=== PATIENT | female | born 1960 | race Caucasian/White ===

== ENCOUNTER 2020-11-05 09:41 | Outpatient (REF) | payer MEDICAID, SELFPAY | END 2020-11-05 09:42 | disposition home or self-care (01) | LOC: HO.LAB 09:41 | PROVIDERS: PCP Student in an Organized Health Care Education/Training Program; Visit Provider Internal Medicine | DX: Z20.828 Contact with and (suspected) exposure to other viral communicable diseases (principal) | CPT/HCPCS: C9803; U0003 ==

== ENCOUNTER → 2021-06-01 13:35 | Outpatient (BNVA) | payer MEDICAID, SELFPAY | PROVIDERS: PCP Student in an Organized Health Care Education/Training Program; Visit Provider Physician Assistant ==

== ENCOUNTER 2021-10-24 16:28 | Outpatient (REF) | payer MEDICAID, SELFPAY ==
--- NOTE | ~2021-10-24 | US_ITS ---
EXAMINATION: US VENOUS ULTRASOUND WITH DOPPLER LOWER EXTREMITY, LEFT CLINICAL INFORMATION: Left leg pain. COMPARISON: None TECHNIQUE: Ultrasound of the deep veins is performed from the hip to the calf with compression sonography and color and pulse Doppler assessment. Spectral analysis with color-flow imaging is performed. FINDINGS: There is normal venous compression and respiratory variation and augmented flow. The visualized common femoral vein, superficial femoral vein, profunda femoral vein, popliteal vein, and the trifurcation region shows no evidence of deep venous thrombosis. There is no significant popliteal fossa cyst. If the patient's symptoms persist, followup ultrasound in 5 days 7 days might be of value to exclude proximal propagation from a non-visualized calf vein. US/US venous duplex LE LT IMPRESSION: No DVT demonstrated in the left lower extremity.
--- NOTE | ~2021-10-24 | XR_ITS ---
EXAMINATION: XR KNEE, LEFT CLINICAL INFORMATION: Pain COMPARISON: None TECHNIQUE: Four views of the left knee. FINDINGS: Bones and soft tissues are normal. No fracture or joint effusion. Alignment is anatomic. Joint spaces are well maintained. No abnormal soft tissue calcification. XR/XR knee LT 4V IMPRESSION: No significant osseous changes to explain patient's pain symptoms No fracture. Joint spaces are preserved. Articular surfaces are smooth.
[2021-10-24 16:52] LABS: MANUAL DIFF FLAG NO
[2021-10-24 17:05] LABS: Basophils Absolute Auto 0.1 X10*3/uL (0.0-0.2); Basophils Percent Auto 0.6 % (0-2); Eosinophils Absolute Auto 0.2 X10*3/uL (0.0-0.4); Eosinophils Percent Auto 1.4 % (0-4); Hematocrit 37.1 % (37.0-47.0); Hemoglobin 12.5 g/dl (12.0-16.0); Imm Gran Abs Auto 0.05 X10*3/uL (0.00-0.03); Imm Gran Pct Auto 0.4 % (0.0-0.4); Lymphocytes Percent Auto 32.7 % (20-40); Mean Corpuscular HGB Conc 33.7 g/dl (31.0-35.0); Mean Corpuscular Hemoglobin 29.8 pg (27.0-33.0); Mean Corpuscular Volume 88.3 fL (80.0-98.0); Mean Platelet Volume 10.6 fL (9.4-12.3); Monocytes Absolute Auto 0.7 X10*3/uL (0.1-1.2); Monocytes Percent Auto 5.8 % (2-11); Neutrophils Absolute Auto 7.2 x10*3/uL (2.0-8.3); Neutrophils Percent Auto 59.1 % (45-73); Platelet Count 376 X10*3/uL (160-400); Red Cell Distribution Width 13.4 % (11.0-16.0); White Blood Count 12.2 X10*3/uL (4.8-10.8)
[2021-10-24 17:24] LABS: Anion Gap 15 (12-20); Blood Urea Nitrogen 14 mg/dL (9-16); Calcium 9.8 mg/dL (8.4-10.2); Carbon Dioxide 26 mmol/L (22-29); Chloride 104 mmol/L (96-108); Estimated Glomerular Filt Rate > 60; Glucose Random 133 mg/dL (60-115); Potassium 4.4 mmol/L (3.3-5.1); Sodium 141 mmol/L (135-145); Uric Acid 4.5 mg/dL (2.4-5.7)
[2021-10-24 18:39] LABS: Erythrocyte Sedimentation Rate 14 MM/HR (0-20)
== END 2021-10-24 16:29 | disposition home or self-care (01) ==
LOC: HO.US 16:28
PROVIDERS: Absent Provider Student in an Organized Health Care Education/Training Program; PCP Student in an Organized Health Care Education/Training Program; Visit Provider Internal Medicine
DX: M79.662 Pain in left lower leg (principal); M25.562 Pain in left knee
CPT/HCPCS: 36415; 73564; 80048; 84550; 85025; 85652; 86140; 93971

== ENCOUNTER 2021-11-14 08:23 | Outpatient (REF) | payer MEDICAID, SELFPAY ==
--- NOTE | ~2021-11-14 | MM_ITS ---
EXAMINATION: MM SCREENING DIGITAL BREAST TOMOSYNTHESIS, BILATERAL CLINICAL INFORMATION: Screening. Asymptomatic. The lifetime risk of breast cancer based on the Tyrer-Cuzick Model is 2%. COMPARISON: Mammography: 08/23/2020, 04/30/2019, 03/31/2018 TECHNIQUE: Digital breast tomosynthesis is performed in both the craniocaudal and mediolateral oblique views along with computer-aided detection (CAD). Synthesized 2D images are generated from the tomosynthesis. FINDINGS: There are scattered areas of fibroglandular density (ACR BI-RADS breast composition Category b). There are no significant masses, abnormal calcifications, or other abnormalities. Parenchymal pattern is similar to prior exams. No developing density. The skin contours are smooth. No significant changes. MM/MM tomosynthesis screening BI IMPRESSION: No mammographic evidence of malignancy. ASSESSMENT: BI-RADS 1: Negative RECOMMENDATION: Routine annual mammography screening. This patient's information was entered into a reminder system with a target due date for their next mammogram.
== END 2021-11-14 08:24 | disposition home or self-care (01) ==
LOC: HO.MAMMO 08:23
PROVIDERS: Visit Provider Student in an Organized Health Care Education/Training Program
DX: Z12.31 Encounter for screening mammogram for malignant neoplasm of breast (principal)
CPT/HCPCS: 77063; 77067

== ENCOUNTER → 2022-04-02 12:00 | Outpatient (BNVA) | payer MEDICAID, SELFPAY | PROVIDERS: PCP Student in an Organized Health Care Education/Training Program; Visit Provider Physician Assistant | DX: R19.4 Change in bowel habit (principal); Z53.20 Procedure and treatment not carried out because of patient's decision for unspecified reasons | CPT/HCPCS: 99212 ==

== ENCOUNTER 2022-05-30 09:23 | Outpatient (REF) | payer MEDICAID, SELFPAY ==
[2022-05-30 09:49] LABS: MANUAL DIFF FLAG NO
[2022-05-30 10:31] LABS: Basophils Absolute Auto 0.1 X10*3/uL (0.0-0.2); Basophils Percent Auto 0.9 % (0-2); Eosinophils Absolute Auto 0.2 X10*3/uL (0.0-0.4); Eosinophils Percent Auto 2.6 % (0-4); Hematocrit 35.3 % (37.0-47.0); Imm Gran Abs Auto 0.02 X10*3/uL (0.00-0.03); Imm Gran Pct Auto 0.2 % (0.0-0.4); Lymphocytes Absolute Auto 3.7 X10*3/uL (1.2-4.9); Lymphocytes Percent Auto 42.1 % (20-40); Mean Corpuscular Hemoglobin 29.4 pg (27.0-33.0); Mean Corpuscular Volume 86.5 fL (80.0-98.0); Mean Platelet Volume 10.7 fL (9.4-12.3); Monocytes Absolute Auto 0.5 X10*3/uL (0.1-1.2); Monocytes Percent Auto 6.1 % (2-11); Neutrophils Absolute Auto 4.2 x10*3/uL (2.0-8.3); Neutrophils Percent Auto 48.1 % (45-73); Platelet Count 338 X10*3/uL (160-400); Red Blood Count 4.08 X10*6/uL (4.20-5.50); Red Cell Distribution Width 13.8 % (11.0-16.0); White Blood Count 8.8 X10*3/uL (4.8-10.8)
[2022-05-30 11:00] LABS: Alanine Aminotransferase 20 U/L (0-31); Albumin Level 4.1 g/dL (3.5-5.0); Alkaline Phosphatase 102 U/L (39-117); Anion Gap 14 (12-20); Aspartate Amino Transferase 21 U/L (5-31); Bilirubin Total 0.2 mg/dL (0.0-1.0); Blood Urea Nitrogen 19 mg/dL (9-16); Calcium 9.3 mg/dL (8.4-10.2); Carbon Dioxide 27 mmol/L (22-29); Chloride 102 mmol/L (96-108); Estimated Glomerular Filt Rate > 60; Glucose Random 91 mg/dL (60-115); Potassium 5.2 mmol/L (3.3-5.1); Sodium 138 mmol/L (135-145); Total Protein 6.8 g/dL (6.5-8.0)
[2022-05-30 11:12] LABS: Erythrocyte Sedimentation Rate 11 MM/HR (0-20)
== END 2022-05-30 09:24 | disposition home or self-care (01) ==
LOC: HO.LAB 09:23
PROVIDERS: PCP Student in an Organized Health Care Education/Training Program; Visit Provider Physician Assistant
DX: R19.4 Change in bowel habit (principal); K52.9 Noninfective gastroenteritis and colitis, unspecified
CPT/HCPCS: 36415; 80053; 84443; 85025; 85652; 86140

== ENCOUNTER 2022-10-26 09:21 | Emergency (ER) | payer MEDICAID, SELFPAY ==
[2022-10-26 09:30] VITALS: BP 195/96; PULSE 98; RESP 18; TEMP 35.4; O2SAT 96; BMI 25.0
--- NOTE | 2022-10-26 09:36 | ED.GENADULT ---
HPI - General Adult General Chief complaint: Nausea/Vomiting/Diarrhea Stated complaint: flu like symptoms Time Seen by Provider: 10/26/22 09:36 Source: patient Mode of arrival: ambulatory Limitations: no limitations History of Present Illness HPI narrative: Pt is a 62 yo assigned female at w/ a PMHx significant for colitis, hypertension, and hypothyroidism presents w/ a 4 day hx of nausea, vomiting, and diarrhea. She reports that the vomiting stopped after the second day of symptoms but endorses continued diarrhea that is watery in consistency. She denies noting any blood or bile in her vomit and denies blood or mucous in her stool. She reports that she has not been able to eat anything since the start of symptoms but states she has been able to drink fluids. She denies cough, SOB, chest pain, or swelling in the lower extremities. She reports that she was in contact w/ someone who had similar symptoms on Saturday. Onset (ago): day(s) (4) Location: abdomen Radiation: non-radiation Severity: mild Severity scale (1-10): 2 Quality: dull Pain Consistency: constant Relieving factors: none Exacerbating factors: none Associated symptoms: nausea/vomiting Treatments prior to arrival: other (Tylenol) Related Data Home Medications Medication Instructions Recorded Confirmed calcium carbonate 500 mg-vitamin 1 tab PO BID 10/19/20 04/02/22 D3 3.125 mcg (125 unit) tablet conjugated estrogens 0.625 mg 0.625 mg PO DAILY 10/19/20 04/02/22 tablet (Premarin) cyclobenzaprine 10 mg tablet 10 mg PO TID 10/19/20 04/02/22 etodolac 400 mg tablet (Lodine) 400 mg PO BID 10/19/20 04/02/22 ibuprofen 800 mg tablet 800 mg PO BID 10/19/20 04/02/22 levothyroxine 50 mcg tablet 50 mcg PO DAILY 10/19/20 04/02/22 lisinopril 10 mg tablet 10 mg PO DAILY 10/19/20 04/02/22 loratadine 10 mg tablet 10 mg PO DAILY 10/19/20 04/02/22 multivitamin 1 tab PO DAILY 10/19/20 04/02/22 omega-3 fatty acids 1,000 mg 1,000 mg PO BID 10/19/20 04/02/22 capsule omeprazole 20 mg capsule,delayed 20 mg PO BID 10/19/20 04/02/22 release pregabalin 150 mg capsule (Lyrica) 150 mg PO TID 10/19/20 04/02/22 red yeast rice 600 mg tablet 600 mg PO DAILY 10/19/20 04/02/22 tolterodine 4 mg capsule,extended 4 mg PO QPM 10/19/20 04/02/22 release 24 hr (Detrol LA) meloxicam 7.5 mg tablet 7.5 mg PO DAILY 06/06/22 Previous Rx's Medication Instructions Recorded dicyclomine 10 mg capsule 20 mg PO TID #180 caps 02/28/22 dicyclomine 10 mg capsule 10 mg PO TID #90 caps 09/28/22 Allergies Allergy/AdvReac Type Severity Reaction Status Date / Time codeine [CODEINE] Allergy Intermediate VOMITTING Verified 07/11/22 09:57 milnacipran [From Savella] Allergy Intermediate Gastrointestinal Verified 07/11/22 09:57 Upset Review of Systems Constitutional: Constitutional: Denies chills, Denies difficulty sleeping, Denies fever(s), Denies headache(s), Denies lethargy and Denies night sweats Eyes: Eyes: Reports no additional eye complaints, Denies blurry vision, Denies change in vision, Denies diplopia, Denies eye discharge and Denies eye pain ENT: Denies headache(s) Cardiovascular: Cardiovascular: Reports no additional cardiovascular complaints, Denies chest pain, Reports lightheadedness, Denies Loss of Consciousness and Denies dyspnea Respiratory: Respiratory: Reports no additional respiratory complaints and Denies dyspnea Gastrointestinal: Gastrointestinal: Reports no additional gastrointestinal complaints, Reports abdominal pain, Denies melena, Denies hematochezia, Denies change in bowel habits, Reports change in stool character, Reports diarrhea, Reports nausea and Reports vomiting Genitourinary: Genitourinary: Denies hematuria, Denies dysuria, Denies urinary incontinence and Denies urinary urgency Musculoskeletal: Musculoskeletal: Reports no additional musculoskeletal complaints Neurologic: Denies headache(s) Psychiatric: Psychiatric: Reports no additional psychiatric complaints Endocrine: Endocrine: Reports no additional endocrine complaints Hematologic/Lymphatic: Hematologic/Lymphatic: Reports no additional hematologic/lymphatic complaints Allergic/Immunologic: Allergic/Immunologic: Reports no additional allergic/immunologic complaints PMFSH Past Medical History Attestation statement: The following information was validated with the patient. Source: old records reviewed Medical History Bowel habit changes Fibromyalgia GERD (gastroesophageal reflux disease) HTN (hypertension) Irritable bowel syndrome Joint pain Stress incontinence Thyroid disease Surgical History H/O colonoscopy History of bladder surgery History of esophagogastroduodenoscopy (EGD) Hx of hysterectomy Hx of ovarian cystectomy Hx of repair of left rotator cuff Hx of tubal ligation Social History Social History Household Members Other:: lives with BF Alcohol intake: never Patient Tobacco Use Status: Never used Tobacco Smoked in Last 30 Days: No Use of substances other than those prescribed or required for medical reasons: Yes Substance Use Type: Marijuana Advance Directives: No Current occupational status: employed Current occupation: [employer] Physical Exam ED Vital Signs: Vital Signs - 24 hr 10/26/22 09:30 10/26/22 09:50 Temperature 95.8 F L 97.9 F Pulse Rate 98 Respiratory Rate 18 Blood Pressure 195/96 H Pulse Oximetry 96 Oxygen Delivery Method Room Air BMI result Body Mass Index 25.0 Const General: cooperative, diaphoretic and tired appearing Nutritional Appearance: well nourished Orientation/consciousness: patient oriented x3 Limitations: no limitations HENMT Head: Yes normal to inspection Ears: hearing grossly normal bilaterally Mouth: Normal oral and palatal mucosa present and moist mucous membranes Neck Neck: Yes normal visual inspection and Yes no JVD Lymphatic: no lymphadenopathy noted Chest Chest palpation & inspection: normal inspection of the chest Resp Effort & Inspection: normal respiratory effort, able to speak in complete sentences, no audible wheezes, no cough and no respiratory distress Auscultation: clear to auscultation bilaterally Cardio Jugular venous distension: no JVD Rate: regular rate Rhythm: regular rhythm Heart sounds: S1 normal heart sound present and S2 normal heart sound present Peripheral pulses: Peripheral pulses 2+ throughout GI Inspection: Yes normal to inspection Palpation (GI): Soft to palpation, not firm, nontender, no guarding, not rigid, No hepatosplenomegaly present and No Rebound tenderness present Auscultation: normal bowel sounds Rectal Exam - Female: deferred Skin General skin exam: no rashes or lesions noted Neuro General: patient oriented x3 Medications Administered Discontinued Medications Generic Name Dose Route Start Last Admin Trade Name Guy PRN Reason Stop Dose Admin Acetaminophen 650 mg 10/26/22 11:20 10/26/22 11:25 Acetaminophen 325 Mg Tablet PO 10/26/22 11:21 650 mg ONCE ONE Administration Potassium Chloride 20 meq 10/26/22 10:40 10/26/22 11:13 Potassium Chloride Packet 20 Meq Packet PO 10/26/22 10:41 20 meq ONCE ONE Administration Medical Decision Making MDM Narrative Medical decision making narrative: Patient is a 62 year old assigned female at with a history of colitis, hypertension, and hypothyroidism presenting to the emergency department today with nausea, vomiting, and diarrhea. Patient's physical exam was unremarkable. Patient's blood work was unremarkable. Patient's EKG was unremarkable. I explained my physical exam findings as well as all test results to the patient. I answered all questions asked by the patient. I stressed the importance of the patient taking her medication as prescribed. I stressed the importance of the patient following up with her primary care provider. I stressed the importance of the patient returning to the emergency department immediately if her symptoms were to worsen or if she were to develop any dizziness, shortness of breath, difficulty breathing, chest pain, blurry vision, loss of vision, nausea, vomiting, abdominal pain, fever, chills, back pain, or any other complaints. Patient verbalized agreement and understanding with this treatment plan and discharge. Medical Records Medical records reviewed: Yes I reviewed the patient's medical records. Lab Data Lab results reviewed: Yes I reviewed the patient's lab results. Result diagrams: 10/26/22 10:06 10/26/22 10:06 Labs: Lab Results 10/26/22 10/26/22 10/26/22 Range/Units 09:35 09:35 10:06 WBC 8.9 (4.8-10.8) X10*3/uL RBC 4.77 (4.20-5.50) X10*6/uL Hgb 13.8 (12.0-16.0) g/dl Hct 40.4 (37.0-47.0) % MCV 84.7 (80.0-98.0) fL MCH 28.9 (27.0-33.0) pg MCHC 34.2 (31.0-35.0) g/dl RDW 13.7 (11.0-16.0) % Plt Count 302 (160-400) X10*3/uL MPV 9.6 (9.4-12.3) fL Immature Gran % (Auto) 0.3 (0.0-0.4) % Neut % (Auto) 65.0 (45-73) % Lymph % (Auto) 25.8 (20-40) % [place] % (Auto) 8.1 (2-11) % Eos % (Auto) 0.2 (0-4) % Baso % (Auto) 0.6 (0-2) % Lymph # (Auto) 2.3 (1.2-4.9) X10*3/uL [place] # (Auto) 0.7 (0.1-1.2) X10*3/uL Eos # (Auto) 0.0 (0.0-0.4) X10*3/uL Baso # (Auto) 0.1 (0.0-0.2) X10*3/uL Abs Immat Gran (auto) 0.03 (0.00-0.03) X10*3/uL Absolute Neuts (auto) 5.8 (2.0-8.3) x10*3/uL Absolute Nucleated RBC 0.000 (0.0-0.012) X10*3/uL Nucleated RBC % (auto) 0.0 (0.0-0.2) /100WBC Sodium (135-145) mmol/L Potassium (3.3-5.1) mmol/L Chloride (96-108) mmol/L Carbon Dioxide (22-29) mmol/L Anion Gap (12-20) BUN (9-16) mg/dL Creatinine (0.5-1.4) mg/dL Estim Creat Clear Calc Estimated GFR Random Glucose (60-115) mg/dL Calcium (8.4-10.2) mg/dL Magnesium (1.6-2.6) mg/dL Total Bilirubin (0.0-1.0) mg/dL AST (5-31) U/L ALT (0-31) U/L Alkaline Phosphatase (39-117) U/L Troponin I High Sens (<3.5-17.0) ng/L Total Protein (6.5-8.0) g/dL Albumin (3.5-5.0) g/dL COVID-19 (RADHIKA) Negative (Negative) COVID-19 Clin Com See Note Influenza Type A (SARAH) Negative (Negative) Influenza Type B (SARAH) Negative (Negative) Influenza A & B Note See Note 10/26/22 10/26/22 10/26/22 Range/Units 10:06 10:06 12:08 WBC (4.8-10.8) X10*3/uL RBC (4.20-5.50) X10*6/uL Hgb (12.0-16.0) g/dl Hct (37.0-47.0) % MCV (80.0-98.0) fL MCH (27.0-33.0) pg MCHC (31.0-35.0) g/dl RDW (11.0-16.0) % Plt Count (160-400) X10*3/uL MPV (9.4-12.3) fL Immature Gran % (Auto) (0.0-0.4) % Neut % (Auto) (45-73) % Lymph % (Auto) (20-40) % [place] % (Auto) (2-11) % Eos % (Auto) (0-4) % Baso % (Auto) (0-2) % Lymph # (Auto) (1.2-4.9) X10*3/uL [place] # (Auto) (0.1-1.2) X10*3/uL Eos # (Auto) (0.0-0.4) X10*3/uL Baso # (Auto) (0.0-0.2) X10*3/uL Abs Immat Gran (auto) (0.00-0.03) X10*3/uL Absolute Neuts (auto) (2.0-8.3) x10*3/uL Absolute Nucleated RBC (0.0-0.012) X10*3/uL Nucleated RBC % (auto) (0.0-0.2) /100WBC Sodium 138 (135-145) mmol/L Potassium 3.2 L D (3.3-5.1) mmol/L Chloride 98 (96-108) mmol/L Carbon Dioxide 24 (22-29) mmol/L Anion Gap 19 (12-20) BUN 9 D (9-16) mg/dL Creatinine 0.66 (0.5-1.4) mg/dL Estim Creat Clear Calc 75.6 Estimated GFR > 60 Random Glucose 124 H (60-115) mg/dL Calcium 9.4 (8.4-10.2) mg/dL Magnesium 1.9 (1.6-2.6) mg/dL Total Bilirubin 0.4 (0.0-1.0) mg/dL AST 31 D (5-31) U/L ALT 27 (0-31) U/L Alkaline Phosphatase 135 H D (39-117) U/L Troponin I High Sens 32.4 H 35.3 H (<3.5-17.0) ng/L Total Protein 7.5 (6.5-8.0) g/dL Albumin 4.4 (3.5-5.0) g/dL COVID-19 (RADHIKA) (Negative) COVID-19 Clin Com Influenza Type A (SARAH) (Negative) Influenza Type B (SARAH) (Negative) Influenza A & B Note ECG Data Attestation: I personally reviewed and interpreted this ECG as follows: Prior ECG tracings: available for review Interpretation: Vent. Rate: 068 BPM ? ? Atrial Rate: 068 BPM P-R Int: 130 ms? QRS Dur: 092 ms QT Int: 388 ms ? ? ? P-R-T Axes: 068 -42 090 degrees QTc Int: 412 ms ? Normal sinus rhythm with sinus arrhythmia Left anterior fascicular block Intra-ventricular conduction delay Left ventricular hypertrophy with repolarization abnormality ( R in aVL , Mohinder product , Romhilt-Krishna ) Abnormal ECG When compared with ECG of 15-SEP-2019 15:43, No significant change was found ? Electronically Signed By:FADY BROOKS MD Dictated By: Karan Brooks MD Signed By: Electronically signed by Kaarn Brooks MD 10/26/22 2285 Discharge Plan Discharge Clinical Impression: Enteritis Patient Disposition: Home, Self-Care Instructions: Enteritis (ED) Additional Instructions: Follow up with your primary care provider. Return to the emergency department immediately if your symptoms worsen or if you develop any dizziness, shortness of breath, difficulty breathing, chest pain, blurry vision, loss of vision, nausea, vomiting, abdominal pain, fever, chills, back pain, or any other complaints. Prescriptions: No Action multivitamin Tablet 1 tab PO DAILY cyclobenzaprine 10 mg Tablet 10 mg PO TID omega-3 fatty acids 1,000 mg Capsule 1,000 mg PO BID ibuprofen 800 mg Tablet 800 mg PO BID tolterodine [Detrol LA] 4 mg Capsule,Extended Release 24hr 4 mg PO QPM levothyroxine 50 mcg Tablet 50 mcg PO DAILY lisinopril 10 mg Tablet 10 mg PO DAILY Premarin 0.625 mg Tablet 0.625 mg PO DAILY omeprazole 20 mg Capsule,Delayed Release(Dr/Ec) 20 mg PO BID etodolac [Lodine] 400 mg Tablet 400 mg PO BID loratadine 10 mg Tablet 10 mg PO DAILY pregabalin [Lyrica] 150 mg Capsule 150 mg PO TID calcium carbonate-vitamin D3 [Calcium 500 + D (D3)] 500 mg(1,250mg) -125 unit Tablet 1 tab PO BID red yeast rice 600 mg Tablet 600 mg PO DAILY dicyclomine 10 mg capsule 20 mg PO TID Qty: 180 1RF dicyclomine 10 mg capsule 10 mg PO TID Qty: 90 0RF meloxicam 7.5 mg tablet 7.5 mg PO DAILY Referrals: Perlita Dill MD [Primary Care Provider] - Stand Alone Forms: Work/School Release Interventions: ED Discharge Assessment Last Done: 10/26/22 13:03 Discharge Date/Time: 10/26/22 13:03 Print Language: Kazakh
--- NOTE | 2022-10-26 09:49 | ECG_ITS ---
Test Reason : Abd pain Blood Pressure : / mmHG Vent. Rate : 068 BPM Atrial Rate : 068 BPM P-R Int : 130 ms QRS Dur : 092 ms QT Int : 388 ms P-R-T Axes : 068 -42 090 degrees QTc Int : 412 ms Normal sinus rhythm with sinus arrhythmia Left anterior fascicular block Intra-ventricular conduction delay Left ventricular hypertrophy with repolarization abnormality ( R in aVL , Mohinder product , Romhilt-Krishna ) Abnormal ECG When compared with ECG of 15-SEP-2019 15:43, No significant change was found Referred By: Crystal Hudson Electronically Signed By:FADY BROOKS MD
[2022-10-26 09:50] VITALS: TEMP 36.6
[2022-10-26 09:58] LABS: COVID-19 Test Negative (Negative); IDNOW Serial# 16C4AD1C
[2022-10-26 09:59] LABS: IDNOW Serial# BCCEAD1C; Influenza A Negative (Negative); Influenza B2 Negative (Negative)
[2022-10-26 10:12] LABS: MANUAL DIFF FLAG NO
[2022-10-26 10:13] LABS: Basophils Absolute Auto 0.1 X10*3/uL (0.0-0.2); Basophils Percent Auto 0.6 % (0-2); Eosinophils Percent Auto 0.2 % (0-4); Hematocrit 40.4 % (37.0-47.0); Hemoglobin 13.8 g/dl (12.0-16.0); Imm Gran Abs Auto 0.03 X10*3/uL (0.00-0.03); Imm Gran Pct Auto 0.3 % (0.0-0.4); Lymphocytes Absolute Auto 2.3 X10*3/uL (1.2-4.9); Lymphocytes Percent Auto 25.8 % (20-40); Mean Corpuscular HGB Conc 34.2 g/dl (31.0-35.0); Mean Corpuscular Hemoglobin 28.9 pg (27.0-33.0); Mean Corpuscular Volume 84.7 fL (80.0-98.0); Mean Platelet Volume 9.6 fL (9.4-12.3); Monocytes Absolute Auto 0.7 X10*3/uL (0.1-1.2); Monocytes Percent Auto 8.1 % (2-11); Neutrophils Absolute Auto 5.8 x10*3/uL (2.0-8.3); Platelet Count 302 X10*3/uL (160-400); Red Blood Count 4.77 X10*6/uL (4.20-5.50); Red Cell Distribution Width 13.7 % (11.0-16.0); White Blood Count 8.9 X10*3/uL (4.8-10.8)
[2022-10-26 10:38] LABS: Alanine Aminotransferase 27 U/L (0-31); Albumin Level 4.4 g/dL (3.5-5.0); Alkaline Phosphatase 135 U/L (39-117); Anion Gap 19 (12-20); Aspartate Amino Transferase 31 U/L (5-31); Bilirubin Total 0.4 mg/dL (0.0-1.0); Blood Urea Nitrogen 9 mg/dL (9-16); Calcium 9.4 mg/dL (8.4-10.2); Carbon Dioxide 24 mmol/L (22-29); Chloride 98 mmol/L (96-108); Creatinine Clr Calc Pharmacy 75.6; Estimated Glomerular Filt Rate > 60; Glucose Random 124 mg/dL (60-115); Magnesium 1.9 mg/dL (1.6-2.6); Potassium 3.2 mmol/L (3.3-5.1); Sodium 138 mmol/L (135-145); Total Protein 7.5 g/dL (6.5-8.0)
[2022-10-26 10:41] LABS: Troponin-I High Sensitivity 32.4 ng/L (<3.5-17.0)
--- NOTE | 2022-10-26 10:56 | PC.NURSE ---
Provider instructed she does not want an IV line
[2022-10-26] MEDS: Potassium Chloride Packet 20 MEQ PACKET PO (11:13)
[2022-10-26] MEDS: Acetaminophen 325 MG TABLET 650 MG PO (11:25)
[2022-10-26 12:32] LABS: Troponin-I High Sensitivity 35.3 ng/L (<3.5-17.0)
== END 2022-10-26 13:03 | disposition home or self-care (01) ==
PROVIDERS: Physician Assistant Medical; Emergency Provider Emergency Medicine Emergency Medical Services; PCP Student in an Organized Health Care Education/Training Program
DX: K52.9 Noninfective gastroenteritis and colitis, unspecified (principal); Z20.822 Contact with and (suspected) exposure to COVID-19; I10 Essential (primary) hypertension; F12.90 Cannabis use, unspecified, uncomplicated; Z79.899 Other long term (current) drug therapy
CPT/HCPCS: 36415; 80053; 83735; 84484; 85025; 87502; 87635; 93005; 99283; 99284

== ENCOUNTER 2022-10-28 10:21 | Emergency (ER) | payer MEDICAID, SELFPAY ==
[2022-10-28 11:06] VITALS: BP 175/91; PULSE 86; RESP 17; TEMP 35.2; O2SAT 98; BMI 25.2
--- NOTE | 2022-10-28 11:08 | ED_ITS ---
HPI - General Adult General Chief complaint: Nausea/Vomiting/Diarrhea Stated complaint: virus in stomach Time Seen by Provider: 10/28/22 11:08 Source: patient and family (mother) Mode of arrival: ambulatory Limitations: no limitations History of Present Illness HPI narrative: Patient is a 62 year old assigned female at with a history of colitis presenting to the emergency department today with continued diarrhea and nausea. Patient states that she was evaluated here 2 days ago and diagnosed with a viral illness however, she is still having diarrhea and some intermittent nausea. Patient states that she has not taken any anti-diarrheal. Patient denies any dizziness, lightheadedness, abdominal pain, vomiting, fever, chills, blurry vision, double vision, loss of vision, chest pain, difficulty breathing, shortness of breath, back pain, night sweats, pain with urination, increased urinary frequency, increased urinary urgency, blood in her urine or stool, syncope or a near syncopal episode, recent trauma or falls, bowel incontinence, bladder incontinence, bowel retention, bladder retention, or any other complaints at this time. Onset (ago): day(s) Severity: mild Severity scale (1-10): 2 Relieving factors: none Exacerbating factors: none Associated symptoms: nausea/vomiting Treatments prior to arrival: none Related Data Home Medications Medication Instructions Recorded Confirmed calcium carbonate 500 mg-vitamin 1 tab PO BID 10/19/20 04/02/22 D3 3.125 mcg (125 unit) tablet conjugated estrogens 0.625 mg 0.625 mg PO DAILY 10/19/20 04/02/22 tablet (Premarin) cyclobenzaprine 10 mg tablet 10 mg PO TID 10/19/20 04/02/22 etodolac 400 mg tablet (Lodine) 400 mg PO BID 10/19/20 04/02/22 ibuprofen 800 mg tablet 800 mg PO BID 10/19/20 04/02/22 levothyroxine 50 mcg tablet 50 mcg PO DAILY 10/19/20 04/02/22 lisinopril 10 mg tablet 10 mg PO DAILY 10/19/20 04/02/22 loratadine 10 mg tablet 10 mg PO DAILY 10/19/20 04/02/22 multivitamin 1 tab PO DAILY 10/19/20 04/02/22 omega-3 fatty acids 1,000 mg 1,000 mg PO BID 10/19/20 04/02/22 capsule omeprazole 20 mg capsule,delayed 20 mg PO BID 10/19/20 04/02/22 release pregabalin 150 mg capsule (Lyrica) 150 mg PO TID 10/19/20 04/02/22 red yeast rice 600 mg tablet 600 mg PO DAILY 10/19/20 04/02/22 tolterodine 4 mg capsule,extended 4 mg PO QPM 10/19/20 04/02/22 release 24 hr (Detrol LA) meloxicam 7.5 mg tablet 7.5 mg PO DAILY 06/06/22 Previous Rx's Medication Instructions Recorded dicyclomine 10 mg capsule 20 mg PO TID #180 caps 02/28/22 dicyclomine 10 mg capsule 10 mg PO TID #90 caps 09/28/22 ondansetron 4 mg disintegrating 4 mg PO Q8H 3 days #9 tabs 10/28/22 tablet Allergies Allergy/AdvReac Type Severity Reaction Status Date / Time codeine [CODEINE] Allergy Intermediate VOMITTING Verified 07/11/22 09:57 milnacipran [From Savella] Allergy Intermediate Gastrointestinal Verified 07/11/22 09:57 Upset Review of Systems Constitutional: Constitutional: Reports no additional constitutional complaints, Denies chills, Denies fever(s) and Denies night sweats Eyes: Eyes: Reports no additional eye complaints, Denies blurry vision, Denies change in vision, Denies diplopia, Denies eye discharge, Denies loss of vision and Denies eye pain ENT: Denies dizziness Cardiovascular: Cardiovascular: Reports no additional cardiovascular complaints, Denies chest pain, Denies lightheadedness, Denies Loss of Consciousness and Denies dyspnea Respiratory: Respiratory: Reports no additional respiratory complaints and Denies dyspnea Gastrointestinal: Gastrointestinal: Reports no additional gastrointestinal complaints, Denies abdominal pain, Denies melena, Denies hematochezia, Denies change in bowel habits, Denies change in stool character, Reports diarrhea and Reports nausea Genitourinary: Genitourinary: Denies hematuria, Denies urinary frequency, Denies dysuria, Denies urinary incontinence, Denies urinary hesitancy and Denies urinary urgency Musculoskeletal: Musculoskeletal: Reports no additional musculoskeletal complaints, Denies numbness and Denies tingling Neurologic: Denies dizziness, Denies loss of vision, Denies numbness and Denies tingling Psychiatric: Psychiatric: Reports no additional psychiatric complaints Endocrine: Endocrine: Reports no additional endocrine complaints Hematologic/Lymphatic: Hematologic/Lymphatic: Reports no additional hematologic/lymphatic complaints Allergic/Immunologic: Allergic/Immunologic: Reports no additional allergic/immunologic complaints PMFSH Past Medical History Attestation statement: The following information was validated with the patient. Source: old records reviewed Medical History Bowel habit changes Fibromyalgia GERD (gastroesophageal reflux disease) HTN (hypertension) Irritable bowel syndrome Joint pain Stress incontinence Thyroid disease Surgical History H/O colonoscopy History of bladder surgery History of esophagogastroduodenoscopy (EGD) Hx of hysterectomy Hx of ovarian cystectomy Hx of repair of left rotator cuff Hx of tubal ligation Social History Social History Household Members Other:: lives with BF Alcohol intake: never Patient Tobacco Use Status: Never used Tobacco Substance Use Type: Marijuana Advance Directives: No Advance Directives Information Provided: No Current occupational status: employed Current occupation: [employer] Physical Exam ED Vital Signs: Vital Signs - 24 hr 10/28/22 11:06 Temperature 95.4 F L Pulse Rate 86 Respiratory Rate 17 Blood Pressure 175/91 H Pulse Oximetry 98 Oxygen Delivery Method Room Air BMI result Body Mass Index 25.2 Const General: cooperative, no acute distress, alert and awake Nutritional Appearance: well nourished Orientation/consciousness: patient oriented x3 Limitations: no limitations [facility] Head: Yes normal to inspection and Yes atraumatic Ears: hearing grossly normal bilaterally and external ears normal General nose exam: Normal external nose present, no nasal discharge noted and no epistaxis Face and sinus: Yes normal facial exam, No abrasion and No laceration Mouth: Normal oral and palatal mucosa present, no drooling and no muffled voice Eyes General: appearance normal, both eyes and all related structures Periorbital: periorbital findings normal Eyelids: Yes eyelids normal Conjunctivae: conjunctivae normal Pupils: Equal, round and reactive pupils present EOM: EOMs intact bilaterally Neck Neck: Yes normal visual inspection, Yes full ROM and Yes no lymphadenopathy Chest Chest palpation & inspection: normal inspection of the chest Resp Effort & Inspection: normal respiratory effort and able to speak in complete sentences Auscultation: clear to auscultation bilaterally Cardio Rate: regular rate Rhythm: regular rhythm GI Inspection: Yes normal to inspection Palpation (GI): Soft to palpation, not firm, nontender, no guarding and not rigid Neuro General: patient oriented x3 and moves all extremities Cranial nerves: Yes Equal, round and reactive pupils present Cognition (Neuro): normal cognition Motor exam (neuro): 5/5 motor strength present throughout Sensory Exam: Normal double simultaneous stimulation for sensation Coordination: [id number] test normal Extrem General: Yes normal to inspection, Yes full ROM and Yes capillary refill normal Psych Appearance: grossly normal Mental Status: mental status grossly normal Affect: normal affect Attitude: cooperative Thought process: Normal thought process present Thought content: Normal thought content present Insight: Good insight present (Psych) Medical Decision Making MDM Narrative Medical decision making narrative: Patient is a 62 year old assigned female at with a history of colitis presenting to the emergency department today with continued diarrhea and nausea. Patient's physical exam was unremarkable. Patient stated that she would prefer to have something for the nausea and take an anti-diarrheal at home rather than have more testing done today since nothing has changed since she was seen the other day. I explained my physical exam findings to the patient and the patient's mother. I answered all questions asked by the patient and the patient's mother. I stressed the importance of the patient taking her medication as prescribed. I stressed the importance of the patient following up with her primary care provider and her GI specialist. I stressed the importance of the patient returning to the emergency department immediately if her symptoms were to worsen or if she were to develop any dizziness, shortness of breath, difficulty breathing, chest pain, blurry vision, loss of vision, nausea, vomiting, abdominal pain, fever, chills, back pain, or any other complaints. Patient and the patient's mother verbalized agreement and understanding with this treatment plan and discharge. Medical Records Medical records reviewed: Yes I reviewed the patient's medical records. Discharge Plan Discharge Clinical Impression: Enteritis Patient Disposition: Home, Self-Care Instructions: Enteritis (ED) Additional Instructions: Follow up with your primary care provider and a GI specialist. Return to the emergency department immediately if your symptoms worsen or if you develop any dizziness, shortness of breath, difficulty breathing, chest pain, blurry vision, loss of vision, nausea, vomiting, abdominal pain, fever, chills, back pain, or any other complaints. Prescriptions: New ondansetron 4 mg tablet,disintegrating 4 mg PO Q8H 3 Days Qty: 9 0RF No Action multivitamin Tablet 1 tab PO DAILY cyclobenzaprine 10 mg Tablet 10 mg PO TID omega-3 fatty acids 1,000 mg Capsule 1,000 mg PO BID ibuprofen 800 mg Tablet 800 mg PO BID tolterodine [Detrol LA] 4 mg Capsule,Extended Release 24hr 4 mg PO QPM levothyroxine 50 mcg Tablet 50 mcg PO DAILY lisinopril 10 mg Tablet 10 mg PO DAILY Premarin 0.625 mg Tablet 0.625 mg PO DAILY omeprazole 20 mg Capsule,Delayed Release(Dr/Ec) 20 mg PO BID etodolac [Lodine] 400 mg Tablet 400 mg PO BID loratadine 10 mg Tablet 10 mg PO DAILY pregabalin [Lyrica] 150 mg Capsule 150 mg PO TID calcium carbonate-vitamin D3 [Calcium 500 + D (D3)] 500 mg(1,250mg) -125 unit Tablet 1 tab PO BID red yeast rice 600 mg Tablet 600 mg PO DAILY dicyclomine 10 mg capsule 20 mg PO TID Qty: 180 1RF dicyclomine 10 mg capsule 10 mg PO TID Qty: 90 0RF meloxicam 7.5 mg tablet 7.5 mg PO DAILY Referrals: [facility] [place] [facility] [Provider Group] Perlita Dill MD [Primary Care Provider] - Interventions: ED Discharge Assessment Last Done: 10/28/22 11:19 Discharge Date/Time: 10/28/22 11:19 Print Language: Pashto
== END 2022-10-28 11:19 | disposition home or self-care (01) ==
LOC: HO.ED 11:22
PROVIDERS: Emergency Provider Emergency Medicine; PCP Student in an Organized Health Care Education/Training Program
DX: K52.9 Noninfective gastroenteritis and colitis, unspecified (principal); Z79.899 Other long term (current) drug therapy
CPT/HCPCS: 99282

== ENCOUNTER 2022-11-30 12:06 | Outpatient (REF) | payer MEDICAID, SELFPAY ==
--- NOTE | ~2022-11-30 | MM_ITS ---
EXAMINATION: MM SCREENING DIGITAL BREAST TOMOSYNTHESIS, BILATERAL CLINICAL INFORMATION: Screening. Asymptomatic. The lifetime risk of breast cancer based on the Tyrer-Cuzick Model is 3%. COMPARISON: Mammography: 11/14/2021, 08/23/2020, 04/30/2019 TECHNIQUE: Digital breast tomosynthesis is performed in both the craniocaudal and mediolateral oblique views along with computer-aided detection (CAD). Synthesized 2D images are generated from the tomosynthesis. FINDINGS: There are scattered areas of fibroglandular density (ACR BI-RADS breast composition Category b). There are no significant masses, abnormal calcifications, or other abnormalities. Parenchymal pattern is similar to prior studies. There is no developing density or architectural abnormality. The axilla and skin contours are unremarkable. No significant changes. MM/MM tomosynthesis screening BI IMPRESSION: No mammographic evidence of malignancy. ASSESSMENT: BI-RADS 1: Negative RECOMMENDATION: Routine annual mammography screening. This patient's information was entered into a reminder system with a target due date for their next mammogram.
== END 2022-11-30 12:07 | disposition home or self-care (01) ==
LOC: HO.MAMMO 12:06
PROVIDERS: PCP Student in an Organized Health Care Education/Training Program; Visit Provider Student in an Organized Health Care Education/Training Program
DX: Z12.31 Encounter for screening mammogram for malignant neoplasm of breast (principal)
CPT/HCPCS: 77063; 77067

== ENCOUNTER 2023-07-12 10:43 | Outpatient (REF) | payer MEDICAID, SELFPAY ==
[2023-07-12 15:21] LABS: Cholesterol 147 mg/dL; HDL Cholesterol 44 mg/dL; LDL Cholesterol Calculated 36 mg/dl; Triglycerides 336 mg/dL
== END 2023-07-12 10:44 | disposition home or self-care (01) ==
LOC: HO.CHCLDS 10:43
PROVIDERS: Visit Provider Family Medicine
DX: E78.5 Hyperlipidemia, unspecified (principal)
CPT/HCPCS: 36415; 80061

== ENCOUNTER 2023-08-12 14:10 | Outpatient (AMB) | payer MEDICAID, SELFPAY ==
--- NOTE | 2023-08-12 14:16 | A.OFFVIS_ITS ---
Intake Vital Signs 08/12/23 14:41 Height 5 ft 2 in BP 133/70 Blood Pressure Location Lt brachial Pulse 70 Intake Visit Reasons: refill request appointment Allergies codeine [CODEINE] Allergy (Intermediate, Verified 07/11/22 09:57) VOMITTING milnacipran [From Savella] Allergy (Intermediate, Verified 07/11/22 09:57) Gastrointestinal Upset Medication List - Last Reconciled 08/12/23 by Dona Leo PA-C calcium carbonate-vitamin D3 500 mg-3.125 mcg (125 unit) 1 tab PO BID conjugated estrogens (Premarin) 0.625 mg PO DAILY cyclobenzaprine 10 mg PO TID dicyclomine 10 mg PO TID 30 days etodolac (Lodine) 400 mg PO BID ibuprofen 800 mg PO BID levothyroxine 50 mcg PO DAILY lisinopril 10 mg PO DAILY loratadine 10 mg PO DAILY meloxicam 7.5 mg PO DAILY multivitamin 1 tab PO DAILY omega-3 fatty acids 1,000 mg PO BID omeprazole 20 mg PO BID ondansetron 4 mg PO Q8H 3 days pregabalin (Lyrica) 150 mg PO TID red yeast rice 600 mg PO DAILY tolterodine ER (Detrol LA) 4 mg PO QPM HPI HPI Comments History of Present Illness Details A 63 y/o female seen about 1 year ago- she had declined colonoscopy- she had agreed to cologuard-negative She is taking dicyclomine 10 mg- t.i.d., with good response for IBS - she is not having a colonoscopy- She again is telling me she was dx with colitis in 2005-she has abdominal pain-diarrhea- flare ups, she says she distinctly recalls the diagnoses, however she did not follow with doctors region for colonoscopy She has a normal bowel pattern however then says she cannot go without taking dicyclomine or she has diarrhea lasting an entire day or more-a significant cramping Appetite is good-no acid reflux No respiratory or cardiac issues No nausea, vomiting, hematemesis, hematochezia fever chills [facility] Medical History (Updated 08/13/23 @ 08:54 by Dona Leo PA-C) History of colitis Bowel habit changes GERD (gastroesophageal reflux disease) Thyroid disease Fibromyalgia Joint pain Irritable bowel syndrome Stress incontinence HTN (hypertension) Surgical History Hx of ovarian cystectomy Hx of repair of left rotator cuff Hx of tubal ligation Hx of hysterectomy History of bladder surgery History of esophagogastroduodenoscopy (EGD) H/O colonoscopy Social History Household Members Other:: lives with BF Alcohol intake: never Patient Tobacco Use Status: Never used Tobacco Substance Use Type: Marijuana Current occupational status: employed Current occupation: [employer] Review of Systems Const All systems reviewed & are unremarkable except as noted in HPI and below Card Denies chest pain and Denies dyspnea Resp Denies dyspnea GI Denies hematochezia, Reports GI cramping, Reports diarrhea, Reports loose stools, Denies nausea and Denies vomiting Psych Reports anxiety Physical Exam Vital Signs: Last Vital Signs Pulse 70 08/12/23 14:41 BP 133/70 08/12/23 14:41 Const General: cooperative, healthy appearing, comfortable and no acute distress Orientation/consciousness: patient oriented x3 Limitations: no limitations Eyes Conjunctivae: conjunctivae normal Sclerae: sclerae normal Resp Effort & Inspection: normal respiratory effort and able to speak in complete sentences Auscultation: clear to auscultation bilaterally, no rales, no rhonchi and no wheezes Cardio Rate: regular rate Rhythm: regular rhythm Heart sounds: S1 normal heart sound present and S2 normal heart sound present GI Palpation (GI): Soft to palpation and nontender Auscultation: normal bowel sounds Skin General skin exam: no rashes or lesions noted Neuro General: patient oriented x3 Extrem General: Yes full ROM Psych Appearance: grossly normal and well kempt Speech and movement: Clear speech present Affect: Animated affect present and Anxious affect present Attitude: cooperative Thought process: Flight of ideas present Thought content: Normal thought content present Insight: Good insight present (Psych) Judgement: Good judgement present (Psych) Assessment & Plan Assessment & Plan (1) Bowel habit changes: Comment: ? DX colits-recommend colonoscopy for further eval had declined initially however discuss benefit risk ratio she has now agreed-GI history is unclear R/O IBD-other endoscopic causes to account for her symptoms she may cont-dicyclomine 10 mg-she has good response Code(s): R19.4 - Change in bowel habit (2) History of colitis: Code(s): Z87.19 - Personal history of other diseases of the digestive system Plan dx Colonoscopy, MiraLax Gatorade split prep She will do labs and stool calprotectin Orders: Orders Colonoscopy - GI Use Only 08/12/23 Z12.11 - Encounter for screening for malignant neoplasm of colon Calprotectin, Fecal Today R19.7 - Diarrhea, unspecified Complete Blood Count Auto Diff Today K52.9 - Noninfective gastroenteritis and colitis, unspecified Comprehensive Met. Panel Today K58.9 - Irritable bowel syndrome without diarrhea Thyroid Stimulating Hormone Today R19.8 - Other specified symptoms and signs involving the digestive system and abdomen C Reactive Protein Today R19.4 - Change in bowel habit, Z87.19 - Personal history of other diseases of the digestive system Erythrocyte Sedimentation Rate Today R19.7 - Diarrhea, unspecified Endomysial IgA rflx Titer Today Z87.19 - Personal history of other diseases of the digestive system Transglutaminase IgA Today R19.7 - Diarrhea, unspecified Medications: New polyethylene glycol 3350 (Miralax) Take as directed by mouth the day before your procedure. 238 grams PO ONCE PRN 238 grams 0RF laxative effect 1 day bisacodyl (Dulcolax (bisacodyl)) Take 4 tablets by mouth at 12:00pm the day before your procedure. 20 mg (4 x 5 mg) PO ONCE 4 tabs 0RF colonoscopy prep 1 day Z12.11 - Encounter for screening for malignant neoplasm of colon Changed From dicyclomine 10 mg PO TID 90 caps 3RF To dicyclomine 10 mg PO TID 30 days 90 caps 1RF Refilled dicyclomine 10 mg PO TID 90 caps 2RF 30 days Patient Instructions: 63-year-old female intermittent diarrhea abdominal cramping GI history is unclear had recommend colonoscopy previously which she had declined Detailed discussion today benefit versus risk ratio discussed procedure, indication, need for escorted due to anesthesia as well as MiraLax Gatorade split prep. She has now agreed to proceed. Colonoscopy- Encouraged to call questions or concerns. We appreciate the opportunity assist in the care the patient Coding Level of Care Code Est Pt Level 3 (01788) Diagnoses Bowel habit changes R19.4 History of colitis Z87.19 Time Spent (min) 35
[2023-08-12 14:41] VITALS: BP 133/70; PULSE 70
== END 2023-08-12 16:15 | disposition home or self-care (01) ==
PROVIDERS: PCP Student in an Organized Health Care Education/Training Program; Visit Provider Physician Assistant
DX: R19.4 Change in bowel habit (principal); Z87.19 Personal history of other diseases of the digestive system
CPT/HCPCS: 99213

== ENCOUNTER → 2023-08-12 14:10 | Outpatient (BNVA) | payer MEDICAID, SELFPAY | PROVIDERS: PCP Student in an Organized Health Care Education/Training Program; Visit Provider Physician Assistant | DX: R19.4 Change in bowel habit (principal); Z87.19 Personal history of other diseases of the digestive system | CPT/HCPCS: 99212 ==

== ENCOUNTER 2023-09-23 08:36 | Outpatient (REF) | payer MEDICAID, SELFPAY ==
[2023-09-23 14:52] LABS: MANUAL DIFF FLAG NO
[2023-09-23 15:00] LABS: Basophils Absolute Auto 0.1 X10*3/uL (0.0-0.2); Basophils Percent Auto 1.1 % (0-2); Eosinophils Absolute Auto 0.2 X10*3/uL (0.0-0.4); Eosinophils Percent Auto 2.9 % (0-4); Hematocrit 31.4 % (37.0-47.0); Hemoglobin 10.6 g/dl (12.0-16.0); Imm Gran Abs Auto 0.02 X10*3/uL (0.00-0.03); Imm Gran Pct Auto 0.3 % (0.0-0.4); Lymphocytes Absolute Auto 3.4 X10*3/uL (1.2-4.9); Lymphocytes Percent Auto 42.2 % (20-40); Mean Corpuscular HGB Conc 33.8 g/dl (31.0-35.0); Mean Platelet Volume 11.7 fL (9.4-12.3); Monocytes Absolute Auto 0.6 X10*3/uL (0.1-1.2); Neutrophils Absolute Auto 3.7 x10*3/uL (2.0-8.3); Neutrophils Percent Auto 46.5 % (45-73); Platelet Count 356 X10*3/uL (160-400); Red Blood Count 3.53 X10*6/uL (4.20-5.50); Red Cell Distribution Width 13.4 % (11.0-16.0)
[2023-09-23 15:20] LABS: Cholesterol 185 mg/dL (<200); HDL Cholesterol 49 mg/dL (>40); Iron 76 mcg/dL (30-160); LDL Cholesterol Calculated 78 mg/dL (<100); Percent Iron Saturation 16 % (15-50); Total Iron Binding Capacity 476 mcg/dL (228-428); Triglycerides 290 mg/dL (<150); Unsaturated Iron Binding 400 ug/dL
[2023-09-23 15:30] LABS: Ferritin 45 ng/mL (10-250)
[2023-09-25 23:32] LABS: Apolipoprotein B 106 mg/dL (<90)
== END 2023-09-23 08:37 | disposition home or self-care (01) ==
LOC: HO.CHCLDS 08:36
PROVIDERS: Visit Provider Family Medicine
DX: D64.9 Anemia, unspecified (principal); E78.5 Hyperlipidemia, unspecified
CPT/HCPCS: 36415; 80061; 82172; 82728; 83540; 85025

== ENCOUNTER 2023-12-06 11:46 | Outpatient (REF) | payer MEDICAID, SELFPAY ==
--- NOTE | ~2023-12-06 | MM_ITS ---
EXAMINATION: MM SCREENING DIGITAL BREAST TOMOSYNTHESIS, BILATERAL CLINICAL INFORMATION: Screening. Asymptomatic. COMPARISON: Mammography: 11/30/2022, 11/14/2021, 08/23/2020, 04/30/2019, and dating back to 2011. TECHNIQUE: Digital breast tomosynthesis is performed in both the craniocaudal and mediolateral oblique views along with computer-aided detection (CAD). Synthesized 2D images are generated from the tomosynthesis. FINDINGS: There are scattered areas of fibroglandular density (ACR BI-RADS breast composition Category b). There are no suspicious masses, suspicious grouped calcifications, or areas of architectural distortion in either breast. The parenchymal pattern is stable from prior exams. No skin or axillary changes. MM/MM tomosynthesis screening BI IMPRESSION: No mammographic evidence of malignancy. ASSESSMENT: BI-RADS BI-RADS 1 - Negative RECOMMENDATION: Routine annual mammography screening. 1 year F/U This examination should not preclude the clinical evaluation of a suspicious palpable abnormality. This patient's information was entered into a reminder system with a target due date for their next mammogram.
== END 2023-12-06 11:47 | disposition home or self-care (01) ==
LOC: HO.MAMMO 11:46
PROVIDERS: PCP Family Medicine; Visit Provider Family Medicine
DX: Z12.31 Encounter for screening mammogram for malignant neoplasm of breast (principal)
CPT/HCPCS: 77063; 77067

== ENCOUNTER → 2023-12-06 12:15 | Outpatient (BNV) | payer MEDICAID, SELFPAY | PROVIDERS: PCP Family Medicine; Visit Provider Radiology Diagnostic Radiology | DX: Z12.31 Encounter for screening mammogram for malignant neoplasm of breast (principal) | CPT/HCPCS: 77063; 77067 ==

== ENCOUNTER 2024-01-06 09:03 | Outpatient (REF) | payer MEDICAID, SELFPAY ==
--- NOTE | ~2024-01-06 | XR_ITS ---
EXAMINATION: XR CERVICAL SPINE CLINICAL INFORMATION: Neck pain, crepitus COMPARISON: Cervical spine x-ray on 11/19/2016 TECHNIQUE: 5 views of the cervical spine were obtained. FINDINGS: The visualized cervical vertebrae are intact with mild C4-C5 kyphosis. There is grade 1 C5-C6 retrolisthesis. There is severe loss of C5-C6 and C6-C7 intervertebral disc height. Anterior sharp C5-C7 syndesmophytes are present. Odontoid process is intact with normal C1/C2 lateral masses alignment. Pre-dental interval is normal. Pre vertebral soft tissue is normal in thickness. Bilateral oblique x-rays of cervical spine show patent cervical neural foramina. XR/XR cervical spine 4V IMPRESSION: 1. Interval progression of Cervical spondylosis C5-C7. 2. Unchanged Grade 1 retrolisthesis C5-C6. 3. No acute fracture or dislocation. No neural foraminal narrowing. 4. Interval development of Mild C4-C5 kyphosis.
== END 2024-01-06 09:04 | disposition home or self-care (01) ==
LOC: HO.XRAY 09:03
PROVIDERS: PCP Family Medicine; Visit Provider Family Medicine
DX: M54.2 Cervicalgia (principal); G89.29 Other chronic pain
CPT/HCPCS: 72050

== ENCOUNTER 2024-01-15 14:29 | Outpatient (AMB) | payer MEDICAID, SELFPAY ==
--- NOTE | 2024-01-15 14:35 | A.OFFVIS_ITS ---
Intake Vital Signs 01/15/24 14:35 Height 5 ft 2 in Handedness Ambidextrous Intake Visit Reasons: differential specialist- Trigger middle finger of left hand/ Confirmed Intake Note: Nicol is a 63 year old right hand dominant female who presents today as a new patient for a evaluation for her left middle trigger finger. Patient reports her finger keeps locking every day. She states it is worse in the morning/night. Patient reports that she can't make a full fist due to her middle finger locking. Allergies codeine [CODEINE] Allergy (Intermediate, Verified 01/15/24 14:38) VOMITTING milnacipran [From Savella] Allergy (Intermediate, Verified 01/15/24 14:38) Gastrointestinal Upset HPI differential specialist- Trigger middle finger of left hand/ Confirmed HPI Details 63-year-old right hand dominant female jo ann cazares presents in the office to day, as a new patient, for an evaluation of possible left middle finger trigger finger. The patient reports her finger locks daily. She states this is worse in the morning and at night. She claims she is unable to make a closed fist due to her middle digit locking. Patient has an allergy history, as follows: -Codeine; vomiting -Milnacipran; GI upset Patient is currently taking, as follows: -Bisacodyl 20 mg PO once -Calcium cabonate-vitamin D3 500 mg -3.1 25 mcg I tab PO BID -Conjugated estrogens 0.625 mg PO daily -Cyclobenzaprine 10 mg PO TID -Dicyclomine 10 mg PO TID -Etodolac 400 mg PO BID -Ibuprofen 800 mg PO BID -Levothyroxine 50 mcg PO daily -Lisinopril 10 mg PO daily -Loratadine 10 mg PO daily -Meloxicam 7.5 mg PO daily -Multivitamin 1 tab PO Daily -Cordova-3 fatty acid 1,000 mg PO BID -Omeprazole 20 mg PO BID -Ondansetron 4 mg PO Q8H -Polyethylene glycol 3350 238 grams PO o nce PRN -Pregabalin 150 mg PO daily -Red yeast rice 600 mg PO daily -Tolterodine ER 4 mg PO QPM Patient has a medical history, as follows: -History of colitis -Bowel habit changes -GERD (gastroesophageal reflux disease) -Hypothyroidism -Fibromyalgia [facility] Medical History (Updated 01/15/24 @ 15:26 by Bonita Sultana) History of colitis Bowel habit changes GERD (gastroesophageal reflux disease) Thyroid disease Fibromyalgia Joint pain Irritable bowel syndrome Stress incontinence HTN (hypertension) Surgical History Hx of ovarian cystectomy Hx of repair of left rotator cuff Hx of tubal ligation Hx of hysterectomy History of bladder surgery History of esophagogastroduodenoscopy (EGD) H/O colonoscopy Social History Household Members Other:: lives with BF Alcohol intake: never Patient Tobacco Use Status: Never used Tobacco Substance Use Type: Marijuana Current occupational status: employed Current occupation: [employer] Review of Systems Const All systems reviewed & are unremarkable except as noted in HPI and below Physical Exam Const General: cooperative and no acute distress Orientation/consciousness: patient oriented x3 Resp Effort & Inspection: normal respiratory effort and able to speak in complete sentences Cardio Peripheral pulses: Peripheral pulses 2+ throughout Skin General skin exam: no rashes or lesions noted Neuro General: patient oriented x3 Extrem Other: Left hand middle finger: Tenderness to palpation over A1c jatinder with active locking and catching. Sensation intact. Capillary refill is brisk. Remainder of hand exam was within normal limits. Assessment & Plan Assessment & Plan (1) Trigger finger, left middle finger: Code(s): M65.332 - Trigger finger, left middle finger Plan Ms. Ha is a 63-year-old right hand dominant female who presents in the office today, as a new patient, for an evaluation of possible left middle finger trigger finger. The patient reports her finger locks daily. She states this is worse in the morning and at night. She claims she is unable to make a closed fist due to her middle digit locking. Patient has an allergy history, as follows: -Codeine; vomiting -Milnacipran; GI upset Patient is currently taking, as follows: -Bisacodyl 20 mg PO once -Calcium cabonate-vitamin D3 500 mg -3.125 mcg I tab PO BID -Conjugated estrogens 0.625 mg PO daily -Cyclobenzaprine 10 mg PO TID -Dicyclomine 10 mg PO TID -Etodolac 400 mg PO BID -Ibuprofen 800 mg PO BID -Levothyroxine 50 mcg PO daily -Lisinopril 10 mg PO daily -Loratadine 10 mg PO daily -Meloxicam 7.5 mg PO daily -Multivitamin 1 tab PO Daily -Cordova-3 fatty acid 1,000 mg PO BID -Omeprazole 20 mg PO BID -Ondansetron 4 mg PO Q8H -Polyethylene glycol 3350 238 grams PO once PRN -Pregabalin 150 mg PO daily -Red yeast rice 600 mg PO daily -Tolterodine ER 4 mg PO QPM Patient has a medical history, as follows: -History of colitis -Bowel habit changes -GERD (gastroesophageal reflux disease) -Hypothyroidism -Fibromyalgia The patient would like to move forward with the left middle finger, trigger finger release. A booking sheet has been given to the surgical product sales consultant. They will reach out to the patient with available days and times. I discussed in detail the procedure and what to expect pre and post operatively. We discussed the risks, benefits and alternatives to the surgery as well as the rehabilitation course. The risks; which include, but are not limited to infection, bleeding, nerve injury, ongoing pain, swelling, and stiffness, perioperative risk of injury to bones and soft tissues, and blood clots. I have answered all questions and with their understanding they have consented to move forward with a left middle finger trigger finger release to be performed by Dr. Renetta Cage. Follow up will be at the post operative appointment, or sooner if needed. Patient Instructions: Scribed by Bonita Sultana biomedical specialist, for Jackelyn Dobbins PA-C on 01/15/2024 at 2:30 pm, EST. Coding Level of Care Code New Pt Level 4 (52562) Diagnoses Trigger finger, left middle finger M65.332
== END 2024-01-15 14:57 | disposition home or self-care (01) ==
PROVIDERS: PCP Student in an Organized Health Care Education/Training Program; Visit Provider Physician Assistant
DX: M65.332 Trigger finger, left middle finger (principal)
CPT/HCPCS: 99204

== ENCOUNTER → 2024-01-15 14:29 | Outpatient (BNVA) | payer MEDICAID, SELFPAY | PROVIDERS: PCP Student in an Organized Health Care Education/Training Program; Visit Provider Physician Assistant | DX: M65.332 Trigger finger, left middle finger (principal) | CPT/HCPCS: 99212 ==

== ENCOUNTER 2024-03-09 09:38 | Outpatient (REF) | payer MEDICAID, SELFPAY ==
[2024-03-09 14:43] LABS: MANUAL DIFF FLAG NO
[2024-03-09 14:56] LABS: Basophils Absolute Auto 0.1 X10*3/uL (0.0-0.2); Basophils Percent Auto 1.4 % (0-2); Eosinophils Absolute Auto 0.2 X10*3/uL (0.0-0.4); Eosinophils Percent Auto 2.8 % (0-4); Hematocrit 32.2 % (37.0-47.0); Hemoglobin 10.8 g/dl (12.0-16.0); Imm Gran Abs Auto 0.03 X10*3/uL (0.00-0.03); Imm Gran Pct Auto 0.4 % (0.0-0.4); Lymphocytes Absolute Auto 3.4 X10*3/uL (1.2-4.9); Lymphocytes Percent Auto 43.1 % (20-40); Mean Corpuscular HGB Conc 33.5 g/dl (31.0-35.0); Mean Corpuscular Hemoglobin 29.9 pg (27.0-33.0); Mean Corpuscular Volume 89.2 fL (80.0-98.0); Mean Platelet Volume 11.4 fL (9.4-12.3); Monocytes Absolute Auto 0.5 X10*3/uL (0.1-1.2); Monocytes Percent Auto 5.9 % (2-11); Neutrophils Absolute Auto 3.7 x10*3/uL (2.0-8.3); Neutrophils Percent Auto 46.4 % (45-73); Platelet Count 363 X10*3/uL (160-400); Red Blood Count 3.61 X10*6/uL (4.20-5.50); Red Cell Distribution Width 14.5 % (11.0-16.0); White Blood Count 7.9 X10*3/uL (4.8-10.8)
[2024-03-09 15:35] LABS: Alanine Aminotransferase 17 U/L (0-31); Albumin Level 3.9 g/dL (3.5-5.0); Alkaline Phosphatase 45 U/L (39-117); Anion Gap 12 (12-20); Aspartate Amino Transferase 22 U/L (5-31); Bilirubin Total 0.2 mg/dL (0.0-1.0); Blood Urea Nitrogen 34 mg/dL (9-16); Calcium 9.3 mg/dL (8.4-10.2); Carbon Dioxide 27 mmol/L (22-29); Chloride 104 mmol/L (96-108); Cholesterol 200 mg/dL (<200); Estimated Glomerular Filt Rate 44; Glucose Random 77 mg/dL (60-115); HDL Cholesterol 55 mg/dL (>40); Iron 98 mcg/dL (30-160); LDL Cholesterol Calculated 97 mg/dL (<100); Percent Iron Saturation 20 % (15-50); Potassium 4.6 mmol/L (3.3-5.1); Sodium 138 mmol/L (135-145); Total Iron Binding Capacity 486 mcg/dL (228-428); Total Protein 6.9 g/dL (6.5-8.0); Triglycerides 241 mg/dL (<150); Unsaturated Iron Binding 388 ug/dL
[2024-03-09 15:50] LABS: Ferritin 84 ng/mL (10-250); TSH reflex Free T4 4.47 uIU/mL (0.32-4.0)
[2024-03-09 16:35] LABS: Free T4 (Free Thyroxine) 0.97 ng/dL (0.71-1.85)
== END 2024-03-09 09:39 | disposition home or self-care (01) ==
LOC: HO.CHCLDS 09:38
PROVIDERS: Visit Provider Family Medicine
DX: I10 Essential (primary) hypertension (principal); E78.5 Hyperlipidemia, unspecified; D64.9 Anemia, unspecified; Z13.29 Encounter for screening for other suspected endocrine disorder
CPT/HCPCS: 36415; 80053; 80061; 82728; 83540; 84439; 84443; 85025

== ENCOUNTER 2024-04-07 13:33 | Outpatient (REF) | payer MEDICARE, MEDICAID, SELFPAY ==
[2024-04-07 14:14] LABS: MANUAL DIFF FLAG NO
[2024-04-07 14:24] LABS: Basophils Absolute Auto 0.1 X10*3/uL (0.0-0.2); Basophils Percent Auto 0.9 % (0-2); Eosinophils Absolute Auto 0.2 X10*3/uL (0.0-0.4); Eosinophils Percent Auto 2.1 % (0-4); Hematocrit 28.5 % (37.0-47.0); Hemoglobin 9.7 g/dl (12.0-16.0); Imm Gran Abs Auto 0.02 X10*3/uL (0.00-0.03); Imm Gran Pct Auto 0.3 % (0.0-0.4); Lymphocytes Absolute Auto 3.5 X10*3/uL (1.2-4.9); Lymphocytes Percent Auto 44.5 % (20-40); Mean Corpuscular Hemoglobin 30.2 pg (27.0-33.0); Mean Corpuscular Volume 88.8 fL (80.0-98.0); Mean Platelet Volume 11.4 fL (9.4-12.3); Monocytes Absolute Auto 0.6 X10*3/uL (0.1-1.2); Monocytes Percent Auto 7.3 % (2-11); Neutrophils Absolute Auto 3.5 x10*3/uL (2.0-8.3); Neutrophils Percent Auto 44.9 % (45-73); Platelet Count 363 X10*3/uL (160-400); Red Blood Count 3.21 X10*6/uL (4.20-5.50); Red Cell Distribution Width 14.6 % (11.0-16.0); White Blood Count 7.8 X10*3/uL (4.8-10.8)
[2024-04-07 15:07] LABS: Alanine Aminotransferase 19 U/L (0-31); Albumin Level 4.1 g/dL (3.5-5.0); Alkaline Phosphatase 60 U/L (39-117); Anion Gap 15 (12-20); Aspartate Amino Transferase 23 U/L (5-31); Bilirubin Total 0.2 mg/dL (0.0-1.0); Blood Urea Nitrogen 45 mg/dL (9-16); Calcium 9.5 mg/dL (8.4-10.2); Carbon Dioxide 23 mmol/L (22-29); Chloride 105 mmol/L (96-108); Estimated Glomerular Filt Rate 36; Glucose Random 87 mg/dL (60-115); Iron 69 mcg/dL (30-160); Magnesium 1.7 mg/dL (1.6-2.6); Percent Iron Saturation 15 % (15-50); Potassium 4.1 mmol/L (3.3-5.1); Sodium 139 mmol/L (135-145); Total Iron Binding Capacity 463 mcg/dL (228-428); Unsaturated Iron Binding 394 ug/dL
[2024-04-07 15:26] LABS: Ferritin 87 ng/mL (10-250); TSH reflex Free T4 1.51 uIU/mL (0.32-4.0)
[2024-04-07 15:34] LABS: Vitamin B12 1184 pg/mL (200-900)
== END 2024-04-07 13:34 | disposition home or self-care (01) ==
LOC: HO.CHCLDS 13:33
PROVIDERS: Visit Provider Family Medicine
DX: R25.2 Cramp and spasm (principal); R79.9 Abnormal finding of blood chemistry, unspecified
CPT/HCPCS: 36415; 80053; 82550; 82607; 82728; 82746; 83540; 83735; 84443; 85025

== ENCOUNTER 2024-04-24 09:20 | Outpatient (REF) | payer MEDICARE, MEDICAID, SELFPAY ==
[2024-04-24 14:46] LABS: Anion Gap 14 (12-20); Blood Urea Nitrogen 39 mg/dL (9-16); Calcium 9.3 mg/dL (8.4-10.2); Carbon Dioxide 25 mmol/L (22-29); Chloride 104 mmol/L (96-108); Estimated Glomerular Filt Rate 40; Glucose Random 87 mg/dL (60-115); Potassium 4.2 mmol/L (3.3-5.1); Sodium 139 mmol/L (135-145)
== END 2024-04-24 09:21 | disposition home or self-care (01) ==
LOC: HO.CHCLDS 09:20
PROVIDERS: Visit Provider Family Medicine
DX: R89.9 Unspecified abnormal finding in specimens from other organs, systems and tissues (principal)
CPT/HCPCS: 36415; 80048; 82550

== ENCOUNTER 2024-05-05 15:06 | Outpatient (REF) | payer MEDICARE, MEDICAID, SELFPAY ==
[2024-05-06 03:22] LABS: Syphilis Screen Nonreactive (Nonreactive)
[2024-05-06 03:37] LABS: HIV AB/AG Nonreactive (Nonreactive); HIV Num 1 0.05 S/CO (0.00-0.99)
[2024-05-06 21:22] LABS: Lyme Abs Screen <0.90 index
== END 2024-05-05 15:07 | disposition home or self-care (01) ==
LOC: HO.CHCLDS 15:06
PROVIDERS: Visit Provider Family Medicine
DX: Z11.4 Encounter for screening for human immunodeficiency virus [HIV] (principal); R41.3 Other amnesia; F03.90 Unspecified dementia, unspecified severity, without behavioral disturbance, psychotic disturbance, mood disturbance, and anxiety; N17.9 Acute kidney failure, unspecified
CPT/HCPCS: 36415; 86617; 86618; 86780; 87389

== ENCOUNTER 2024-05-14 08:13 | Outpatient (REF) | payer MEDICAID, SELFPAY | END 2024-05-14 08:14 | disposition home or self-care (01) | LOC: HO.CHCLNP 08:13 | PROVIDERS: Visit Provider Family Medicine | DX: K21.9 Gastro-esophageal reflux disease without esophagitis (principal) | CPT/HCPCS: 87338 ==

== ENCOUNTER 2024-07-15 18:08 | Outpatient (REF) | payer MEDICARE, SELFPAY ==
--- NOTE | ~2024-07-15 | MR_ITS ---
EXAMINATION: MR BRAIN WITHOUT CONTRAST CLINICAL INFORMATION: Mild cognitive disease. COMPARISON: No relevant prior imaging. TECHNIQUE: MRI of the brain was obtained using routine sequences without contrast. FINDINGS: There is no intracranial mass effect or midline shift. No abnormal extra-axial collection. Lateral and third ventricles are normal. No hydrocephalus. Midline structures including the cervicomedullary junction are normal. No acute bone marrow signal changes. There is no acute territorial infarct. No pathological magnetic susceptibility artifact. Intracranial vascular flow voids are maintained. There is no mastoid middle ear effusion. No acute paranasal sinus disease. Globes and orbits are symmetric. MR/MR head/brain wo con IMPRESSION: Normal brain MRI. Electronically signed by: Gaudencio Rodriguez MD 07/28/2024 12:38 PM EDT
== END 2024-07-15 18:09 | disposition home or self-care (01) ==
LOC: HO.MRI 18:08
PROVIDERS: PCP Family Medicine; Visit Provider Family Medicine
DX: R41.3 Other amnesia (principal)
CPT/HCPCS: 70551

== ENCOUNTER 2024-11-07 14:03 | Outpatient (REF) | payer MEDICARE, SELFPAY | END 2024-11-07 14:04 | disposition home or self-care (01) | LOC: HO.HHCLNP 14:03 | PROVIDERS: Visit Provider Internal Medicine Geriatric Medicine | DX: J02.9 Acute pharyngitis, unspecified (principal) | CPT/HCPCS: 87070 ==

== ENCOUNTER 2024-11-08 02:34 | Emergency (ER) | payer OTHER, SELFPAY ==
[2024-11-08 02:45] VITALS: BP 123/39; PULSE 65; RESP 18; TEMP 35.9; O2SAT 97; BMI 27.4
[2024-11-08] MEDS: diphenhydrAMINE HCL 50 MG/ML VIAL IVPUSH (03:02)
[2024-11-08] MEDS: Famotidine/PF 20 MG/2 ML VIAL IVPUSH (03:02)
[2024-11-08] MEDS: dexAMETHasone sod phosphate 10 MG/ML VIAL IVPUSH (03:02)
--- NOTE | 2024-11-08 04:27 | ED.ALLEREA ---
HPI - Allergic Reaction General Chief complaint: Allergic Reaction Stated complaint: allergic reaction Time Seen by Provider: 11/08/24 02:54 Source: patient Mode of arrival: ambulatory Limitations: no limitations History of Present Illness ED Provider: HPI narrative: Patient with no history of allergic reactions in the past he is on lisinopril for blood pressure control started on amoxicillin which he has taken before for sore throat noticed swelling of the tongue without any rash or itching no lip swelling no difficulty in breathing Related Data Home Medications ?Medication ?Instructions ?Recorded ?Confirmed calcium 500 mg (as 1 tab PO BID 10/19/20 04/02/22 carbonate)-vitamin D3 3.125 mcg (125 unit) tablet conjugated estrogens 0.625 mg 0.625 mg PO DAILY 10/19/20 04/02/22 tablet (Premarin) cyclobenzaprine 10 mg tablet 10 mg PO TID 10/19/20 04/02/22 etodolac 400 mg tablet (Lodine) 400 mg PO BID 10/19/20 04/02/22 ibuprofen 800 mg tablet 800 mg PO BID 10/19/20 04/02/22 levothyroxine 50 mcg tablet 50 mcg PO DAILY 10/19/20 04/02/22 lisinopril 10 mg tablet 10 mg PO DAILY 10/19/20 04/02/22 loratadine 10 mg tablet 10 mg PO DAILY 10/19/20 04/02/22 multivitamin 1 tab PO DAILY 10/19/20 04/02/22 omega-3 fatty acids 1,000 mg 1,000 mg PO BID 10/19/20 04/02/22 capsule omeprazole 20 mg capsule,delayed 20 mg PO BID 10/19/20 04/02/22 release pregabalin 150 mg capsule (Lyrica) 150 mg PO TID 10/19/20 04/02/22 red yeast rice 600 mg tablet 600 mg PO DAILY 10/19/20 04/02/22 tolterodine 4 mg capsule,extended 4 mg PO QPM 10/19/20 04/02/22 release 24 hr (Detrol LA) meloxicam 7.5 mg tablet 7.5 mg PO DAILY 06/06/22 Previous Rx's ?Medication ?Instructions ?Recorded ondansetron 4 mg disintegrating 4 mg PO Q8H 3 days #9 tabs 10/28/22 tablet bisacodyl 5 mg tablet,delayed 20 mg (4 x 5 mg) PO ONCE 08/12/23 release (Dulcolax (bisacodyl)) colonoscopy prep 1 day #4 tabs dicyclomine 10 mg capsule 10 mg PO TID 30 days #90 caps 08/12/23 polyethylene glycol 3350 17 238 g PO ONCE PRN laxative effect 08/12/23 gram/dose oral powder (Miralax) 1 day #238 grams amlodipine 2.5 mg tablet 2.5 mg PO DAILY #30 tabs 11/08/24 Allergies Allergy/AdvReac Type Severity Reaction Status Date / Time codeine [CODEINE] Allergy Intermediate VOMITTING Verified 11/08/24 02:48 milnacipran [From Savella] Allergy Intermediate Gastrointestinal Verified 11/08/24 02:48 Upset Review of Systems Review of Systems: Yes all other systems are reviewed and are negative [facility] Past Medical History Medical History History of colitis Bowel habit changes GERD (gastroesophageal reflux disease) Thyroid disease Fibromyalgia Joint pain Irritable bowel syndrome Stress incontinence HTN (hypertension) Surgical History Hx of ovarian cystectomy Hx of repair of left rotator cuff Hx of tubal ligation Hx of hysterectomy History of bladder surgery History of esophagogastroduodenoscopy (EGD) H/O colonoscopy Social History Social History Household Members Other:: lives with Alcohol intake: never Patient Tobacco Use Status: Never used Tobacco Smoked in Last 30 Days: No Use of substances other than those prescribed or required for medical reasons: No Substance Use Type: Marijuana Advance Directives: No Do you have a plan to hurt others: No Plan Current occupational status: employed Current occupation: [employer] Physical Exam ED Vital Signs: Vital Signs - 24 hr 11/08/24 07:11 Temperature 97.8 F Pulse Rate 68 Respiratory Rate 18 Blood Pressure 127/77 Pulse Oximetry 98 Oxygen Delivery Method Room Air BMI result Body Mass Index 27.4 Appearance: Alert. Oriented X3. No acute distress. Eyes: No pallor or icterus ENT: Large tongue no stridor uvula normal lungs clear Neck: Normal inspection. Neck supple. CVS: Normal heart rate and rhythm. Pulses normal. Respiratory: No respiratory distress. Equal air entry bilateral, no wheezing/rales/rhonchi Abdomen: Soft and nontender. Skin: Skin warm and dry. Normal skin color. Normal skin turgor. Extremities: No lower extremity edema. No calf tenderness Neuro: Oriented X 3. No motor deficit. Medications Administered Discontinued Medications Generic Name Dose Route Start Last Admin Trade Name Guy PRN Reason Stop Dose Admin Dexamethasone Sodium Phosphate 10 mg 11/08/24 02:54 11/08/24 03:02 Dexamethasone Sod Phosphate 10 Mg/Ml Vial IVPUSH 11/08/24 02:55 10 mg ONCE ONE Administration Diphenhydramine HCl 50 mg 11/08/24 02:54 11/08/24 03:02 Diphenhydramine Hcl 50 Mg/Ml Vial IVPUSH 11/08/24 02:55 50 mg ONCE ONE Administration Famotidine 20 mg 11/08/24 02:55 11/08/24 03:02 Famotidine/Pf 20 Mg/2 Ml Vial IVPUSH 11/08/24 02:56 20 mg ONCE ONE Administration Medical Decision Making Medical Decision Making [facility] Narrative: Patient with localized angioedema of the tongue likely from base unable to lisinopril which she been taking patient was given prophylactic Benadryl on steroids felt better swelling has decreased not progress to lips or uvula breathing normally patient advised to stop lisinopril Stephen ganesh for blood pressure control Differential Diagnosis Differential Diagnoses: The differential diagnosis associated with the presentation includes Discharge Plan Discharge Clinical Impression: Angioedema Patient Disposition: Home, Self-Care Instructions: Angioedema (ED) Additional Instructions: Stop taking lisinopril you have allergic reaction to lisinopril Continue other medications Start taking amlodipine 2.5 mg daily for blood pressure control Follow up with your PCP Report to the ER if worsening of the swelling of the tongue or shortness a breath Prescriptions: New amlodipine 2.5 mg tablet 2.5 mg PO DAILY Qty: 30 0RF No Action multivitamin Tablet 1 tab PO DAILY cyclobenzaprine 10 mg Tablet 10 mg PO TID omega-3 fatty acids 1,000 mg Capsule 1,000 mg PO BID ibuprofen 800 mg Tablet 800 mg PO BID tolterodine [Detrol LA] 4 mg Capsule,Extended Release 24hr 4 mg PO QPM levothyroxine 50 mcg Tablet 50 mcg PO DAILY lisinopril 10 mg Tablet 10 mg PO DAILY Premarin 0.625 mg Tablet 0.625 mg PO DAILY omeprazole 20 mg Capsule,Delayed Release(Dr/Ec) 20 mg PO BID etodolac [Lodine] 400 mg Tablet 400 mg PO BID loratadine 10 mg Tablet 10 mg PO DAILY pregabalin [Lyrica] 150 mg Capsule 150 mg PO TID calcium carbonate-vitamin D3 [Calcium 500 + D (D3)] 500 mg(1,250mg) -125 unit Tablet 1 tab PO BID red yeast rice 600 mg Tablet 600 mg PO DAILY ondansetron 4 mg tablet,disintegrating 4 mg PO Q8H 3 Days Qty: 9 0RF meloxicam 7.5 mg tablet 7.5 mg PO DAILY dicyclomine 10 mg capsule 10 mg PO TID 30 Days Qty: 90 2RF bisacodyl [Dulcolax (bisacodyl)] 5 mg tablet,delayed release (DR/EC) 20 mg PO ONCE 1 Days Qty: 4 0RF Rx Instructions: Take 4 tablets by mouth at 12:00pm the day before your procedure. polyethylene glycol 3350 [Miralax] 17 gram/dose powder 238 g PO ONCE PRN (Reason: laxative effect) 1 Days Qty: 238 0RF Rx Instructions: Take as directed by mouth the day before your procedure. Interventions: ED Discharge Assessment Last Done: 11/08/24 07:11 Discharge Date/Time: 11/08/24 07:12 Print Language: Northern Irish
[2024-11-08 07:11] VITALS: BP 127/77; PULSE 68; RESP 18; TEMP 36.6; O2SAT 98
== END 2024-11-08 07:12 | disposition home or self-care (01) ==
PROVIDERS: Emergency Provider Internal Medicine; PCP Family Medicine
DX: J02.9 Acute pharyngitis, unspecified (principal); T36.0X5A Adverse effect of penicillins, initial encounter; Y92.9 Unspecified place or not applicable; Z79.899 Other long term (current) drug therapy
CPT/HCPCS: 96374; 96375; 99284; J1100; J1200

== ENCOUNTER 2024-12-07 08:33 | Outpatient (REF) | payer OTHER, SELFPAY ==
--- NOTE | ~2024-12-07 | MM_ITS ---
EXAMINATION: MM SCREENING DIGITAL BREAST TOMOSYNTHESIS, BILATERAL CLINICAL INFORMATION: Screening. Asymptomatic. COMPARISON: Mammography: Comparison is made with available priors TECHNIQUE: Digital breast mammography with tomosynthesis is performed in both the craniocaudal and mediolateral oblique views along with computer-aided detection (CAD). FINDINGS: There are scattered areas of fibroglandular density (ACR BI-RADS breast composition Category b). There are no significant masses, abnormal calcifications, or other abnormalities. MM/MM tomosynthesis screening BI IMPRESSION: No mammographic evidence of malignancy. ASSESSMENT: BI-RADS BI-RADS 1 - Negative RECOMMENDATION: Routine annual mammography screening. 1 year F/U This examination should not preclude the clinical evaluation of a suspicious palpable abnormality. This patient's information was entered into a reminder system with a target due date for their next mammogram. Electronically signed by: Elenita Fortune DO 12/13/2024 05:51 PM JULIOCESAR
== END 2024-12-07 08:34 | disposition home or self-care (01) ==
LOC: HO.MAMMO 08:33
PROVIDERS: PCP Family Medicine; Visit Provider Family Medicine
DX: Z12.31 Encounter for screening mammogram for malignant neoplasm of breast (principal)
CPT/HCPCS: 77063; 77067

== ENCOUNTER → 2024-12-07 08:45 | Outpatient (BNV) | payer OTHER, SELFPAY | PROVIDERS: PCP Family Medicine; Visit Provider Internal Medicine | DX: Z12.31 Encounter for screening mammogram for malignant neoplasm of breast (principal) | CPT/HCPCS: 77063; 77067 ==

== ENCOUNTER 2025-04-30 09:33 | Outpatient (REF) | payer OTHER, SELFPAY ==
--- OUTSIDE RECORDS SUMMARY | 2025-04-30 09:53 | XMS_ITS | Encounter Summary ---
Author Organization [employer] Address [address] [place] [address] Care Team Providers Care Yard Motor Operator Name Role Phone Perlita Dill MD Primary Care Provider [phone] Katelyn Porter MD Primary Care Provider [phone] Encounter Details Date Type Department Care Team (Latest Contact Info) Description 10/03/2022 Abstract [facility] CONVERSIONS Dental, Provider, DDS Social History Tobacco Use Types Packs/Day Years Used Date Smoking Tobacco: Never Assessed Comments Unknown Sex and Gender Information Value Date Recorded Sex Assigned at Female 10/01/2022 10:21 AM EDT Legal Sex Female 10:21 AM EDT Gender Identity Female 10/01/2022 10:21 AM EDT Sexual Orientation Straight 10/01/2022 10 :21 AM EDT documented as of this encounter Plan of Treatment Upcoming Encounters Date Type Department Care Team (Late st Contact Info) Description 05/17/2025 9:30 AM EDT Clinical Support [facility] [address] [place] [address] documented as of this encounter Visit Diagnoses Not on filedocumented in this encounter Care Teams Yard Motor Operator Relationship Specialty Start Date End Date Perlita Dill MD [address], [place] [id number] PCP - General Family Medicine 04/01/13 02/07/23 Katelyn Porter MD [address], [place] [phone] PCP - General Family Medicine 02/08/23 [facility] Surgeon Orthopaedic Surgery 01/15/24 documented as of this encounter
[2025-04-30 14:57] LABS: MANUAL DIFF FLAG NO
[2025-04-30 15:03] LABS: Basophils Absolute Auto 0.1 X10*3/uL (0.0-0.2); Basophils Percent Auto 1.2 % (0-2); Eosinophils Absolute Auto 0.2 X10*3/uL (0.0-0.4); Eosinophils Percent Auto 2.8 % (0-4); Hematocrit 34.1 % (37.0-47.0); Hemoglobin 11.3 g/dl (12.0-16.0); Imm Gran Abs Auto 0.02 X10*3/uL (0.00-0.03); Imm Gran Pct Auto 0.2 % (0.0-0.4); Lymphocytes Absolute Auto 3.1 X10*3/uL (1.2-4.9); Lymphocytes Percent Auto 37.5 % (20-40); Mean Corpuscular HGB Conc 33.1 g/dl (31.0-35.0); Mean Corpuscular Hemoglobin 28.6 pg (27.0-33.0); Mean Corpuscular Volume 86.3 fL (80.0-98.0); Mean Platelet Volume 11.3 fL (9.4-12.3); Monocytes Absolute Auto 0.7 X10*3/uL (0.1-1.2); Neutrophils Absolute Auto 4.1 x10*3/uL (2.0-8.3); Neutrophils Percent Auto 50.3 % (45-73); Platelet Count 344 X10*3/uL (160-400); Red Blood Count 3.95 X10*6/uL (4.20-5.50); Red Cell Distribution Width 15.2 % (11.0-16.0); White Blood Count 8.2 X10*3/uL (4.8-10.8)
[2025-04-30 16:11] LABS: Alanine Aminotransferase 19 U/L (0-31); Albumin Level 4.1 g/dL (3.5-5.0); Anion Gap 11 (12-20); Aspartate Amino Transferase 29 U/L (5-31); Bilirubin Total 0.3 mg/dL (0.0-1.0); Blood Urea Nitrogen 28 mg/dL (9-16); Calcium 9.6 mg/dL (8.4-10.2); Carbon Dioxide 26 mmol/L (22-29); Chloride 103 mmol/L (96-108); Cholesterol 160 mg/dL (<200); Estimated Glomerular Filt Rate 53; Ferritin 41 ng/mL (10-250); Glucose Random 78 mg/dL (60-115); HDL Cholesterol 49 mg/dL (>40); Iron 99 mcg/dL (30-160); LDL Cholesterol Calculated 53 mg/dL (<100); Percent Iron Saturation 22 % (15-50); Potassium 4.1 mmol/L (3.3-5.1); Sodium 136 mmol/L (135-145); TSH reflex Free T4 1.95 uIU/mL (0.32-4.0); Total Iron Binding Capacity 450 mcg/dL (228-428); Total Protein 6.8 g/dL (6.5-8.0); Triglycerides 291 mg/dL (<150); Unsaturated Iron Binding 351 ug/dL
[2025-04-30 17:08] LABS: Alkaline Phosphatase 58 U/L (39-117)
== END 2025-04-30 09:34 | disposition home or self-care (01) ==
LOC: HO.CHCLDS 09:33
PROVIDERS: Visit Provider Family Medicine
DX: D64.9 Anemia, unspecified (principal); E03.9 Hypothyroidism, unspecified
CPT/HCPCS: 36415; 80053; 80061; 82728; 83540; 84443; 85025

== ENCOUNTER 2025-09-06 11:53 | Outpatient (AMB) | payer OTHER, SELFPAY ==
--- NOTE | 2025-09-06 11:58 | A.OFFVIS_ITS ---
Intake Visit Reasons: Memory, Fm, RLS Allergies codeine (CODEINE) Allergy (Intermediate, Verified 09/06/25 12:04) VOMITTING milnacipran (From Savella) Allergy (Intermediate, Verified 09/06/25 12:04) Gastrointestinal Upset Medication List - Last Reconciled 09/06/25 by Itzel Bhandari CNP albuterol sulfate 90 mcg/actuation (Ventolin HFA) 2 puffs inhalation Q4H PRN amlodipine 5 mg PO DAILY bisacodyl (Dulcolax (bisacodyl)) 20 mg (4 x 5 mg) PO ONCE 1 day calcium carbonate-vitamin D3 500 mg-3.125 mcg (125 unit) 1 tab PO BID conjugated estrogens (Premarin) 0.625 mg PO DAILY diclofenac potassium 50 mg PO TID dicyclomine 10 mg PO TID 30 days famotidine 40 mg PO BEDTIME hydrochlorothiazide 25 mg PO QAM levothyroxine 88 mcg PO QAM omega-3 fatty acids 1,000 mg PO BID ondansetron 4 mg PO Q8H 3 days pantoprazole 40 mg PO BID polyethylene glycol 3350 (Miralax) 238 grams PO ONCE PRN 1 day pramipexole 0.5 mg PO QPM 90 days pregabalin (Lyrica) 150 mg PO TID red yeast rice 600 mg PO DAILY rosuvastatin 40 mg PO QAM tolterodine ER (Detrol LA) 4 mg PO QPM vitamin E (dl, acetate) 180 mg PO DAILY zolpidem 10 mg PO BEDTIME 30 days HPI Comments Details: 65-year-old woman with short term memory loss beginning around spring 2023, insomnia for over 40+ years, fibromyalgia, and RLS. She was still having RLS symptoms, mainly occurring between 5-9pm, leading to discomfort when trying to rest at night. She had urge to move legs and felt better if she got up and walked around. Initially, pramipexole seemed to help but not so much anymore. She was taking medication around 7-7:30pm. Sleep was a little better with zolpidem, but she still had trouble sleeping through the night. She apparently had sleep study, but results were not available at this time. Memory was about the same. She also reported having some menopausal symptoms, notably more hot flashes, since attempting to reduce dose of hormone therapy. She retired from [employer] running [employer]. Hx of ibromualgia and low back pain with whole lower back and left hip pain, hurts everywhere. Wakes with hip pains and sore feet with pins and needles in the feet. All joints hurt, muscle sore with trigger points. Negative workup. Side effects with most drugs. Long history of chronic pain involving her back, neck, shoulders as well as pain in the hands, forearms, hips, knees, ankles, with generalized pain not relieved by multiple drugs in the past including gabapentin and amitriptyline. Lyrica 150 mg tid worked but it is not covered by insurance coverage . She has not tried Cymbalta in the past. She has seen multiple rheumatologists and was diagnosed with fibromyalgia most recently. Prednisone produced 50% relief but intolerable side effects. Stopped after 11 days. Pain is back to baseline pain. Will not take it again. Gets 2 hrs of sleep at night. [facility] Medical History (Updated 09/06/25 @ 12:03 by Itzel Bhandari CNP) History of colitis Bowel habit changes GERD (gastroesophageal reflux disease) Thyroid disease Fibromyalgia Joint pain Irritable bowel syndrome Stress incontinence HTN (hypertension) Surgical History Hx of ovarian cystectomy Hx of repair of left rotator cuff Hx of tubal ligation Hx of hysterectomy History of bladder surgery History of esophagogastroduodenoscopy (EGD) H/O colonoscopy Social History Household Members Other:: lives with BF Alcohol intake: never Patient Tobacco Use Status: Never used Tobacco Substance Use Type: Marijuana Current occupational status: employed Current occupation: [employer] Review of Systems Const Denies chills, Denies daytime sleepiness, Reports difficulty sleeping, Denies fatigue, Denies fever(s), Denies frequent falls, Denies headache(s), Denies increased appetite, Denies poor appetite, Denies snoring, Denies weakness, Denies weight gain and Denies weight loss Eyes Denies loss of vision ENT Denies vertigo, Denies dizziness, Denies headache(s) and Reports neck pain Card Denies chest pain at rest, Denies chest pain with activity, Denies syncope, Denies leg edema, Denies palpitations, Denies dyspnea and Denies dyspnea on exertion Resp Denies cough, Denies dyspnea, Denies dyspnea on exertion and Denies snoring GI Denies abdominal pain, Denies constipation, Denies heartburn, Denies diarrhea and Denies nausea Denies urinary frequency, Denies urinary incontinence and Denies urinary urgency Musc Denies abnormal gait, Reports back pain, Reports myalgias, Reports arthralgias, Reports neck pain, Reports numbness and Reports tingling Neuro Denies abnormal gait, Denies vertigo, Denies dizziness, Denies syncope, Denies frequent falls, Denies headache(s), Denies lack of coordination, Denies loss of vision, Denies memory loss, Reports numbness, Denies Other visual disturbances, Denies restless legs, Denies seizure-like activity, Reports tingling, Denies paresthesias, Denies tremor(s) and Denies weakness Psych Reports anxiety, Reports depression, Denies auditory hallucinations, Denies memory loss and Denies visual hallucinations Endo Denies fatigue and Denies palpitations Physical Exam Const Other: General Appearance:? normal, in no acute distress. Heart:? S1, S2 normal, no murmurs. Lungs:? clear anteriorly and posteriorly. Musculoskeletal:? normal. Extremities:? no edema. Psych:? alert, oriented, cognitive function intact, cooperative with exam. Neuro Other: Abnormal Neurological Findings:?none.? Mental Status: alert and oriented X 3. Normal attention, orientation, memory, and affect. Cranial Nerves: Pupils are equal, round, and reactive to light. External ocular muscles are intact. Visual frias are full, no ptosis. Face is symmetrical, no facial weakness or droop. Facial sensations are normal. Tongue protrudes in midline. Palate elevates symmetrically. Shoulder shrugging is normal Motor Examination: Normal muscle tone, bulk and strength. No atrophy or fasciculations. No drift of the extended upper extremities. DTR 2+. Plantars are flexor. Sensory Exam: Normal light touch, temperature, pinprick, vibration, and joint- position sensations. Rhomberg sign is absent. Coordination: No ataxia. No titubation. Gait Exam: Within normal limits. Cerebellar Signs: [id number] is okay. Extrapyramidal System: No tremor, rigidity with normal facial expressions. No bradykinesia. No bradyphrenia. Normal arm swing and posture. No propulsion or retropulsion. Speech: Normal. Results Reviewed Results Reviewed: EEG 05/2025: sleep and awake normal. Labs normal. Brain MRI 07/2024: Normal brain MRI. Assessment & Plan Assessment & Plan (1) Restless leg syndrome: Code(s): G25.81 - Restless legs syndrome Category: Medical Plan: Increase pramipexole 0.5mg 1 tablet in the evening. (2) Insomnia: Code(s): G47.00 - Insomnia, unspecified Category: Medical Qualifiers: Insomnia type: unspecified Qualified Code(s): G47.00 - Insomnia, unspecified Plan: Continue zolpidem 10mg 1 tablet at bedtime as needed for sleep. Will request sleep study results. (3) Memory change: Code(s): R41.3 - Other amnesia Category: Medical (4) Fibromyalgia: Code(s): M79.7 - Fibromyalgia Category: Medical Plan . Medications: New pramipexole 0.75 mg PO QPM 90 tabs 0RF 90 days Discontinued pramipexole Discontinued Reason: Doctor's Order 0.5 mg PO QPM 90 days 90 tabs 1RF Coding Level of Care Code Est Pt Level 4 (27770) Diagnoses Restless leg syndrome G25.81 Insomnia, unspecified type G47.00 Insomnia type: unspecified Memory change R41.3 Fibromyalgia M79.7
--- OUTSIDE RECORDS SUMMARY | 2025-09-06 14:25 | XMS_ITS | Encounter Summary ---
Author Organization [employer] Address [address] [facility] [address] [facility] [address] 7[address] [place] [address] Care Team Providers Care Rotary Drill Operator Helper Name Role Phone Katelyn Porter MD Primary Care Provider [phone] Reason for Visit * Reason Comments Med Refill Encounter Details Date Type Department Care Team ([facility] Contact Info) Description 05/07/2025 Refill [facility] CHC MED & PEDS [address] [place], [place] [id number] Katelyn Porter MD 505 [place] [address] Arthritis Social History Tobacco Use Types Packs/Day Years Used Date Smoking Tobacco: Former Cigarettes Passive Smoke Exposure: Never Smokeless Tobacco: Never Alcohol Use Standard Drinks/Week Comments Never 0 (1 standard drink = 0.6 oz pur e alcohol) Alcohol Answer Date Recorded Frequency of Alcohol Consumption Not on file 10/12/2024 Average Number of Drinks Not on file 024 Frequency of Binge Drinking Not on file 10/02 Score 0 10/12/2024 Depression Answer Date Recorded Patient Health Questionnaire-9 Score 7 10/12/2024 Patient Health Questionnaire-9 Score 7 10/12/2024 Last PHQ-9: Questionnaire Data Not on file 1 12/12/2023 Housing Stability Answer Date Recorded What is your housing situation today? I have amauri hutchinson 04/30/[address] you li ve. Do you have problems with any of the following? None of the above 04/30/2025 Food Insecurity Answer Date Recorded Within the past 12 months, y ou worried that your food would run out before you got money to buy more: Never True 04/30/2025 Within the past 12 months,th e food you bought just didn't last and you didn't have enough money to get more: Never True Transportation Answer Date Recorded In the past 12 months, has l ack of transportation kept you from medical appts, meetings, work or from getting things needed for daily living? No 04/30/2025 Utilities Answer Date Recorded In the past 12 months, has t he electric, gas, oil or water company threatened to shut off services in your home? No 04/30/2025 Depression Answer Date Recorded Patient Health Questionnaire-2 Score 0 10/12/2024 Internet Access Answer Date Recorded Internet Access Q1 Yes 04/30/2025 Internet Access Q2 Not on file 04/30/2025 Comments No Sex and Gender Information Value Date Recorded Sex Assigned at Female 10/01/2022 10:21 AM EDT Legal Sex Female 10:21 AM EDT Gender Identity Female 10/01/2022 10:21 AM EDT Sexual Orientation Straight 10/01/2022 10 :21 AM EDT documented as of this encounter Plan of Treatment Upcoming Encounters Date Type Department Care Team (Late st Contact Info) Description 09/27/2025 9:30 AM EDT Office Visit [facility] ADULT D[facility]AL [address] [place] [address] Cyrus Doty documented as of this encounter Visit Diagnoses Diagnosis Arthritis Unspecified arthropathy, site unspecified documented in this encounter Additional Health Concerns Assessment Noted Time PHQ-9 Depression Total Score: 7 10/12/20 24 3:30 PM EST documented as of this encounter Care Teams Rotary Drill Operator Helper Relationship Specialty Start Date End Date Katelyn Porter MD [address] [place] [id number] PCP - General Family Medicine 02/08/23 [facility] Surgeon Orthopaedic Surgery 01/15/24 documented as of this encounter
--- OUTSIDE RECORDS SUMMARY | 2025-09-06 14:25 | XMS_ITS | Encounter Summary ---
Author Organization [employer] Address [address] [facility] 7t [place] [address] Care Team Providers Care Lead Oracle Developer Name Role Phone Perlita Dill MD Primary Care Provider [phone] Katelyn Porter MD Primary Care Provider [phone] Encounter Details Date Type Department Care Team (Latest Contact Info) Description 08/14/2021 Abstract [facility] CONVERSIONS Dental, Provider, DDS Social History [...] Description 09/27/2025 9:30 AM EDT Office Visit [facility] CHC ADULT DENTAL [address] [place] [address] Cyrus Doty documented as of this encounter Visit Diagnoses Not on filedocumented in this encounter Care Teams Lead Oracle Developer Relationship Specialty Start Date End Date Perlita Dill MD [address] [place] [address] PCP - General Family Medicine 04/01/13 02/07/23 Katelyn Porter MD [address] [place] [address] [id number] PCP - General Family Medicine 02/08/23 [facility] Surgeon Orthopaedic Surgery 01/15/24 documented as of this encounter
--- OUTSIDE RECORDS SUMMARY | 2025-09-06 14:25 | XMS_ITS | Clinical Summary ---
Author Organization [facility] [address] [facility] Address [address] [place] [address] Phone Care Team Providers Care Gathering Machine Setter Name Role Phone Katelyn Porter MD Primary Care Provider [phone] Surgical History Surgery Date Site/Laterality Comments COLONOSCOPY 08/07 PROCEDURE: VA COLONOSCOPY STOMA DX INCLUDING COLLJ SPEC SPX; COMMENT: [employer] OVARIAN CYST REMOVAL PROCEDURE: VA OVARIAN CYSTECTOMY UNI/BI TUBAL LIGATION PROCEDURE: HISTORICAL TUBAL LIGATION TONSILLECTOMY PROCEDURE: HISTORICAL TONSILLECTOMY HYSTERECTOMY PROCEDURE: HISTORICAL HYSTERECTOMY; COMMENT: TAHBSO OTHER SURGICAL HISTORY 12/08 PROCEDURE: MAMMOGRAM Medical History Medical History Date Comments Irritable bowel syndrome 09/10/2006 DX:Irri table bowel syndrome Unspecified urinary incontinence 09/10/2006 DX:Unspecified urinary incontinence Lumbago 09/10/2006 DX:Lumbago Cervicalgia 09/10/2006 DX:Cervicalgia Family History Medical History Relation Name Comments Other: alive and well Father Other: alive and well Mother Other: cerebral palsy Son 1 severe mental retardation, feeding tube Relation Name Status Comments Father Mother Son 1 Son 2 Social History Tobacco Use Types Packs/Day Years Used Date Smoking Tobacco: Former Cigarettes Q uit: 03/02/1992 Alcohol Use Standard Drinks/Week Comments No 0 (1 standard drink = 0.6 oz pur e alcohol) Comments Unknown Sex and Gender Information Value Date Recorded Sex Assigned at Female 06/08/2025 12:56 PM EDT Legal Sex Female 7:53 AM EST Gender Identity Female 06/08/2025 12:56 PM EDT Sexual Orientation Not on file Obstetrics History Plan of Treatment Health Maintenance Due Date Last Done Comments Breast Cancer Screening 1959 Colorectal Cancer Screening: Colonoscopy 1959 DTaP,Tdap,and Td Vaccines (1 - Tdap) 1978 Pneumococcal Vaccine: 50+ Ye ars (1 of 1 - PCV) 2009 Zoster Vaccines (1 of 2) 2009 Depression Screening 12/02/2024 Falls Risk Assessment 12/22/2024 Hepatitis C Screening 12/22/2024 Osteoporosis Screening (Bone Density Screening) 12/22/2024 Social Influencers of Health Screening 12/22/2024 COVID-19 Vaccine (1 - 2023-2 5 season) 2025 Influenza Vaccine (#1) 2025 RSV Immunization Adult Patie nts (1 - 1-dose 75+ series) 2034 HIB Vaccines Aged Out No longer eligi ble based on patient's age to complete this topic HPV Vaccines Aged Out No longer eligi ble based on patient's age to complete this topic Hepatitis A Vaccines Aged Out No long er eligible based on patient's age to complete this topic Hepatitis B Vaccines Aged Out No long er eligible based on patient's age to complete this topic IPV Vaccines Aged Out No longer eligi ble based on patient's age to complete this topic MMR Vaccines Aged Out No longer eligi ble based on patient's age to complete this topic Meningococcal ACWY Vaccine Aged Out N o longer eligible based on patient's age to complete this topic Meningococcal B Vaccine Aged Out No l onger eligible based on patient's age to complete this topic RSV Immunization Patients Un sully 20 months Aged Out No longer eligible b ased on patient's age to complete this topic Varicella Vaccines Aged Out No longer eligible based on patient's age to complete this topic Insurance MEDICAID - [place] [facility] Member Subscriber Plan / Payer (Ef fective 2024-Present) Name:NICOL HA Relation to Subscriber:Self Name:Nicol Ha Payer ID:[id number] Group ID:[id number] Type:Not on file Address: [address] [place] [id number] Care Teams Gathering Machine Setter Relationship Specialty Start Date End Date Katelyn Porter MD [address] [place] [address] PCP - General Family Medicine 06/08/25
--- OUTSIDE RECORDS SUMMARY | 2025-09-06 14:25 | XMS_ITS | Encounter Summary ---
Author Organization [employer] Address [address] [facility] [address] [place] [address] Care Team Providers Care Tank Cooper Name Role Phone Katelyn Porter MD Primary Care Provider [phone] Reason for Visit * Reason Onset Date Comments Nurse Triage 11/09/2024 Encounter Details Date Type Department Care Team ([facility] st Contact Info) Description 11/09/2024 Telephone [facility] MEDICINE [address] [place] [address] Katelyn Porter MD [address] [place] [address] Nurse Triage Social History Tobacco Use Types Packs/Day Years [...] housing situation today? I have amauri hutchinson 02/07/[address] you li ve. Do you have problems with any of the following? None of the above 02/07/2024 Food Insecurity Answer Date Recorded Within the past 12 months, y ou worried that your food would run out before you got money to buy more: Never True 02/07/2024 Within the past 12 months,th e food you bought just didn't last and you didn't have enough money to get more: Never True 07/2024 Transportation Answer Date Recorded In the past 12 months, has l ack of transportation kept you from medical appts, meetings, work or from getting things needed for daily living? No 02/07/2024 Utilities Answer Date Recorded In the past 12 months, has t he electric, gas, oil or water company threatened to shut off services in your home? No 02/07/2024 Depression Answer Date Recorded Patient Health Questionnaire-2 Score 0 10/12/2024 Comments No Sex and Gender Information Value Date Recorded Sex Assigned at Female 10/01/2022 10:21 AM EDT Legal Sex Female 10:21 AM EDT Gender Identity Female 10/01/2022 10:21 AM EDT Sexual Orientation Straight 10/01/2022 10 :21 AM EDT documented as of this encounter Miscellaneous Notes * Telephone Encounter - Lorenzo Thomas - 11/09/2024 3:32 PM EST Tc from pt requesting a callback as she missed the call [phone] * Telephone Encounter - Lorenzo Thomas - 11/09/2024 9:59 AM EST Symptom: Colds Outcome: Schedule an appointment to be seen within 24 hours Reason: Caller denied all higher acuity questions The caller accepted this outcome. documented in this encounter Plan of Treatment Upcoming Encounters Date Type Department Care Team (Late st Contact Info) Description 09/27/2025 9:30 AM EDT Office Visit [facility] ADULT DENTAL [address] [facility] [place] [address] Cyrus Doty documented as of this encounter Visit Diagnoses Not on filedocumented in this encounter Additional Health Concerns Assessment Noted Time PHQ-9 Depression Total Score: 7 10/12/20 24 3:30 PM EST documented as of this encounter Care Teams Tank Cooper Relationship Specialty Start Date End Date Katelyn Porter MD [address] [place] [address] PCP - General Family Medicine 02/08/23 [facility] Surgeon Orthopaedic Surgery 01/15/24 documented as of this encounter
--- OUTSIDE RECORDS SUMMARY | 2025-09-06 14:25 | XMS_ITS | Encounter Summary ---
Author Organization [employer] Address [address] [place] [address] Care Team Providers Care Furnace Door Tender Name Role Phone Katelyn Porter MD Primary Care Provider [phone] Reason for Visit * Reason Comments Med Refill Encounter Details Date Type Department Care Team ([facility] Contact Info) Description 06/14/2025 Refill [facility] CHC MED & PEDS [address] [place], [place] [phone] Katelyn Porter MD [address] [place] [address] Arthritis Social History Tobacco Use Types Packs/Day [...] Description 09/27/2025 9:30 AM EDT Office Visit [facility] ADULT DENTAL [address] [place] [address] Cyrus Doty documented as of this encounter Visit Diagnoses Diagnosis Arthritis Unspecified arthropathy, site unspecified documented in this encounter Additional Health Concerns Assessment Noted Time PHQ-9 Depression Total Score: 7 10/12/20 24 3:30 PM EST documented as of this encounter Care Teams Furnace Door Tender Relationship Specialty Start Date End Date Katelyn Porter MD [address] [place] [id number] PCP - General Family Medicine 02/08/23 [facility] Surgeon Orthopaedic Surgery 01/15/24 documented as of this encounter
--- OUTSIDE RECORDS SUMMARY | 2025-09-06 14:25 | XMS_ITS | Encounter Summary ---
Author Organization [employer] Address [address] [facility] [address] [facility] [facility] [address] [place] [address] Care Team Providers Care Customer Care Professional Name Role Phone Katelyn Porter MD Primary Care Provider [phone] Reason for Visit * Reason Onset Date Comments Nurse Triage 10/15/2024 Encounter Details Date Type Department Care Team ([facility] st Contact Info) Description 10/15/2024 Telephone [facility] MEDICINE [address] [place] [address] Katelyn Porter MD [address] [place] [address] Nurse Triage Social History Tobacco Use Types [...] encounter Miscellaneous Notes * Telephone Encounter - Katie Roberts RN - 10/15/2024 11:35 AM EST Called pt. Back. No answer. Left message on pt. Voice mail to please call back [facility] nurses at [phone] and also let her know that I left a text message on her phone that she can buy regular Mucinex OTC and can use Dayquill or Nyquill as they are safe for HTN. * Telephone Encounter - Eriberto Carbone - 10/15/2024 11:34 AM EST Pt returning call * Telephone Encounter - Katie Roberts RN - 10/15/2024 10:08 AM EST Called pt. Back. No answer. Texted pt. Through [employer] and notified her that she can safely take Plain Mucinex OTC and to call us back if she has any further questions or concerns. Message went through as DELIVERED. * Telephone Encounter - Perlita Dill MD - 10/15/2024 10:01 AM EST Pt was seen by for the same .Please advise to come back to be seen at [facility] or can take OTC mucinex * Telephone Encounter - Katie Roberts RN - 10/15/2024 8:36 AM EST Called pt. She states that she has had laryngitis x 10 days ago and now pt. Has a cough and blood in her right ear. When pt. Talks she gets pain in her right ear and ear feels congested. Pt. Is on anantibiotic but is requesting something for her cough. Cough keeping her up at night. Pt. Looking for a RX for a cough medicine that will not affect her BP. Pt. States that she took Dayquill last yearbut unsure if that controls a cough. Schedule full today and pt. States that she just saw Dr. Fuentes simmons days ago. Cough is keeping pt. Up at night also so she is looking for a safe daytime cough medicine and a cough suppressant for nighttime to allow her to sleep. Please advise. Protocol Used: Cough (Adult) Protocol-Based Disposition: See in Office or Video Visit Today Video visit not offered Positive Triage Questions: * Severe coughing spells (e.g., whooping sound after coughing, vomiting after coughing) * Continuous (nonstop) coughing interferes with work or school and no improvement using cough treatment per Care Advice * All higher-acuity triage questions were negative Care Advice Discussed: * Coughing Spells * Prevent Dehydration * Avoid Tobacco Smoke * Humidifier * Telephone Encounter - Elvin Jacinto - 10/15/2024 8:28 AM EST Symptom: Cough Outcome: Talk to a nurse or provider within 15 minutes Reason: Any trouble breathing through the mouth The caller accepted this outcome. Contact pt at [phone] documented in this encounter Plan of Treatment Upcoming Encounters Date Type Department Care Team (Late st Contact Info) Description 09/27/2025 9:30 AM EDT Office Visit [facility] ADULT DENTAL [address] [place] [address] Cyrus Doty documented as of this encounter Visit Diagnoses Not on filedocumented in this encounter Additional Health Concerns Assessment Noted Time PHQ-9 Depression Total Score: 7 10/12/20 3:30 PM EST documented as of this encounter Care Teams Customer Care Professional Relationship Specialty Start Date End Date Katelyn Porter MD [address] [place] [id number] PCP - General Family Medicine 02/08/23 [facility] Surgeon Orthopaedic Surgery 01/15/24 documented as of this encounter
--- OUTSIDE RECORDS SUMMARY | 2025-09-06 14:25 | XMS_ITS | Encounter Summary ---
Author Organization [employer] Address [address] [facility] 7t [place] [address] Care Team Providers Care Radio Division Captain Name Role Phone Perlita Dill MD Primary Care Provider [phone] Katelyn Porter MD Primary Care Provider [phone] Encounter Details Date Type Department Care Team (Latest Contact Info) Description 10/03/2022 Abstract [facility] CONVERSIONS Dental, Provider, DDS Social [...] Description 09/27/2025 9:30 AM EDT Office Visit [facility] CHC ADULT DENTAL [address] [place] [address] Cyrus Doty documented as of this encounter Visit Diagnoses Not on filedocumented in this encounter Care Teams Radio Division Captain Relationship Specialty Start Date End Date Perlita Dill MD [address] [place] [id number] PCP - General Family Medicine 04/01/13 02/07/23 Katelyn Porter MD [address] [place] [address] PCP - General Family Medicine 02/08/23 [facility] Surgeon Orthopaedic Surgery 01/15/24 documented as of this encounter
--- OUTSIDE RECORDS SUMMARY | 2025-09-06 14:25 | XMS_ITS | Encounter Summary ---
Author Organization [employer] Address [address] [facility] 7t [place] [address] Care Team Providers Care Net Application Support Specialist Name Role Phone Perlita Dill MD Primary Care Provider [phone] Katelyn Porter MD Primary Care Provider [phone] Reason for Visit * Reason Onset Date Comments returning call 12/05/2022 Encounter Details Date Type Department Care Team ([facility] st Contact Info) Description 12/05/2022 Telephone [facility] CHC MED & PEDS [address] [place] [address] Perlita Dill MD [address] [place] [address] returning call Social History Tobacco Use Types Packs/Day Years [...] Orientation Straight 10/01/2022 10 :21 AM EDT COVID-19 Exposure Response Date Recorded In the last 10 days, have yo u been in contact with someone who was confirmed or suspected to have Coronavirus/COVID-19? No / Unsure 11/23/2022 3:08 PM EST documented as of this encounter Miscellaneous Notes * Telephone Encounter - Mamie Renee - 12/05/2022 12:11 PM EST Tc from pt returning call . documented in this encounter Plan of Treatment Upcoming Encounters Date Type Department Care Team (Late st Contact Info) Description 09/27/2025 9:30 AM EDT Office Visit [facility] ADULT DENTAL [address] [place] [address] Cyrus Doty documented as of this encounter Visit Diagnoses Not on filedocumented in this encounter Care Teams Net Application Support Specialist Relationship Specialty Start Date End Date Perlita Dill MD [address] [place] [address] PCP - General Family Medicine 04/01/13 02/07/23 Katelyn Porter MD [address] [place] [address] PCP - General Family Medicine 02/08/23 [facility] Surgeon Orthopaedic Surgery 01/15/24 documented as of this encounter
--- OUTSIDE RECORDS SUMMARY | 2025-09-06 14:25 | XMS_ITS | Encounter Summary ---
Author Organization [employer] Address [address] [facility] [address] [place] [address] Care Team Providers Care Cigarette Tester Name Role Phone Katelyn Porter MD Primary Care Provider [phone] Encounter Details Date Type Department Care Team ([facility] st Contact Info) Description 11/09/2024 Telephone [facility] MEDICINE [address] [place] [address] Katelyn Porter MD [address] [place] [address] Social History Tobacco Use Types Packs/Day Years [...] Description 09/27/2025 9:30 AM EDT Office Visit [facility] ADULT DENTAL [address] [place] [address] Cyrus Doty documented as of this encounter Visit Diagnoses Not on filedocumented in this encounter Additional Health Concerns Assessment Noted Time PHQ-9 Depression Total Score: 7 10/12/20 24 3:30 PM EST documented as of this encounter Care Teams Cigarette Tester Relationship Specialty Start Date End Date Katelyn Porter MD [address] [place] [address] PCP - General Family Medicine 02/08/23 [facility] Surgeon Orthopaedic Surgery 01/15/24 documented as of this encounter
--- OUTSIDE RECORDS SUMMARY | 2025-09-06 14:25 | XMS_ITS | Encounter Summary ---
Author Organization [employer] Address [address] [place] [address] Care Team Providers Care Regulatory Affairs Assistant Name Role Phone Katelyn Porter MD Primary Care Provider [phone] Reason for Visit * Reason Onset Date Comments rs/double ins CCA and [facility] 06/25/2024 Encounter Details Date Type Department Care Team (Late st Contact Info) Description 06/25/2024 Telephone [facility] ADULT DENTAL [address] [place] [address] Rica Hernandez BDS rs/double ins [facility] and [facility] Social History Tobacco Use Types Packs/Day Years Used Date Smoking Tobacco: Former Cigarettes Passive Smoke Exposure: Never Smokeless Tobacco: Never Alcohol Use Standard Drinks/Week Comments Never 0 (1 standard drink = 0.6 oz pur e alcohol) Depression Answer Date Recorded Patient Health Questionnaire-9 Score 3 05/16/2023 Housing Stability Answer Date Recorded What is your housing situation today? I have amaurijuan carlos hutchinson 02/07/[address] you [...] Answer Date Recorded Patient Health Questionnaire-2 Score 2 05/16/2023 Comments No Sex and Gender Information Value Date Recorded Sex Assigned at Female 10/01/2022 10:21 AM EDT Legal Sex Female 10:21 AM EDT Gender Identity Female 10/01/2022 10:21 AM EDT Sexual Orientation Straight 10/01/2022 10 :21 AM EDT documented as of this encounter Miscellaneous Notes * Telephone Encounter - Tatum Gil - 06/25/2024 8:58 AM EDT patient is coming up as having active [employer] and [employer]. When appt rescheduled only [employer] waslisted. They informed me they also had [employer]. Upon having run both insurances in the portal, both arecoming up as active and this is why both have been posted on chart as of today. Also when rescheduling appts, the option to document arrival time does not come up, unless I am missing something, so on this particular appt arrival time was not documented. Email also sent to [employer] concerning appt DR documented in this encounter Plan of Treatment Upcoming Encounters Date Type Department Care Team (Late st Contact Info) Description 09/27/2025 9:30 AM EDT Office Visit [facility] ADULT DENTAL [address] [place] [address] Cyrus Doty documented as of this encounter Visit Diagnoses Not on filedocumented in this encounter Additional Health Concerns Assessment Noted Time PHQ-9 Depression Total Score: 3 05/16/20 23 11:16 AM EDT documented as of this encounter Care Teams Regulatory Affairs Assistant Relationship Specialty Start Date End Date Katelyn Porter MD [address] [place] [address] PCP - General Family Medicine 02/08/23 [facility] Surgeon Orthopaedic Surgery 01/15/24 documented as of this encounter
--- OUTSIDE RECORDS SUMMARY | 2025-09-06 14:25 | XMS_ITS | Encounter Summary ---
Author Organization [employer] Address [address] [facility] 7t [place] [address] Care Team Providers Care Warehouse Receiving Clerk Name Role Phone Perilta Dill MD Primary Care Provider [phone] Katelyn Porter MD Primary Care Provider [phone] Reason for Visit * Reason Onset Date Comments returning call 12/05/2022 Encounter Details Date Type Department Care Team ([facility] st Contact Info) Description 12/05/2022 Telephone [facility] CHC MED & PEDS [address] [place] [address] Perlita Dill MD [address] [place] [address] returning call Social History Tobacco Use Types [...] Telephone Encounter - Mamie Renee - 12/05/2022 2:09 PM EST Tc from pt returning call . documented in this encounter Plan of Treatment Upcoming Encounters Date Type Department Care Team (Late st Contact Info) Description 09/27/2025 9:30 AM EDT Office Visit [facility] ADULT DENTAL [address] [place] [address] Cyrus Doty documented as of this encounter Visit Diagnoses Not on filedocumented in this encounter Care Teams Warehouse Receiving Clerk Relationship Specialty Start Date End Date Perlita Dill MD [address] [place] [address] PCP - General Family Medicine 04/01/13 02/07/23 Katelyn Porter MD [address] [place] [address] PCP - General Family Medicine 02/08/23 [facility] Surgeon Orthopaedic Surgery 01/15/24 documented as of this encounter
--- OUTSIDE RECORDS SUMMARY | 2025-09-06 14:25 | XMS_ITS | Encounter Summary ---
Author Organization [employer] Address [address] [facility] [address] [facility] [address] 7[address] [place] [address] Care Team Providers Care Mash Tub Cooker Name Role Phone Perlita Dill MD Primary Care Provider [phone] Katelyn Porter MD Primary Care Provider [phone] Encounter Details Date Type Department Care Team ([facility] Contact Info) Description 12/05/2022 Orders Only [facility] CHC MED & PEDS [address] [place], [place] [phone] Katelyn Porter MD [address] [place], [place] [phone] Hyperlipidemia, unspecified hyperlipidemia type (Primary Dx) Social History Tobacco Use Types Packs/Day Years [...] PM EST documented as of this encounter Plan of Treatment Upcoming Encounters Date Type Department Care Team ([facility] Contact Info) Description 09/27/2025 9:30 AM EDT Office Visit [facility] ADULT DENTAL [address] [place] [address] Cyrus Doty documented as of this encounter Visit Diagnoses Diagnosis Hyperlipidemia, unspecified hyperlipidemia type- Primary documented in this encounter Care Teams Mash Tub Cooker Relationship Specialty Start Date End Date Perlita Dill MD [address] [place] [address] PCP - General Family Medicine 04/01/13 02/07/23 Katelyn Porter MD [address] [place] [address] PCP - General Family Medicine 02/08/23 [facility] Surgeon Orthopaedic Surgery 01/15/24 documented as of this encounter
--- OUTSIDE RECORDS SUMMARY | 2025-09-06 14:25 | XMS_ITS | Encounter Summary ---
Author Organization [employer] Address [address] [facility] 7[address] [place] [address] Care Team Providers Care Paper Machine Tender Name Role Phone Perlita Dill MD Primary Care Provider [phone] Katelyn Porter MD Primary Care Provider [phone] Reason for Visit * Reason Onset Date Comments returning call 12/05/2022 Encounter Details Date Type Department Care Team ([facility] Contact Info) Description 12/05/2022 Telephone [facility] MED & PEDS [address] [place] [address] Perlita Dill MD [address] [place] [address] returning call Social History Tobacco Use Types [...] Upcoming Encounters Date Type Department Care Team ([facility] Contact Info) Description 09/27/2025 9:30 AM EDT Office Visit [facility] ADULT DENTAL [address] [place] [address] Cyrus Doty documented as of this encounter Visit Diagnoses Not on filedocumented in this encounter Care Teams Paper Machine Tender Relationship Specialty Start Date End Date Perlita Dill MD [address] [place] [address] PCP - General Family Medicine 04/01/13 02/07/23 Katelyn Porter MD [address] [place] [address] PCP - General Family Medicine 02/08/23 [facility] Surgeon Orthopaedic Surgery 01/15/24 documented as of this encounter
--- OUTSIDE RECORDS SUMMARY | 2025-09-06 14:26 | XMS_ITS | Encounter Summary ---
Author Organization [employer] Address [address] [facility] 7[address] [place] [address] Care Team Providers Care Mysql Database Developer Name Role Phone Katelyn Porter MD Primary Care Provider [phone] Reason for Visit * Reason Onset Date Comments rs appt 08/30/2023 Encounter Details Date Type Department Care Team ([facility] st Contact Info) Description 08/30/2023 Telephone [facility] ADULT [facility]AL [address] [place] [address] Rica Hernandez BDS rs appt Social History Tobacco Use Types Packs/Day Years Used Date Smoking Tobacco: Former Cigarettes Passive Smoke Exposure: Never Smokeless Tobacco: Never Alcohol Use Standard Drinks/Week Comments Never 0 (1 standard drink = 0.6 oz pur e alcohol) Depression Answer Date Recorded Patient Health Questionnaire-9 Score 3 05/16/2023 Depression Answer Date Recorded Patient Health Questionnaire-2 Score 2 05/16/2023 Comments Unknown Sex and Gender Information Value Date Recorded Sex Assigned at Female 10/01/2022 10:21 AM EDT Legal Sex Female 10:21 AM EDT Gender Identity Female 10/01/2022 10:21 AM EDT Sexual Orientation Straight 10/01/2022 10 :21 AM EDT documented as of this encounter Miscellaneous Notes * Telephone Encounter - Tatum Gil - 08/30/2023 4:19 PM EDT Not sure if you are scheduling for Dr. Hernandez but patient stated she was told to call back today and that the 03 of September was being offered for her to come in. She called once office was closed and unable to documented in this encounter Plan of Treatment Upcoming Encounters Date Type Department Care Team (Late st Contact Info) Description 09/27/2025 9:30 AM EDT Office Visit [facility] ADULT DENTAL [address] [place] [address] Cyrus Doty documented as of this encounter Visit Diagnoses Not on filedocumented in this encounter Additional Health Concerns Assessment Noted Time PHQ-9 Depression Total Score: 3 05/16/20 23 11:16 AM EDT documented as of this encounter Care Teams Mysql Database Developer Relationship Specialty Start Date End Date Katelyn Porter MD [address] [place] [address] PCP - General Family Medicine 02/08/23 [facility] Surgeon Orthopaedic Surgery 01/15/24 documented as of this encounter
--- OUTSIDE RECORDS SUMMARY | 2025-09-06 14:26 | XMS_ITS | Encounter Summary ---
Author Organization [employer] Address [address] [facility] [address] 7[address] [place] [address] Care Team Providers Care Deaf And Hard Of Hearing Teacher Name Role Phone Katelyn Porter MD Primary Care Provider [phone] Reason for Visit * Reason Comments Med Refill Encounter Details Date Type Department Care Team ([facility] Contact Info) Description 02/17/2024 Refill [facility] CHC MED & PEDS [address] [place], [place] [phone] Katelyn Porter MD [address] [place] [address] Social History Tobacco Use Types Packs/Day Years [...] Description 09/27/2025 9:30 AM EDT Office Visit [facility] ADULT DENTAL [address] [place] [address] Cyrus Doty documented as of this encounter Visit Diagnoses Not on filedocumented in this encounter Additional Health Concerns Assessment Noted Time PHQ-9 Depression Total Score: 3 05/16/20 23 11:16 AM EDT documented as of this encounter Care Teams Deaf And Hard Of Hearing Teacher Relationship Specialty Start Date End Date Katelyn Porter MD [address] [place] [address] PCP - General Family Medicine 02/08/23 [facility] Surgeon Orthopaedic Surgery 01/15/24 documented as of this encounter
--- OUTSIDE RECORDS SUMMARY | 2025-09-06 14:26 | XMS_ITS | Clinical Summary ---
Author Organization [facility] Address [address] [place] [address] Care Team Providers Care Food Assembler Name Role Phone Perlita Dill MD Primary Care Provider [phone] Medications Medication Sig Dispensed Refills Start Date End Date Status PREMARIN 0.625 MG tablet Take 1 tablet by mouth daily. 0 01/31/2021 Active dicyclomine (BENTYL) 10 MG capsule Take 20 mg by mouth 3 (three) times a day. 0 01/31/2021 Active ibuprofen (ADVIL,MOTRIN) 800 MG tablet Take 1 tablet by mouth daily. 0 01/31/2021 Active levothyroxine (SYNTHROID, LEVOXYL) tablet 50 mcg Take 1 tablet by mouth daily. 0 01/31/2021 Active lisinopril (PRINIVIL,ZESTRIL) tablet 10 mg Take 10 mg by mouth daily. 0 01/31/2021 Active omeprazole (PriLOSEC) 20 MG capsule Take 1 capsule by mouth 2 (two) times a day. 0 02/22/2021 Active LYRICA 150 MG capsule Take 150 mg by mouth 3 (three) times a day. 0 02/21/2021 Active DETROL LA 4 MG 24 hr capsule Take 1 capsule by mouth daily. 0 02/21/2021 Active Social History Tobacco Use Types Packs/Day Years Used Date Smoking Tobacco: Never Assessed Sex and Gender Information Value Date Recorded Sex Assigned at Female 03/06/2021 3:28 PM EDT Gender Identity Female 03/06/2021 3:28 PM EDT Sexual Orientation Not on file Last Filed Vital Signs Vital Sign Reading Time Taken Comments Blood Pressure 160/86 03/06/2021 5:32 PM EDT Pulse 76 03/06/2021 5:32 PM EDT Temperature 36.2 C (97.1 F) 03/06/2021 5:32 PM EDT Respiratory Rate 18 03/06/2021 5:32 PM EDT Oxygen Saturation 97% 03/06/2021 5:32 PM EDT Inhaled Oxygen Concentration - - Weight 61.2 kg (135 lb) 03/06/2021 3:45 PM EDT Height 157.5 cm (5' 2 ) 03/06/2021 3:45 PM EDT Body Mass Index 24.69 03/06/2021 3:45 PM EDT Plan of Treatment Health Maintenance Due Date Last Done Comments Hepatitis C Screening 1959 COVID-19 Vaccine (#1) 1959 Depression Screening 1971 Preventative Health Evaluation 1977 DTap / Tdap / Td (1 - Tdap) 1978 Colon Cancer Screening (Colonoscopy) 2004 Breast Cancer Screening (Mammogram) 2009 Shingrix-Zoster Vaccine (1 of 2) 2009 Fall Risk Assessment 2024 Osteoporosis Screening (DEXA Scan) 2024 Pneumococcal Vaccine (1 of 1 - PCV) 2024 Influenza Vaccine (#1) 2025 RSV Adult > 60+ Yrs or Pregn ant (1 - 1-dose 75+ series) 2034 Hepatitis B Vaccines Aged Out No long er eligible based on patient's age to complete this topic RSV Ped < 20 months Aged Out No longe r eligible based on patient's age to complete this topic Care Teams Food Assembler Relationship Specialty Start Date End Date Perlita Dill MD [address] [facility] [place] [address] PCP - General Adult Medicine 03/06/21
--- OUTSIDE RECORDS SUMMARY | 2025-09-06 14:26 | XMS_ITS | Encounter Summary ---
Author Organization [employer] Address [address] [facility] [address] [place] [address] Care Team Providers Care Pigment Furnace Tender Name Role Phone Katelyn Porter MD Primary Care Provider [phone] Reason for Visit * Reason Onset Date Comments Med Refill 12/10/2024 Encounter Details Date Type Department Care Team ([facility] Contact Info) Description 12/10/2024 Telephone [facility] MEDICINE [address] [place] [address] Katelyn Porter MD [address] [place] [address] Med Refill Social History Tobacco Use Types Packs/Day Years [...] * Telephone Encounter - Lorenzo Thomas - 12/10/2024 10:39 AM EST TC from pt requesting medication refill. Medications needing refill : levothyroxine (Synthroid, Levoxyl) 88 MCG tablet Lyrica 150 MG capsule hydroCHLOROthiazide 12.5 MG tablet To be sent to: [facility] documented in this encounter Plan of Treatment Upcoming Encounters Date Type Department Care Team (Late st Contact Info) Description 09/27/2025 9:30 AM EDT Office Visit [facility] ADULT DENTAL [address] [place] [address] Cyrus Doty documented as of this encounter Visit Diagnoses Not on filedocumented in this encounter Additional Health Concerns Assessment Noted Time PHQ-9 Depression Total Score: 7 10/12/20 24 3:30 PM EST documented as of this encounter Care Teams Pigment Furnace Tender Relationship Specialty Start Date End Date Katelyn Porter MD [address] [place] [id number] PCP - General Family Medicine 02/08/23 [facility] Surgeon Orthopaedic Surgery 01/15/24 documented as of this encounter
--- OUTSIDE RECORDS SUMMARY | 2025-09-06 14:26 | XMS_ITS | Encounter Summary ---
Author Organization [employer] Address [address] [facility] [address] [place] [address] Care Team Providers Care Director Of Outside Sales Name Role Phone Katelyn Porter MD Primary Care Provider [phone] Reason for Visit * Reason Comments Med Refill Encounter Details Date Type Department Care Team ([facility] Contact Info) Description 03/27/2025 Refill [facility] CHC MED & PEDS [address] [place], [place] [phone] Katelyn Porter MD [address] [place] [address] Arthritis Social History Tobacco Use Types Packs/Day [...] Description 09/27/2025 9:30 AM EDT Office Visit [facility] ADULT DENTAL [address] [place] [address] Cyrus Doty documented as of this encounter Visit Diagnoses Diagnosis Arthritis Unspecified arthropathy, site unspecified documented in this encounter Additional Health Concerns Assessment Noted Time PHQ-9 Depression Total Score: 7 10/12/20 24 3:30 PM EST documented as of this encounter Care Teams Director Of Outside Sales Relationship Specialty Start Date End Date Katelyn Porter MD [address] [place] [id number] PCP - General Family Medicine 02/08/23 [facility] Surgeon Orthopaedic Surgery 01/15/24 documented as of this encounter
--- OUTSIDE RECORDS SUMMARY | 2025-09-06 14:26 | XMS_ITS | Clinical Summary ---
Author Organization [employer] Address [address] [facility] [address] [place] [address] Care Team Providers Care Speech Language Assistant Name Role Phone Katelyn Porter MD Primary Care Provider [phone] Allergies Active Allergy Reactions Criticality Noted Date Comments Codeine Other reaction(s): unspecified Gluten Meal 11/19/2022 Lactose 11/19/2022 Lisinopril Swelling 11/11/2024 Milnacipran 11/15/2014 Other reaction(s): GI Problems Medications * This document contains information received from the source organization and may not represent a complete record from that organization. loratadine (Claritin) 10 MG tablet Take 1 tablet by mouth 1 (one) time each day. 03/27/20 16 Active multivitamin (Theragran) tablet Take 1 tablet by mouth 1 (one) time each day. Active Calcium Carb-Cholecalcife rol 500-10 MG-MCG tablet Take 1 tablet by mouth in the morning and at bedtime. Active Blood Pressure kitIndications:In fluenza-like symptoms 1 each in the morning and at bedtime. 1 kit 11/15/20 22 Active Spacer/Aero-Holdi ng Chambers (OptiChamber Tyra) miscIndications:I nfluenza-like symptoms 1 each every 4 (four) hours if needed (asthma). 1 each 11/15/20 22 Active hydrOXYzine HCl (Atarax) 10 MG tabletIndications :Anxiety TAKE ONE TABLET EVERY 24 HOURS NEEDED FOR ANXIETY 90 tablet 5 12/24/19 23 Active Icosapent Ethyl (Vascepa) 1 g capsule Take 2 capsules (2 g) by mouth with breakfast and with evening meal. 120 capsule 11 09/23/20 23 Active triamcinolone (Kenalog) 0.5 % ointment Apply topically 2 times daily. 90 g 10/16/20 23 Active Multiple Vitamins-Minerals (B complex-vitamin C-vitamin E-zinc) tablet Take 1 tablet by mouth Once per day. 90 tablet 1 04/06/20 24 Active B Cagngnl-G-Z-Zn (Stress Formula/Zinc, B-Compl,) tablet TAKE ONE TABLET DAILY 90 tablet 1 09/30/20 24 Active levothyroxine (Synthroid, Levoxyl) 88 MCG tablet TAKE ONE TABLET EVERY MORNING BEFORE BREAKFAST 90 tablet 1 03/09/20 25 Active hydroCHLOROthiazi de 12.5 MG tabletIndications :Primary hypertension TAKE TWO TABLETS EVERY MORNING 180 tablet 1 03/09/20 25 Active zolpidem (Ambien) 10 MG tablet TAKE ONE CAPSULE AT BEDTIME NEEDED 04/22/20 25 Active baclofen (Lioresal) 20 MG tablet Take 0.5 tablets (10 mg) by mouth 3 times daily. 90 tablet 05/11/20 25 Active famotidine (Pepcid) 20 MG tablet TAKE TWO TABLETS AT BEDTIME 60 tablet 11 05/05/20 25 Active dicyclomine (Bentyl) 10 MG capsule TAKE ONE CAPSULE THREE TIMES DAILY 270 capsule 1 05/10/20 25 Active pantoprazole (ProtoNix) 40 MG EC tablet TAKE ONE TABLET TWICE DAILY. DO NOT BREAK, CRUSH, DISSOLVE OR CHEW 180 tablet 1 05/31/20 25 Active amLODIPine (Norvasc) 5 MG tablet Take 1 tablet (5 mg) by mouth Once per day. 90 tablet 1 06/10/20 25 Active estradiol (Estrace) 0.5 MG tablet Take 1.5 tablets (0.75 mg) by mouth Once per day. 135 tablet 1 07/05/20 25 Active rosuvastatin (Crestor) 40 MG tabletIndications :Hyperlipidemia, unspecified hyperlipidemia type TAKE ONE TABLET BY MOUTH EVERY MORNING 90 tablet 1 07/09/20 25 Active Detrol LA 4 MG 24 hr capsuleIndication s:Female stress incontinence TAKE ONE CAPSULE DAILY BEFORE SUPPER 90 capsule 1 07/16/20 25 Active diclofenac (Cataflam) 50 MG tablet TAKE ONE TABLET BY MOUTH THREE TIMES DAILY 90 tablet 1 07/20/20 25 Active ferrous gluconate (Fergon) 324 (37.5 Fe) MG tablet TAKE ONE TABLET EVERY MORNING WITH BREAKFAST 90 tablet 1 07/22/20 25 Active vitamin E 180 MG (400 UNIT) capsule TAKE ONE CAPSULE DAILY 90 capsule 1 07/22/20 25 Active Lyrica 150 MG capsuleIndication s:Arthritis TAKE ONE CAPSULE THREE TIMES DAILY 90 capsule 3 07/23/20 25 Active fenofibrate (Triglide) 160 MG tablet TAKE ONE TABLET EVERY MORNING 90 tablet 1 07/29/20 25 Active pramipexole (Mirapex) 0.5 MG tablet Take 1 tablet (0.5 mg) by mouth at bedtime. 90 tablet 2 08/20/20 25 Active albuterol (Ventolin HFA) 108 (90 Base) MCG/ACT inhalerIndication s:Influenza-like symptoms INHALE 2 PUFFS BY MOUTH EVERY FOUR HOURS NEEDED FOR WHEEZING OR SHORTNESS OF BREATH 18 g 2 08/27/20 25 Active pramipexole (Mirapex) 0.5 MG tablet TAKE ONE TABLET AT BEDTIME 90 tablet 2 08/18/20 24 2024 Discontinued(R eorder (will not trigger notification to Pharmacy)) albuterol (Ventolin HFA) 108 (90 Base) MCG/ACT inhalerIndication s:Influenza-like symptoms INHALE TWO puffs BY MOUTH EVERY FOUR HOURS NEEDED FOR WHEEZING OR SHORTNESS OF BREATH 18 g 2 04/22/20 25 2024 Discontinued(R eorder (will not trigger notification to Pharmacy)) Active Problems Problem Noted Date Diagnosed Date Poor balance 04/30/2025 Assessment & Plan (04/30/2025 11:28 AM EDT): Patient reports worsening fibromyalgia symptoms, particularly affecting her legs. She experiences frequent falls in the bathroom due to balance issues and leg weakness. Current treatment with Lyrica is becoming less effective. Plan: - Prescribe shower chair through [facility] for fall prevention The patient experiences impaired balance and multiple joint pains, which place her at increased risk for falls, particularly in wet and slippery environments such as the shower. A shower chair is medically necessary to provide stability and reduce the risk of injury during bathing, thereby supporting safe hygiene practices and fall prevention. Tinnitus aurium, right 10/26/2024 Assessment & Plan (10/26/2024 1:33 PM EST): Referral to Audiology and ENT for further evaluation. Abrasion of right ear canal 10/12/2024 Assessment & Plan (10/12/2024 3:59 PM EST): Prescribing Augmentin for Sx. Follow up in 2 weeks. Relevant Medications Amoxicillin-Clavulanate (Augmentin) 875-125 MG tablet Laryngitis 10/09/2024 Assessment & Plan (10/09/2024 2:03 PM EST): Rest drink plenty of fluids Cough drops Acetaminophen PRN Gastroesophageal reflux disease without esophagi tis 05/13/2024 Assessment & Plan (05/13/2024 4:04 PM EDT): Discussed current medications and advised to change treatment. Referral to Manager Risk Management. Prescribing Pepcid and Protonix. Relevant Medications Famotidine (Pepcid) 20 MG tablet Pantoprazole (Protonix) 40 MG EC Tablet Cramps, muscle, general 05/04/2024 Memory loss 05/04/2024 Assessment & Plan (10/12/2024 3:59 PM EST): Referral to Neurology for further evaluation. Assessment & Plan (05/13/2024 4:10 PM EDT): MoCa testing came back , ordering MRI of Brain for further investigation of symptoms. Muscle cramps 04/06/2024 Assessment & Plan (04/06/2024 1:38 PM EDT): Possible RLS flare up, ordering lab work for further investigation into symptoms. Prescribing B Complex and Vitamin E. Relevant Medications Alpha Tocopherol ( Vitamin E) 400 unit Capsules Multiple Vitamins-Minerals ( B Complex-Vitamin C-vitamin E-zinc)Tablet Neck pain, chronic 01/02/2024 Assessment & Plan (04/30/2025 11:21 AM EDT): Patient reports exacerbation of neck and lower back pain following prolonged standing at a concert. She describes sharp pain in the middle of her back that radiates to her left hip and middle area. The pain is severe enough to cause near-falls. Previous treatments with Lyrica have become less effective over time. The pain is significantly impacting her daily activities and quality of life. Plan: - Prescribe muscle relaxant (specific medication not mentioned) - Prescribe tramadol 10 tablets, use as needed for pain - Recommend application of cold compresses for pain relief - Recommend massage therapy - Schedule follow-up appointment in 6-8 weeks Assessment & Plan (02/17/2024 10:37 PM EDT): Patient's current health concerns include significant neck pain due to kyphosis, arthritis, and vertebra displacement. Prescribed diclofenac for pain but emphasized the limitations in treating the underlying arthritis. I suggested physical therapy as a management strategy, which the patient has been hesitant to pursue due to past experiences. I discussed the possibility of a pain management consultation for potential injections. The patient expressed a desire for effective pain management and discussed the importance of medication safety and the potential side effects of her current regimen. Assessment & Plan (01/02/2024 3:44 PM EST): Patient that presented visit with complaints of neck crepitus will be provided with muscle relaxer to treat pain. In addition, patient will be send for imaging for further evaluation. Furthermore, patient will be referred to Physical Therapy for better range of motion. Trigger middle finger of left hand 11/01/2023 Assessment & Plan (11/14/2023 12:16 PM EST): Will send to hand surgery, referral placed Hypertensive left ventricula r hypertrophy, without heart failure 09/20/2023 Overview (09/20/2023): EF 60-65%, no diastolic dysfunction, trace TR Anemia 09/20/2023 Assessment & Plan (11/14/2023 12:17 PM EST): Will check lab results and fup Assessment & Plan (09/20/2023 2:40 PM EDT): -Labs: Ferritin, CBC, Iron-Iron Binding. Patient will be given a Cologuard. -Increase of Neupro patch. Hyperlipidemia 07/11/2023 Assessment & Plan (09/20/2023 2:39 PM EDT): Repeat Labs: Ap.Protein B, Lipid Panel. Assessment & Plan (07/11/2023 3:48 PM EDT): Will recheck levels. RLS (restless legs syndrome) 04/15/2023 Assessment & Plan (04/30/2025 11:23 AM EDT): Patient reports severe restless leg syndrome symptoms, describing involuntary leg movements and inability to sit still. Plan: - Refer to sleep specialist for further evaluation and management of restless leg syndrome Assessment & Plan (11/14/2023 12:16 PM EST): Will switch to oral medication. Discontinue patches. Assessment & Plan (09/24/2023 10:59 AM EDT): Patient reports symptoms of RLS were improving in the past with dose of medication but not anymore, will need to increase dose. She has trial different medications w/o improvement of symptoms and this is affecting her daily living. Assessment & Plan (07/11/2023 3:47 PM EDT): Well controlled. Continue current regimen. Assessment & Plan (04/15/2023 8:50 AM EDT): Already on Lyrica, will trial mirapex and f/up Adjustment disorder, unspecified 04/11/2023 Anxiety 03/19/2023 Assessment & Plan (03/19/2023 4:47 PM EDT): Under stressful situation, will benefit of BH evaluation. Encounter for health-related screening Hypothyroidism 12/11/2022 Assessment & Plan (03/19/2024 11:10 PM EDT): Increase levothyroxine to 88 mcg. Monitor thyroid function test in F/U. - Patient has accepted to get RSV vaccine. She was given a handout to understand the nature of RSV. Labs: TSH Arthritis 11/19/2022 Hypertensive disorder 01/11/2015 Assessment & Plan (04/30/2025 11:25 AM EDT): Patient reports recent normal blood pressure reading of 120/- at substation operator conversion's office. However, she had an elevated reading of 152/60, which she attributes to pain. Currently on amlodipine 2.5 mg and hydrochlorothiazide for blood pressure management. Plan: - Continue amlodipine 2.5 mg - Continue hydrochlorothiazide - RN visit requested, Target < 140/90 mmHg following JNC-8 guidelines - Monitor blood pressure at follow-up visits Assessment & Plan (10/12/2024 3:57 PM EST): Controlled, continue on current medications. Assessment & Plan (10/09/2024 2:07 PM EST): Today blood pressure is elevated patient is clinically asymptomatic, I advise low Na diet take blood pressure medications every day and f/u with PCP Assessment & Plan (03/19/2024 11:07 PM EDT): Controlled. Continue current regimen. Cont hydrochlorothiazide-lisinopril. Assessment & Plan (02/17/2024 9:31 AM EDT): Controlled. Continue current regimen. Cont hydrochlorothiazide-lisinopril. Assessment & Plan (01/02/2024 3:42 PM EST): Uncontrolled: patient presented visit with an elevated blood pressure with readings of 162/70 mmHg. Will not make any changes at this time, however, advise patient to visit office in 2 weeks to follow up with readings. Will not make any changes at this time. Blood pressure was retaken at the time of visit with readings of 158/74 mmHg. Assessment & Plan (07/11/2023 3:51 PM EDT): Controlled. Continue current regimen and follow up in 6 months. Assessment & Plan (04/15/2023 8:49 AM EDT): Uncontrolled. - Will send for nursing visit in 2 weeks If SBP < 140/DBP <90 mmHg in more than 75% of home self-monitoring, continue current medication regimen and make f/u with PCP in 3 month - If SBP >140-165/DBP >90-115 mmHg , add amlodipine 5 mg and f/u with PCP in 1 month - If SBP > 165/ DBP> 115 mmHg, consult with covering provider - If SBP <90/DBP <50 mmHg, consult with covering provider. Assessment & Plan (03/19/2023 4:43 PM EDT): Uncontrolled. Reports 2/2 stress situation. Will be measuring BP at home, hold off changes. Target BP < 140/90 mmHg following JNC-8. Will send labs. Will follow up in 4 weeks. Assessment & Plan (11/23/2022 4:24 PM EST): Improvement with addition of diuretic, will increase hydrochlorothiazide from 12.5 mg to 25 mg. If not controlled will add CCB (amlodipine 5 mg) or consider switching to chlorothialidone. Will check labs. followup with PCP in 2 weeks Assessment & Plan (11/19/2022 12:49 PM EST): Uncontrolled. Large pulse pressure, at this moment will incr lisinopril and add diuretic, will f/u on Saturday and then recommended f/up w/ PCP. Female stress incontinence 10/14/2012 Irritable bowel syndrome 10/14/2012 Assessment & Plan (10/12/2024 3:58 PM EST): Referral to GI for further evaluation. Joint pain 10/14/2012 Menopausal symptom 10/14/2012 Assessment & Plan (04/30/2025 11:24 AM EDT): Patient cont with vasomotor symptoms and irritability sp menopause, reports she felt improvement with incr dose of premarin but she has been on prolonged estrogen and should be wean off. Will decr dose of 0.75 mg. She has trial other alternatives to vasomotor symptoms but they have not been effective. Assessment & Plan (10/26/2024 1:35 PM EST): Discussed with pt updated treatment plan and eventual need to see Fun House Attendant for further treatment. Will revisit next appointment. Assessment & Plan (05/16/2023 11:59 AM EDT): Patient with recurrence of basomotor symptoms. Will increase premarin from 0.6 to 0.9mg and refer to gynecology. Resolved Problems Problem Noted Date Diagnosed Date Resolved Date Urinary urgency 11/19/2022 12/11/2022 Acute cough 11/19/2022 12/11/2022 Assessment & Plan (11/23/2022 4:23 PM EST): Reports shukri drake not helpful, she is allergic to codeine, at this moment will send guaifenesin. Recommended continue jama, rtc with PCP Assessment & Plan (11/19/2022 12:50 PM EST): Acute. Discussed supportive care. Normal lung examination. Encounters Date Type Department Care Team Description 08/26/2025 Refill [facility] [address] [place] [address] Katelyn Porter MD Influenza-like symptoms 08/26/2025 Telephone [facility] [address] [place] [address] Katelyn Porter MD Nurse Triage 08/20/2025 Refill [facility] [address] [place] [address] Katelyn Porter MD 07/29/2025 Refill [facility] [address] [place] [address] Yonny Joiner MD 07/23/2025 Telephone [facility] [address] [place] [address] Katelyn Porter MD 07/22/2025 Refill [facility] [address] [place] [address] Katelyn Porter MD Arthritis 07/22/2025 Refill [facility] [address] [place] [address] Zaki Doty MD Arthritis 07/19/2025 Refill [facility] [address] [place] [address] Katelyn Porter MD 07/16/2025 Refill [facility] [address] [place] [address] Zaki Doty MD Female stress incontinence 07/09/2025 Refill [facility] [address] [place] [address] Samian So MD Hyperlipidemia, unspecified hyperlipidemia type 07/05/2025 Refill [facility] [address], [place] [phone] Katelyn Porter MD 06/24/2025 Telephone [facility] [address] [place] [address] Katelyn Porter MD Medication Question; Med Refill 06/16/2025 Refill [facility] [address] [place] [address] Katelyn Porter MD Arthritis 06/14/2025 Refill [facility] [address] [place] [address] Katelyn Porter MD Arthritis 06/10/2025 Telephone [facility] [address] [place] [address] Katelyn Porter MD Medication Request 06/09/2025 Telephone [facility] [address] [place] [address] Katelyn Porter MD 06/07/2025 Telephone [facility] [address], [place] [phone] Katelyn Porter MD from Last 3 Months Immunizations Immunization Administration Dates Next Due Influenza, Split (incl. jyoti fied surface antigen) 08/13/2013 Pfizer Covid-19 Vaccine 12+ 10/25/2021,,03/20/2021 Tdap 02/24/2019 Zoster, Recombinant 07/31/2021,05/22/2021 Social History Tobacco Use Types Packs/Day Years Used Date Smoking Tobacco: Former Cigarettes Passive Smoke Exposure: Never Smokeless Tobacco: Never Tobacco Cessation:Counseling Given: Not Answered Alcohol Use Standard Drinks/Week Comments Never 0 [...] Orientation Straight 10/01/2022 10 :21 AM EDT Last Filed Vital Signs Vital Sign Reading Time Taken Comments Blood Pressure 132/72 05/21/2025 11:01 AM EDT Pulse 82 05/21/2025 11:00 AM EDT Temperature 36.7 C (98 F) 04/30/2025 8:51 AM EDT Respiratory Rate 20 04/30/2025 8:51 AM EDT Oxygen Saturation 97% 04/30/2025 8:51 AM EDT Inhaled Oxygen Concentration - - Weight 60.8 kg (134 lb) 05/21/2025 11:00 AM EDT Height 156 cm (5' 1.42 ) 04/30/2025 8:51 AM EDT Body Mass Index 24.98 04/30/2025 8:51 AM EDT Plan of Treatment Upcoming Encounters Date Type Department Care Team (Late st Contact Info) Description 09/27/2025 9:30 AM EDT Office Visit [facility] [address] [place] [address] Cyrus Doty Health Maintenance Due Date Last Done Comments CT Colonography 1960 Colonoscopy 1960 FIT 1960 Sigmoidoscopy 1960 FOBT 08/02/2023 08/02/2022 Dental Oral Exam 03/19/2024 09/17/2023, 01/2022, 05/15/2021 Dental Prophylaxis 05/29/2024 11/27/2023, 08/14/2021 Dental X-Ray: Bitewings 09/18/2024 09/17/20 23, 10/03/2022, 05/15/2021 COVID-19 Vaccine ( season) 2025 10/25/2021, 04/10/2021, 03/20/2021 Colorectal Cancer Screening 08/02/2025 FIT DNA/Cologuard 08/02/2025 08/02/2022 Influenza Vaccine (#1) 2025 08/13/2013 Depression Screening 10/12/2025 10/12/2024, 10/12/20 Pneumococcal Vaccine: 50+ Years (1 of 1 - PCV) 10/12/2025 Postponed from 2009 (Patient Refused) Alcohol/Substance Use Screening 04/30/2026 04/30/2025 SDOH Screening 04/30/2026 04/30/2025 Tobacco Screening 04/30/2026 04/30/2025 Dental X-Ray: Full Mouth 10/09/2026 023, 09/17/2023, 07/28/2021, Additional history exists Mammogram 12/07/2026 12/07/2024, 01/0 04/2024, 11/30/2022, Additional history exists DTaP/Tdap/Td Vaccines (2 - Td or Tdap) 02/24/2029 02/24/2019 Lipid Panel 04/30/2030 04/30/2025, 04/0 07/2024, 09/23/2023, Additional history exists RSV Patients and Patients Aged 60 years or older (1 - 1-dose 75+ series) 2034 Zoster Vaccines Completed 07/31/2021, 05/22/2021 Hepatitis C Screening Completed 03/20/2023 HIB Vaccines Aged Out No longer eligi [...] patient's age to complete this topic Meningococcal Vaccine Aged Out No jorge alberto delmer eligible based on patient's age to complete this topic RSV under 20 months Aged Out No longe r eligible based on patient's age to complete this topic Rotavirus Vaccines Aged Out No longer eligible based on patient's age to complete this topic Procedures Procedure Name Priority Date/Time Associated Diagnosis Comments LIPID PANEL, STANDARD Routine 04/30/2025 9:34 AM EDT Anemia, unspecified type BI MAMMOGRAM SCREENING TOMOSYNTHESIS BILATERAL Routine 12/07/2024 8:45 AM EST PROPHYLAXIS - ADULT Routine 11/27/2023 1 0:00 AM EST PANORAMIC RADIOGRAPHIC IMAGE Routine 10/08/2023 8:00 AM EST INTRAORAL - COMPLETE SERIES OF RADIOGRAPHIC IMAGES Routine 09/17/2023 8:00 AM EDT COMPREHENSIVE ORAL EVALUATION - NEW OR ESTABLISHED PATIENT Routine 09/17/2023 8:00 AM EDT HEPATITIS C AB W/REFL TO HCV RNA, QN, PCR Routine 03/20/2023 9:20 AM EDT Encounter for health-related screening from Last 3 Months or Most Recently Relevant to Health Maintenance Results * (ABNORMAL) Lipid Panel, Standard (04/30/2025 9:34 AM EDT) Triglycerides 291(H) <150 mg/dL [facility] Comment:Desirable Triglyceri de: less than 150 mg/dLBorderline High Triglyceride 150-199 mg/dLHigh Triglyceride: 200-499 mg/dLVery High Triglyceride: greater than or equal to 5OO mg/dL Cholesterol 160 <200 mg/dL [facility] Comment:Desirable Cholestero l: less than 200 mg/dLBorderline High Cholesterol: 200-239 mg/dLHigh Cholesterol: greater than 239 mg/dL LDL Cholesterol Calculated 53 <100 mg/dL [facility] Comment:Desirable LDL: less than 100 mg/dLNear Optimal/Above Optimal LDL: 110- 129 mg/dLBorderline High LDL: 130-159 mg/dLHigh LDL: 160-189 mg/dLVery High LDL: greater than or equal to 190 mg/dL HDL Cholesterol 49 >40 mg/dL [facility] Comment:Desirable HDL: great er than 40 mg/dL Note: This HDL assay may give artificially low results in patients with liver disease. Blood Venous blood specimen / Unknown 04/30/2025 9:34 AM EDT 04/30/2025 2:51 PM EDT us Katelyn Porter MD LAB BLOOD ORDERABLES Final Re sult [facility] [address] [place] [address] [phone] * BI Mammogram Screening Tomosynthesis Bilateral (12/07/2024 8:45 AM EST) Anatomical Region Laterality Modality Breast Bilateral Mammography 12/07/2024 8:45 AM EST Narrative 12/13/2024 5:53 PM EST [address] [place] [address] Mammography Report Signed Patient: Nicol Ha MR#: [id number] : 1960 Acct:[id number] Age/Sex: 64 / F ADM Date: 12/07/24 Loc: HO.[facility] Attending Dr: Katelyn Porter MD Ordering Physician: Katelyn Porter MD Results: 1Nega tive Date of Service: 12/07/24 Follow Up: 1 Year From Orig inal Mammogram Procedure(s): MM tomosynthesis screening BI Accession Number(s): [id number] cc: Katelyn Porter MD EXAMINATION: MM SCREENING DIGITAL BREAST TOMOSYNTHESIS, BILATERAL CLINICAL INFORMATION: Screening. Asymptomatic. COMPARISON: Mammography: Comparison is made with available priors TECHNIQUE: Digital breast mammography with tomosynthesis is performed in both the craniocaudal and mediolateral oblique views along with computer-aided detection (CAD). FINDINGS: There are scattered areas of fibroglandular density (ACR BI-RADS breast composition Category b). There are no significant masses, abnormal calcifications, or other abnormalities. MM/MM tomosynthesis screening BI IMPRESSION: No mammographic evidence of malignancy. ASSESSMENT: BI-RADS BI-RADS 1 - Negative RECOMMENDATION: Routine annual mammography screening. 1 year F/U This examination should not preclude the clinical evaluation of a suspicious palpable abnormality. This patient's information was entered into a reminder system with a target due date for their next mammogram. Electronically signed by: Elenita Fortune DO 12/13/2024 05:51 PM EST Dictated By: Eelnita Fortune DO Signed By: <Electronically signed by Elenita Fortune DO in OV> 12/13/24 1751 DD/ 0845 TD/TT: 12/07/24 0906 Tip Mender: Procedure Note Donotuseinterpreter, Image - 12/13/[address] [place] [address] Mammography Report Signed Patient: Judy Ha#: [id number] : 9Acct:[id number] Age/Sex: 64 / FADM Date: 12/07/24 Loc: HO.MAMMO Attending Dr: Katelyn Porter MD Ordering Physician: Katelyn Porter MDResults: 1Nega tive Date of Service: 12/07/24Follow Up: 1 Year From Orig inal Mammogram Procedure(s): MM tomosynthesis screening BI Accession Number(s): [id number] cc: Katelyn Porter MD EXAMINATION: MM SCREENING DIGITAL BREAST TOMOSYNTHESIS, BILATERAL CLINICAL INFORMATION: Screening. Asymptomatic. COMPARISON: Mammography: Comparison is made with available priors TECHNIQUE: Digital breast mammography with tomosynthesis is performed in both the craniocaudal and mediolateral oblique views along with computer-aided detection (CAD). FINDINGS: There are scattered areas of fibroglandular density (ACR BI-RADS breast composition Category b). There are no significant masses, abnormal calcifications, or other abnormalities. MM/MM tomosynthesis screening BI IMPRESSION: No mammographic evidence of malignancy. ASSESSMENT: BI-RADS BI-RADS 1 - Negative RECOMMENDATION: Routine annual mammography screening. 1 year F/U This examination should not preclude the clinical evaluation of a suspicious palpable abnormality. This patient's information was entered into a reminder system with a target due date for their next mammogram. Electronically signed by: Elenita Fortune DO 12/13/2024 05:51 PM [facility] Dictated By: Elenita Fortune DO Signed By: <Electronically signed by Elenita Fortune DO in OV> 12/13/24 1751 DD/ 0845 TD/TT: 12/07/24 0906 Tip Mender: us Katelyn Porter MD [facility] [place] PROCEDURES Edited Resu lt - Final * Hepatitis C Antibody with Reflex to HCV, RNA, Quantitative, Real-Time PCR (03/20/2023 9:20 AM EDT) Hepatitis C Antibody NON-REACT HERNAN NON-REACT HERNAN [facility] Index 0.08 <1.00 [facility] Comment: HCV antibody was non-reactive. There is no laboratory evidence of HCV infection. In most cases, no further action is required. However, if recent HCV exposure is suspected, a test for HCV RNA (test code 91427) is suggested. For additional information please refer to http://education.PayAllies/faq/CIK09x6 (This link is being provided for informational/ educational purposes only.) Blood Venous blood specimen / Unknown 03/20/2023 9:20 AM EDT 03/20/2023 9:20 AM EDT Narrative [facility] - 03/21/2023 3:01 AM EDT FASTING:YES FASTING: YES us Katelyn Porter MD LAB BLOOD ORDERABLES Final Re sult [facility] [address], [place] [address] [employer] [place] [employer] [address] [place] [address] from Last 3 Months or Most Recently Relevant to Health Maintenance Insurance [facility] STANDARD FOR[facility]LY [facility] SKILLED NURSING OPTIONS (O D-SNP) [place], [place] [facility] MEDICAID [facility] ADULT [facility] Care Teams Speech Language Assistant Relationship Specialty Start Date End Date Katelyn Porter MD [address] [place] [address] PCP - General Family Medicine 02/08/23 [facility] Surgeon Orthopaedic Surgery 01/15/24
== END 2025-09-06 12:31 | disposition home or self-care (01) ==
LOC: HO.HSM 11:54
PROVIDERS: PCP Family Medicine; Visit Provider Registered Nurse
DX: G25.81 Restless legs syndrome (principal); G47.00 Insomnia, unspecified; R41.3 Other amnesia; M79.7 Fibromyalgia
CPT/HCPCS: 99214

== ENCOUNTER → 2025-09-06 11:53 | Outpatient (BNVA) | payer OTHER, SELFPAY | PROVIDERS: PCP Family Medicine; Visit Provider Registered Nurse | DX: G25.81 Restless legs syndrome (principal); G47.00 Insomnia, unspecified; R41.3 Other amnesia; M79.7 Fibromyalgia | CPT/HCPCS: 99212 ==

== ENCOUNTER 2025-10-21 08:53 | Outpatient (REF) | payer OTHER, SELFPAY | END 2025-10-21 08:54 | disposition home or self-care (01) | LOC: HO.HOSX 08:53 | PROVIDERS: Visit Provider Physician Assistant | DX: Z13.89 Encounter for screening for other disorder (principal) ==

== ENCOUNTER → 2025-10-22 07:20 | Outpatient (BNV) | payer OTHER, SELFPAY | PROVIDERS: PCP Family Medicine; Visit Provider Radiology Diagnostic Ultrasound | DX: M75.32 Calcific tendinitis of left shoulder (principal); M19.012 Primary osteoarthritis, left shoulder | CPT/HCPCS: 73221 ==

== ENCOUNTER 2025-10-22 07:22 | Outpatient (REF) | payer OTHER, SELFPAY ==
--- OUTSIDE RECORDS SUMMARY | 2025-10-20 10:00 | XMS_ITS | Encounter Summary ---
Author Organization [employer] Address [address] 7[address] [place] [address] Care Team Providers Care Train Director Name Role Phone Katelyn Porter MD Primary Care Provider [phone] Reason for Visit * Reason Comments VENDER Encounter Details Date Type Department Care Team (Latest Contact Info) Description 10/20/2025 10:00 AM EST Clinical Support [facility] MED & PEDS [address] [place] [address] Chelsey Sams, RN [address] [place], [place] Long-term current use of opiate analgesic (Primary Dx) Social History Tobacco Use Types [...] Answer Date Recorded Patient Health Questionnaire-9 Score 15 10/06/2025 Patient Health Questionnaire-9 Score 15 10/06/2025 Last PHQ-9: Questionnaire Data Not on file 1 12/06/2024 Housing Stability Answer Date Recorded What is [...] Answer Date Recorded Patient Health Questionnaire-2 Score 5 10/06/2025 Internet Access Answer Date Recorded Internet Access Q1 Yes 04/30/2025 Internet Access Q2 Not on file 04/30/2025 Comments No Sex and Gender Information Value Date Recorded Sex Assigned at Female 10/01/2022 10:21 AM EDT Legal Sex Female 10:21 AM EDT Gender Identity Female 10/01/2022 10:21 AM EDT Sexual Orientation Straight 10/01/2022 10 :21 AM EDT documented as of this encounter Functional Status * Over the last 2 weeks, how often have you been bothered by any of the following problems? Question Answer Date of Assessment Author Feeling nervous, anxious, or on edge 1 10/20/2025 10:33 AM Chelsey Camacho RN Not being able to stop or co ntrol worrying 3 10/20/2025 10:33 AM Chelsey Camacho RN Worrying too much about diff erent things 1 10/20/2025 10:33 AM Chelsey Camacho RN Trouble relaxing 3 10/20/2025 10:33 AM Chelsey Camacho RN Being so restless that it is hard to sit still 2 10/20/2025 10:33 AM Chelsey Camacho RN Becoming easily annoyed or irritable 2 10/20/2025 10:33 AM Chelsey Camacho RN Feeling afraid as if somethi ng awful might happen 1 10/20/2025 10:33 AM Chelsey Camacho RN JOAN-7 Total Score 13 10/20/2025 10:33 AM Chelsey Camacho RN documented as of this encounter Progress Notes * Chelsey Sams RN - 10/20/2025 10:00 AM EST SUBJECTIVE: Nicol Ha is a 65 y.o. year old female who presents for VENDER Preferred language for medical information: Lao Interpreted needed: No Nicol Ha does report adherence to Hydrocodone (Vicodin/[place]) 5-300 mg, take 1 tablet every 6hours PRN, last refilled 10/07/25. The patient last took Hydrocodone (Vicodin/[place]) on: 10/20/25 Medication is: 40% % effective at alleviating pain. OBJECTIVE: BRUSHER OPERATOR checked: 10/20/2025 .Pill count not performed as patient states forgot to bring pills with her as it is her first VENDER visit. Patient reminded to bring pills to all the VENDER visits/ when requested, verbalized understanding. States has a full bottle at home and takes it usually bid, only PRN. 2 expected. Vital Signs Pain Score: 8 Pain Loc: Back Pain Education: Yes Additional pain site: L shoulder, L hip radiating to L leg Last PCP visit: 10/06/25 BPI completed on: 10/20/2025 , pain severity score: 6, activity interference score: 6 Opioid risk tool completed, moderate risk. Controlled substance agreement signed: Controlled Substance Agreement 10/20/2025 VENDER Tier: 1 Current Medications[1] Smoking status: Denies ETOH use: Denies Illicit substances: Denies Marijuana use: Denies, Lab Results Component Value Date POCTHC Positive (A) 10/20/2025 POCCOCAINEUR Negative 10/20/2025 POCOPIATEUR Positive (A) 10/20/2025 DOAUR Negative 10/20/2025 POCAMPHETAMI Negative 10/20/2025 POCBENZODIUR Negative 10/20/2025 POCBARBSCRN Negative 10/20/2025 POCMETHADOUR Negative 10/20/2025 POCBUPSCRN Negative 10/20/2025 POCTCAUR Negative 10/20/2025 POCMDMAUR Negative 10/20/2025 POCOXYCODONE Negative 10/20/2025 POCPHENCYCUR Negative 10/20/2025 PROPOXUR Negative 10/20/2025 FENTANYLURIN Negative 10/20/2025 ASSESSMENT: Encounter Diagnosis Name Primary? Long-term current use of opiate analgesic Yes PLAN: Information on pain group given: Yes Information on acupuncture given: Yes Narcan education provided: Yes Narcan prescription: inactive- refill request submitted to provider Nicol Ha will continue taking medication as prescribed and follow up at the next [facility] visit orsooner if needed. Nciol M Aceprasanna has verbalized understanding of care plan. Future Appointments Date Time Provider Department [place] 10/26/2025 11:00 AM Deb Tian [facility] 11/29/2025 11:30 AM Katelyn Porter MD [facility] 12/08/2025 9:30 AM Chelsey Sams [address] [facility] Chelsey Sams RN [1] Current Outpatient Medications: albuterol (Ventolin HFA) 108 (90 Base) MCG/ACT inhaler, INHALE 2 PUFFS BY MOUTH EVERY FOUR HOURS ASNEEDED FOR WHEEZING OR SHORTNESS OF BREATH, Disp: 18 g, Rfl: 2 amLODIPine (Norvasc) 5 MG tablet, TAKE ONE TABLET EVERY DAY, Disp: 90 tablet, Rfl: 1 B Gdfdyvf-X-B-Zn (Stress Formula/Zinc, B-Compl,) tablet, TAKE ONE TABLET DAILY, Disp: 90 tablet, Rfl: 1 baclofen (Lioresal) 20 MG tablet, Take 0.5 tablets (10 mg) by mouth 3 times daily., Disp: 90 tablet, Rfl: 0 Blood Pressure kit, 1 each in the morning and at bedtime., Disp: 1 kit, Rfl: 0 Calcium Carb-Cholecalciferol 500-10 MG-MCG tablet, Take 1 tablet by mouth in the morning and at bedtime., Disp: , Rfl: diclofenac (Cataflam) 50 MG tablet, TAKE ONE TABLET THREE TIMES DAILY, Disp: 90 tablet, Rfl: 1 dicyclomine (Bentyl) 10 MG capsule, TAKE ONE CAPSULE THREE TIMES DAILY, Disp: 270 capsule, Rfl: 1 estradiol (Estrace) 0.5 MG tablet, Take 1.5 tablets (0.75 mg) by mouth Once per day., Disp: 135 tablet, Rfl: 1 famotidine (Pepcid) 20 MG tablet, TAKE TWO TABLETS AT BEDTIME, Disp: 60 tablet, Rfl: 11 fenofibrate (Triglide) 160 MG tablet, TAKE ONE TABLET EVERY MORNING, Disp: 90 tablet, Rfl: 1 ferrous gluconate (Fergon) 324 (37.5 Fe) MG tablet, TAKE ONE TABLET EVERY MORNING WITH BREAKFAST, Disp: 90 tablet, Rfl: 1 hydroCHLOROthiazide 12.5 MG tablet, TAKE TWO TABLETS EVERY MORNING, Disp: 180 tablet, Rfl: 1 HYDROcodone-acetaminophen ([place]) 5-325 MG tablet, TAKE ONE TABLET EVERY 6 HOURS NEEDED FOR SEVERE PAIN FOR UP TO 14 DAYS, Disp: , Rfl: hydrOXYzine HCl (Atarax) 10 MG tablet, TAKE ONE TABLET EVERY 24 HOURS NEEDED FOR ANXIETY, Disp: 90 tablet, Rfl: 5 Icosapent Ethyl (Vascepa) 1 g capsule, Take 2 capsules (2 g) by mouth with breakfast and with evening meal., Disp: 120 capsule, Rfl: 11 levothyroxine (Synthroid, Levoxyl) 88 MCG tablet, TAKE ONE TABLET EVERY MORNING BEFORE BREAKFAST, Disp: 90 tablet, Rfl: 1 loratadine (Claritin) 10 MG tablet, Take 1 tablet by mouth 1 (one) time each day., Disp: , Rfl: Lyrica 150 MG capsule, TAKE ONE CAPSULE THREE TIMES DAILY, Disp: 90 capsule, Rfl: 3 mirabegron ER (Myrbetriq) 50 MG 24 hr tablet, Take 1 tablet (50 mg) by mouth at bedtime. Do not crush, chew, or split., Disp: 30 tablet, Rfl: 11 Multiple Vitamins-Minerals (B complex-vitamin C-vitamin E-zinc) tablet, Take 1 tablet by mouth Onceper day., Disp: 90 tablet, Rfl: 1 multivitamin (Theragran) tablet, Take 1 tablet by mouth 1 (one) time each day., Disp: , Rfl: naloxone (Narcan) 4 mg/0.1 mL nasal spray, Administer 1 spray (4 mg) into affected nostril(s) if needed for opioid reversal. May repeat every 2-3 minutes if needed, alternating nostrils, until medical assistance becomes available., Disp: 2 each, Rfl: 2 pantoprazole (ProtoNix) 40 MG EC tablet, TAKE ONE TABLET TWICE DAILY. DO NOT BREAK, CRUSH, DISSOLVEOR CHEW, Disp: 180 tablet, Rfl: 1 pramipexole (Mirapex) 0.75 MG tablet, take one tablet every night at bedtime, Disp: , Rfl: rosuvastatin (Crestor) 40 MG tablet, TAKE ONE TABLET BY MOUTH EVERY MORNING, Disp: 90 tablet, Rfl: 1 Spacer/Aero-Holding Chambers (OptiChamber Tyra) misc, 1 each every 4 (four) hours if needed (asthma)., Disp: 1 each, Rfl: 0 triamcinolone (Kenalog) 0.5 % ointment, Apply topically 2 times daily., Disp: 90 g, Rfl: 0 vitamin E 180 MG (400 UNIT) capsule, TAKE ONE CAPSULE DAILY, Disp: 90 capsule, Rfl: 1 zolpidem (Ambien) 10 MG tablet, TAKE ONE CAPSULE AT BEDTIME NEEDED, Disp: , Rfl: documented in this encounter Plan of Treatment Upcoming Encounters Date Type Department Care Team (Late st Contact Info) Description 10/26/2025 11:00 AM EST Office Visit [facility] MEDICINE [address] [place] [address] Deb Tian CNM [address] [place] [address] 11/29/2025 11:30 AM EST Office Visit [facility] [address] [place] [address] Katelyn Porter MD [address] [place] [address] 12/08/2025 9:30 AM EST Clinical Support [facility] PED[facility] [address] [place] [address] Chelsey Sams, SURENDRA [address] [place] [address] documented as of this encounter Procedures Procedure Name Priority Date/Time Associated Diagnosis Comments POCT REENA-14 URINE DRUG SCREEN Routine 10/20/2025 10:51 AM EST Long-term current use of opiate analgesic documented in this encounter Results * (ABNORMAL) POCT REENA-14 Urine Drug Screen (10/20/2025 10:51 AM EST) THC Positive(A) Negative Cocaine Screen, Urine Negative Negative Opiate Screen, Urine Positive(A) Negative Comment:Rx Methamphetamine Screen Urine Negative Negative Amphetamine Screen, Urine Negative Negative Benzodiazepines Screen, Urine Negative Negative Barbiturate Screen, Urine Negative Negative Methadone Screen, Urine Negative Negative Buprenophine Screen, Urine Negative Negative TCA, Urine Negative Negative MDMA Urine Negative Negative ng/mL Oxycodone Screen, Urine Negative Negative Phencyclidine (PCP), Urine Negative Negative Propoxyphene, Urine Negative Negative Fentanyl, Urine Negative Negative Urine Urine specimen obtained by clean catch procedure / Unknown 10/20/2025 10:51 AM EST Narrative Chelsey Sams RN - 10/20/2025 10:51 AM EST . Internal Pass Control Lot# [id number] Exp: 09-07-26 us Katelyn Porter MD POINT OF CARE TEST ENTER/EDIT ORDERABLES Final Result documented in this encounter Visit Diagnoses Diagnosis Long-term current use of opiate analgesic- Primary Encounter for long-term (current) use of other medications Menopausal symptom- Primary documented in this encounter Additional Health Concerns Assessment Noted Time PHQ-9 Depression Total Score: 15 025 11:53 AM EST documented as of this encounter Care Teams Train Director Relationship Specialty Start Date End Date Katelyn Porter MD [address] [place] [address] PCP - General Family Medicine 02/08/23 [facility] Surgeon Orthopaedic Surgery 01/15/24 documented as of this encounter
--- NOTE | ~2025-10-22 | MR_ITS ---
EXAMINATION: MR SHOULDER WITHOUT CONTRAST, LEFT CLINICAL INFORMATION: Shoulder pain. COMPARISON: MRI 04/20/2019. X-ray 09/08/2025 TECHNIQUE: MRI of the shoulder without contrast was performed on a high-field scanner. FINDINGS: ROTATOR CUFF: Postsurgical changes with bone anchors in the greater tuberosity/ humeral head. There is thinning of the anterior fibers of the supraspinatus. No full-thickness tendon defect is seen. There is mild tendinosis of the supraspinatus and infraspinatus. No measurable tear is seen. Teres minor is intact. Mild-moderate distal subscapularis tendinosis. No muscle atrophy or fatty infiltration. BICEPS: Intact CORACOACROMIAL ARCH: The undersurface of the acromion is curved with no subacromial spur. Mild acromioclavicular arthritis. Trace fluid in the subacromial subdeltoid space. LABRUM/CAPSULE: No labral tear is seen. GLENOHUMERAL JOINT/MARROW: No fracture. No suspicious marrow signal changes. Postsurgical changes in the humeral head no significant glenohumeral joint effusion. No high-grade chondral loss. MR/MR shoulder LT wo con IMPRESSION: * Thinning of the anterior fibers of the supraspinatus. This could reflect postsurgical result. No full-thickness tendon defect or retraction is seen. Mild supraspinatus and infraspinatus tendinosis. * Mild-moderate distal subscapularis tendinosis. * Mild acromioclavicular arthritis. * Additional findings as above. Electronically signed by: Evan Bond MD 10/22/2025 08:25 AM JULIOCESAR
--- OUTSIDE RECORDS SUMMARY | 2025-10-22 07:30 | XMS_ITS | Encounter Summary ---
Author Organization [employer] Address [address] [place] [address] Care Team Providers Care Editorial Assistant Name Role Phone Katelyn Porter MD Primary Care Provider [phone] Reason for Visit * Reason Comments Med Refill Encounter Details Date Type Department Care Team ([facility] Contact Info) Description 09/07/2025 Refill [facility] [address] [place] [address] Katelyn Porter MD [address] [place] [address] Social History Tobacco Use Types Packs/Day Years [...] Description 10/26/2025 11:00 AM EST Office Visit [facility] [address] [place] [address] Deb Tian CNM [address] [place] [address] 11/29/2025 11:30 AM EST Office Visit [facility] & PEDS [address] [place] [address] Katelyn Porter MD [address] [place] [address] 12/08/2025 9:30 AM EST Clinical Support [facility]EDS [address] [place] [address] Chelsey Sams, SURENDRA [address] [place] [address] documented as of this encounter Visit Diagnoses Not on filedocumented in this encounter Additional Health Concerns Assessment Noted Time PHQ-9 Depression Total Score: 7 10/12/20 24 3:30 PM EST documented as of this encounter Care Teams Editorial Assistant Relationship Specialty Start Date End Date Katelyn Porter MD [address] [place] [address] PCP - General Family Medicine 02/08/23 [facility] Surgeon Orthopaedic Surgery 01/15/24 documented as of this encounter
--- OUTSIDE RECORDS SUMMARY | 2025-10-22 07:30 | XMS_ITS ---
Author Name [facility] Organization Unknown History of Medication Use Medication Directions Dispensed Refills Start Date End Date Stat us prednisone 08/27/2025 active Lyrica 06/10/2025 active pramipexole di-HCl 05/19/2025 ac tive dicyclomine HCl 05/10/2025 activ e famotidine 05/05/2025 active diclofenac potassium 03/31/2025 active hydrochlorothiazide 03/09/2025 a ctive Detrol LA 03/09/2025 active pantoprazole sodium 03/01/2025 a ctive fenofibrate 01/29/2025 active rosuvastatin calcium 12/28/2024 active zolpidem tartrate 12/16/2024 act adan levothyroxine sodium 12/10/2024 active amlodipine besylate 12/10/2024 a ctive DICLOFENAC active Ambien active Allergies Allergen Reaction Severity Comment Documented Date Source Statu s CODEINE UNKNOWN REACTION () CT_PUC Encounters Encounter Type Encounter Reason Primary Diagnosis Location Date Ambulatory TBE Pain in left shoulder Priori ty Urgent Care ([facility] Urgent Care [facility]) 09/08/2025 Care Team Organization Name Specialty Phone Email Start Date End Da te [facility] 09/08/2025 [facility] 09/08/2025
--- OUTSIDE RECORDS SUMMARY | 2025-10-22 07:30 | XMS_ITS | Encounter Summary ---
Author Organization [employer] Address [address]t [place] [address] Care Team Providers Care Pipefitter Welder Name Role Phone Perlita Dill MD Primary Care Provider [phone] Katelyn Porter MD Primary Care Provider [phone] Encounter Details Date Type Department Care Team (Latest Contact Info) Description 10/03/2022 Abstract [facility] CONVERSIONS Dental, Provider, DDS Social History Tobacco [...] Description 10/26/2025 11:00 AM EST Office Visit [facility] MEDICINE [address] [place] [address] Deb Tian CNM [address] [place] [address] 11/29/2025 11:30 AM EST Office Visit [facility] CHC MED & PEDS [address] [place] [address] Katelyn Porter MD [address] [place] [address] 12/08/2025 9:30 AM EST Clinical Support [facility] [address] [place] [address] Chelsey Sams, RN [address] [place] [address] documented as of this encounter Visit Diagnoses Not on filedocumented in this encounter Care Teams Pipefitter Welder Relationship Specialty Start Date End Date Perlita Dill MD [address] [place] [address] PCP - General Family Medicine 04/01/13 02/07/23 Katelyn Porter MD [address] [place] [address] PCP - General Family Medicine 02/08/23 [facility] Surgeon Orthopaedic Surgery 01/15/24 documented as of this encounter
--- OUTSIDE RECORDS SUMMARY | 2025-10-22 07:30 | XMS_ITS | Encounter Summary ---
Author Organization [employer] Address [address] [place] [address] Care Team Providers Care Transportation Director Name Role Phone Katelyn Porter MD Primary Care Provider [phone] Reason for Visit * Reason Comments Med Refill Encounter Details Date Type Department Care Team ([facility] Contact Info) Description 09/13/2025 Refill [facility] MED[facility]INE [address] [place] [address] Katelyn Porter MD [address] [place] [address] Social History Tobacco Use Types Packs/Day Years [...] Description 10/26/2025 11:00 AM EST Office Visit [facility] MED[facility]INE [address] [place] [address] Deb Tian CNM [address] [place] [address] 11/29/2025 11:30 AM EST Office Visit [facility] MED & PEDS [address] [place] [address] Katelyn Porter MD [address] [place] [address] 12/08/2025 9:30 AM EST Clinical Support [facility] MED & PEDS [address] [place] [address] Chelsey Sams, SURENDRA [address] [place] [address] documented as of this encounter Visit Diagnoses Not on filedocumented in this encounter Additional Health Concerns Assessment Noted Time PHQ-9 Depression Total Score: 7 10/12/20 24 3:30 PM EST documented as of this encounter Care Teams Transportation Director Relationship Specialty Start Date End Date Katelyn Porter MD [address] [place] [address] PCP - General Family Medicine 02/08/23 [facility] Surgeon Orthopaedic Surgery 01/15/24 documented as of this encounter
--- OUTSIDE RECORDS SUMMARY | 2025-10-22 07:30 | XMS_ITS | Encounter Summary ---
Author Organization [employer] Address [address]t [place] [address] Care Team Providers Care Medical Scheduler Name Role Phone Perlita Dill MD Primary Care Provider [phone] Katelyn Porter MD Primary Care Provider Encounter Details Date Type Department Care Team (Latest Contact Info) Description 08/14/2021 Abstract [facility] CONVERSIONS Dental, Provider, DDS Social History [...] Description 10/26/2025 11:00 AM EST Office Visit [facility] MEDICINE [address] [place] [address] Deb Tian CNM [address] [place] [address] 11/29/2025 11:30 AM EST Office Visit [facility] MED & PEDS [address] [place] [address] Katelyn Porter MD [address] [place] [address] 12/08/2025 9:30 AM EST Clinical Support [facility] [address] [place] [address] Chelsey Sams, RN [address] [place] [address] documented as of this encounter Visit Diagnoses Not on filedocumented in this encounter Care Teams Medical Scheduler Relationship Specialty Start Date End Date Perlita Dill MD [address] [place] [address] PCP - General Family Medicine 04/01/13 02/07/23 Katelyn Porter MD [address] [place] [address] PCP - General Family Medicine 02/08/23 [facility] Surgeon Orthopaedic Surgery 01/15/24 documented as of this encounter
--- OUTSIDE RECORDS SUMMARY | 2025-10-22 07:31 | XMS_ITS | Encounter Summary ---
Author Organization [employer] Address [address] [place] [address] Care Team Providers Care Dna Analyst Name Role Phone Katelyn Porter MD Primary Care Provider [phone] Reason for Visit * Reason Comments Med Refill Encounter Details Date Type Department Care Team ([facility] Contact Info) Description 06/14/2025 Refill [facility] MED & PEDS [address] [place], [place] [phone] Katelyn Porter MD [address] [place] [address] Arthritis Social History Tobacco Use Types Packs/Day [...] Description 10/26/2025 11:00 AM EST Office Visit [facility] MEDICINE [address] [place] [address] Deb Tian CNM [address] [place] [address] 11/29/2025 11:30 AM EST Office Visit [facility] MED & PEDS [address] [place] [address] Katelyn Porter MD [address] [place] [address] 12/08/2025 9:30 AM EST Clinical Support [facility] MED & PEDS [address] [place] [address] Chelsey Sams, SURENDRA [address] [place] [address] documented as of this encounter Visit Diagnoses Diagnosis Arthritis Unspecified arthropathy, site unspecified Menopausal symptom- Primary documented in this encounter Additional Health Concerns Assessment Noted Time PHQ-9 Depression Total Score: 7 10/12/20 24 3:30 PM EST documented as of this encounter Care Teams Dna Analyst Relationship Specialty Start Date End Date Katelyn Porter MD [address] [place] [address] PCP - General Family Medicine 02/08/23 [facility] Surgeon Orthopaedic Surgery 01/15/24 documented as of this encounter
--- OUTSIDE RECORDS SUMMARY | 2025-10-22 07:31 | XMS_ITS | Encounter Summary ---
Author Organization [employer] Address [address] [place] [address] Care Team Providers Care Hand Tube Bender Name Role Phone Katelyn Porter MD Primary Care Provider [phone] Reason for Visit * Reason Onset Date Comments rs appt 08/30/2023 Encounter Details Date Type Department Care Team ([facility] st Contact Info) Description 08/30/2023 Telephone [facility] [address] [place] [address] Rica Hernandez BDS rs appt Social History [...] Description 10/26/2025 11:00 AM EST Office Visit [facility] MEDICINE [address] [place] [address] Deb Tian CNM [address] [place] [address] 11/29/2025 11:30 AM EST Office Visit [facility] MED & PEDS [address] [place] [address] Katelyn Porter MD [address] [place] [address] 12/08/2025 9:30 AM EST Clinical Support [facility] MED & PEDS [address] [place] [address] Chelsey Sams, RN [address] [place] [address] documented as of this encounter Visit Diagnoses Not on filedocumented in this encounter Additional Health Concerns Assessment Noted Time PHQ-9 Depression Total Score: 3 05/16/20 23 11:16 AM EDT documented as of this encounter Care Teams Hand Tube Bender Relationship Specialty Start Date End Date Katelyn Porter MD [address] [place] [address] PCP - General Family Medicine 02/08/23 [facility] Surgeon Orthopaedic Surgery 01/15/24 documented as of this encounter
--- OUTSIDE RECORDS SUMMARY | 2025-10-22 07:31 | XMS_ITS | Encounter Summary ---
Author Organization [employer] Address [address] 7[address] [place] [address] Care Team Providers Care Shield Runner Name Role Phone Katelyn Porter MD Primary Care Provider [phone] Encounter Details Date Type Department Care Team (Latest Contact Info) Description 10/20/2025 Travel Social History Tobacco Use Types Packs/Day Years [...] Camacho RN documented as of this encounter Plan of Treatment Upcoming Encounters Date Type Department Care Team (Late st Contact Info) Description 10/26/2025 11:00 AM EST Office Visit [facility] [address] [place], [place] [phone] Deb Tian CNM [address] [place] [address] 11/29/2025 11:30 AM EST Office Visit [facility] [address] [place] [address] Katelyn Porter MD 505 [place] [address] 12/08/2025 9:30 AM EST Clinical Support [facility] [address] [place] [address] Chelsey Sams, RN [address] [place] [address] documented as of this encounter Visit Diagnoses Not on filedocumented in this encounter Additional Health Concerns Assessment Noted Time PHQ-9 Depression Total Score: 15 025 11:53 AM EST documented as of this encounter Care Teams Shield Runner Relationship Specialty Start Date End Date Katelyn Porter MD [address] [place] [address] PCP - General Family Medicine 02/08/23 [facility] Surgeon Orthopaedic Surgery 01/15/24 documented as of this encounter
--- OUTSIDE RECORDS SUMMARY | 2025-10-22 07:31 | XMS_ITS | Clinical Summary ---
Author Organization [employer] Address [address] [facility] 7t [place] [address] Care Team Providers Care Pr Intern Name Role Phone Katelyn Porter MD Primary Care Provider [phone] Allergies Active Allergy Reactions Criticality Noted Date Comments Codeine Other reaction(s): unspecified Gluten Meal 11/19/2022 Lactose 11/19/2022 Lisinopril Swelling 11/11/2024 Milnacipran 11/15/2014 Other reaction(s): GI Problems Medications * This document contains information received from the source organization and may not represent a complete record from that organization. loratadine (Claritin) 10 MG tablet Take 1 tablet by mouth 1 (one) time each day. 016 Active multivitamin (Theragran) tablet Take 1 tablet by mouth 1 (one) time each day. Active Calcium Carb-Cholecalcife rol 500-10 MG-MCG tablet Take 1 tablet by mouth in the morning and at bedtime. Active Blood Pressure kitIndications:In fluenza-like symptoms 1 each in the morning and at bedtime. 1 kit 022 Active Spacer/Aero-Holdi ng Chambers (OptiChamber Tyra) miscIndications:I nfluenza-like symptoms 1 each every 4 (four) hours if needed (asthma). 1 each 022 Active hydrOXYzine HCl (Atarax) 10 MG tabletIndications :Anxiety TAKE ONE TABLET EVERY 24 HOURS NEEDED FOR ANXIETY 90 tablet 5 023 Active Icosapent Ethyl (Vascepa) 1 g capsule Take 2 capsules (2 g) by mouth with breakfast and with evening meal. 120 capsule 11 023 Active Multiple Vitamins-Minerals (B complex-vitamin C-vitamin E-zinc) tablet Take 1 tablet by mouth Once per day. 90 tablet 1 024 Active B Lijsgff-S-N-Zn (Stress Formula/Zinc, B-Compl,) tablet TAKE ONE TABLET DAILY 90 tablet 1 024 Active levothyroxine (Synthroid, Levoxyl) 88 MCG tablet TAKE ONE TABLET EVERY MORNING BEFORE BREAKFAST 90 tablet 1 025 Active hydroCHLOROthiazi de 12.5 MG tabletIndications :Primary hypertension TAKE TWO TABLETS EVERY MORNING 180 tablet 1 025 Active zolpidem (Ambien) 10 MG tablet TAKE ONE CAPSULE AT BEDTIME NEEDED 025 Active baclofen (Lioresal) 20 MG tablet Take 0.5 tablets (10 mg) by mouth 3 times daily. 90 tablet 025 Active famotidine (Pepcid) 20 MG tablet TAKE TWO TABLETS AT BEDTIME 60 tablet 11 025 Active dicyclomine (Bentyl) 10 MG capsule TAKE ONE CAPSULE THREE TIMES DAILY 270 capsule 1 10/19/20 25 3:16 PM EST 025 Active estradiol (Estrace) 0.5 MG tablet Take 1.5 tablets (0.75 mg) by mouth Once per day. 135 tablet 1 10/14/20 25 11:32 AM EST 025 Active rosuvastatin (Crestor) 40 MG tabletIndications :Hyperlipidemia, unspecified hyperlipidemia type TAKE ONE TABLET BY MOUTH EVERY MORNING 90 tablet 1 025 Active ferrous gluconate (Fergon) 324 (37.5 Fe) MG tablet TAKE ONE TABLET EVERY MORNING WITH BREAKFAST 90 tablet 1 025 Active vitamin E 180 MG (400 UNIT) capsule TAKE ONE CAPSULE DAILY 90 capsule 1 025 Active Lyrica 150 MG capsuleIndication s:Arthritis TAKE ONE CAPSULE THREE TIMES DAILY 90 capsule 3 025 Active fenofibrate (Triglide) 160 MG tablet TAKE ONE TABLET EVERY MORNING 90 tablet 1 025 Active albuterol (Ventolin HFA) 108 (90 Base) MCG/ACT inhalerIndication s:Influenza-like symptoms INHALE 2 PUFFS BY MOUTH EVERY FOUR HOURS NEEDED FOR WHEEZING OR SHORTNESS OF BREATH 18 g 2 Active pantoprazole (ProtoNix) 40 MG EC tablet TAKE ONE TABLET TWICE DAILY. DO NOT BREAK, CRUSH, DISSOLVE OR CHEW 180 tablet 1 Active amLODIPine (Norvasc) 5 MG tablet TAKE ONE TABLET EVERY DAY 90 tablet 1 Active pramipexole (Mirapex) 0.75 MG tablet take one tablet every night at bedtime Active triamcinolone (Kenalog) 0.5 % ointment Apply topically 2 times daily. 90 g Active mirabegron ER (Myrbetriq) 50 MG 24 hr tabletIndications :Urinary incontinence, unspecified type Take 1 tablet (50 mg) by mouth at bedtime. Do not crush, chew, or split. 30 tablet 11 10/19/20 25 3:16 PM EST 2025 Active diclofenac (Cataflam) 50 MG tablet TAKE ONE TABLET THREE TIMES DAILY 90 tablet 1 Active HYDROcodone-aceta minophen (Lacona) 5-325 MG tablet TAKE ONE TABLET EVERY 6 HOURS NEEDED FOR SEVERE PAIN FOR UP TO 14 DAYS Active naloxone (Narcan) 4 mg/0.1 mL nasal spray Administer 1 spray (4 mg) into affected nostril(s) if needed for opioid reversal. May repeat every 2-3 minutes if needed, alternating nostrils, until medical assistance becomes available. 2 each 2 2025 Active diclofenac (Cataflam) 50 MG tablet TAKE ONE TABLET BY MOUTH THREE TIMES DAILY 90 tablet 1 2024 Discontinued HYDROcodone-aceta minophen (Vicodin) 5-300 MG tabletIndications :Acute pain of left shoulder Take 1 tablet by mouth every 6 (six) hours if needed for severe pain. 15 tablet 025 2024 Discontinued(R eorder (will not trigger notification to Pharmacy)) HYDROcodone-aceta minophen (Vicodin) 5-300 MG tabletIndications :Acute pain of left shoulder Take 1 tablet by mouth every 8 (eight) hours if needed for severe pain for up to 7 days. 21 tablet 2024 Discontinued(R eorder (will not trigger notification to Pharmacy)) HYDROcodone-aceta minophen (Lacona) 5-325 MG tablet Take 1 tablet by mouth every 8 (eight) hours if needed for severe pain. 2024 Discontinued(T herapy completed) HYDROcodone-aceta minophen (Vicodin) 5-300 MG tabletIndications :Acute pain of left shoulder Take 1 tablet by mouth every 6 (six) hours if needed for severe pain for up to 14 days. 56 tablet 2024 Discontinued Active Problems Problem Noted Date Diagnosed Date Long-term current use of opiate analgesic 2024 Acute pain of left shoulder 09/20/2025 Urinary incontinence 09/20/2025 Poor balance 04/30/2025 Assessment & Plan (04/30/2025 11:28 AM EDT): Patient reports worsening fibromyalgia symptoms, particularly affecting her legs. She experiences frequent falls in the bathroom due to balance issues and leg weakness. Current treatment with Lyrica is becoming less effective. Plan: - Prescribe shower chair through [facility] for fall prevention The patient experiences impaired [...] and advised to change treatment. Referral to Covered [facility]. Prescribing Pepcid and Protonix. Relevant Medications Famotidine [...] normal blood pressure reading of 120/- at student driving instructor's office. However, she had an elevated reading [...] treatment plan and eventual need to see Web Application Dev Specialist for further treatment. Will revisit next appointment. [...] this moment will send guaifenesin. Recommended continue honey, rtc with PCP Assessment & Plan (11/19/2022 12:50 PM EST): Acute. Discussed supportive care. Normal lung examination. Encounters Date Type Department Care Team Description 10/20/2025 10:00 AM EST Clinical Support [facility] [address] [place] [address] Chelsey Sams, SURENDRA Long-term current use of opiate analgesic (Primary Dx) 10/20/2025 Refill [facility] [address] [place] [address] Chelsey Sams RN 10/20/2025 Telephone [facility] [address] [place] [address] Chelsey Sams RN 10/20/2025 Travel 10/14/2025 Telephone [facility] [address] [place] [address] Katelyn Porter MD Due for Rescreen Cologuard 10/11/2025 Telephone [facility] [address] [place] [address] Katelyn Porter MD Med Refill 10/11/2025 Refill [facility] [address] [place] [address] Katelyn Porter MD 10/06/2025 10:30 AM EST Office Visit [facility] [address] [place] [address] Katelyn Porter MD Menopausal symptom (Primary Dx); Acute pain of left shoulder; Dietary counseling; Exercise counseling; Overweight 10/06/2025 Travel 10/05/2025 Telephone [facility] [address] [place] [address] Katelyn Porter MD Chart Prep 09/28/2025 Telephone [facility] [address] [place] [address] Zamzam Nelson, SURENDRA 09/28/2025 Telephone [facility] [address] [place] [address] Katelyn Porter MD Medication Question 09/27/2025 Refill [facility] [address] [place] [address] Chelsey Sams, structures assembler pain of left shoulder 09/27/2025 Telephone [facility] [address] [place] [address] Katelyn Porter MD 09/20/2025 10:15 AM EDT Office Visit [facility] [address] [place] [address] Katelyn Porter MD Acute pain of left shoulder (Primary Dx); Urinary incontinence, unspecified type 09/20/2025 Travel 09/14/2025 Refill [facility] [address] [place] [address] Katelyn Porter MD 09/13/2025 Refill [facility] [address] [place] [address] Katelyn Porter MD 09/07/2025 Refill [facility] [address] [place] [address] Katelyn Porter MD 08/26/2025 Refill [facility] [address] [place] [address] Katelyn Porter MD Influenza-like symptoms 08/26/2025 Telephone [facility] [address] [place] [address] Katelyn Porter MD Nurse Triage 08/20/2025 Refill [facility] [address] [place] [address] Katelyn Porter MD 07/29/2025 Refill [facility] [address] [place] [address] Yonny Joiner MD 07/23/2025 Telephone [facility] [address] [place] [address] Katelyn Porter MD 07/22/2025 Refill [facility] [address] [place] [address] Katelyn Porter MD Arthritis 07/22/2025 Refill [facility] [address] [place] [address] Zaki Doty MD Arthritis from Last 3 Months Immunizations Immunization Administration [...] Sign Reading Time Taken Comments Blood Pressure 154/62 10/06/2025 10:50 AM EST Pulse 78 10/06/2025 10:40 AM EST Temperature 36.2 C (97.2 F) 10/06/2025 10:40 AM EST Respiratory Rate 20 10/06/2025 10:40 AM EST Oxygen Saturation 97% 10/06/2025 10:40 AM EST Inhaled Oxygen Concentration - - Weight 62.3 kg (137 lb 6.4 oz) 10/06/2025 10:40 AM EST Height 157.5 cm (5' 2 ) 10/06/2025 10:40 AM EST Body Mass Index 25.13 10/06/2025 10:40 AM EST Plan of Treatment Upcoming Encounters Date Type Department Care Team (Late st Contact Info) Description 10/26/2025 11:00 AM EST Office Visit [facility] [address] [place] [address] Deb Tian CNM [address] [place] [address] 11/29/2025 11:30 AM EST Office Visit [facility] [address] [place] [address] Katelyn Porter MD [address] [place] [address] 12/08/2025 9:30 AM EST Clinical Support [facility] [address] [place] [address] Chelsey Sams, RN [address] [place] [address] Health Maintenance Due Date Last Done Comments CT Colonography 1960 Colonoscopy 1960 FIT 1960 Sigmoidoscopy 1960 Pneumococcal Vaccine: 50+ Years (1 of 1 - PCV) 2009 FOBT 08/02/2023 08/02/2022 Dental Oral Exam 03/19/2024 09/17/2023, 01/2022, 05/15/2021 Dental Prophylaxis 05/29/2024 11/27/2023, 08/14/2021 Dental X-Ray: Bitewings 09/18/2024 09/17/20, 10/03/2022, 05/15/2021 Colorectal Cancer Screening 08/02/2025 FIT DNA/Cologuard 08/02/2025 08/02/2022 Depression Monitoring 04/05/2026 10/06/2025, 025 Alcohol/Substance Use Screening 04/30/2026 04/30/2025 SDOH Screening 04/30/2026 04/30/2025 Influenza Vaccine (#1) 2026 08/13/2013 Postp oned from 08/02/2025 (Patient Refused) COVID-19 Vaccine ( season) 2026 10/25/2021, 04/10/2021, 03/20/2021 Postponed from 08/02/2025 (Patient Refused) Dental X-Ray: Full Mouth 10/09/2026 023, 09/17/2023, 07/28/2021, Additional history exists Tobacco Screening 10/14/2026 10/14/2025 Mammogram 12/07/2026 12/07/2024, 04/2024, 11/30/2022, Additional history exists DTaP/Tdap/Td Vaccines [...] EST Long-term current use of opiate analgesic LIPID PANEL, STANDARD Routine 04/30/2025 9:34 AM [...] Relevant to Health Maintenance Results * (ABNORMAL) POCT REENA-14 Urine Drug [...] AM EST . Internal Pass Control Lot# [id number] Exp: 09-07-26 us Katelyn Porter MD POINT OF CARE TEST ENTER/EDIT ORDERABLES Final Result * (ABNORMAL) Lipid Panel, Standard (04/30/2025 9:34 AM EDT) Triglycerides 291(H) <150 mg/dL [facility] Comment:Desirable Triglyceri de: less than 150 mg/dLBorderline High Triglyceride 150-199 mg/dLHigh Triglyceride: 200-499 mg/dLVery High Triglyceride: greater than or equal to 5OO mg/dL Cholesterol 160 <200 mg/dL [facility] Comment:Desirable Cholestero l: less than 200 mg/dLBorderline High Cholesterol: 200-239 mg/dLHigh Cholesterol: greater than 239 mg/dL LDL Cholesterol Calculated 53 <100 mg/dL [facility] Comment:Desirable LDL: less than 100 mg/dLNear Optimal/Above Optimal LDL: 110- 129 mg/dLBorderline High LDL: 130-159 mg/dLHigh LDL: 160-189 mg/dLVery High LDL: greater than or equal to 190 mg/dL HDL Cholesterol 49 >40 mg/dL [facility] Comment:Desirable HDL: great er than 40 mg/dL Note: This HDL assay may give artificially low results in patients with liver disease. Blood Venous blood specimen / Unknown 04/30/2025 9:34 AM EDT 04/30/2025 2:51 PM EDT us Katelyn Porter MD LAB BLOOD ORDERABLES Final Re sult [facility] [address] [place] [address] [phone] * BI Mammogram Screening Tomosynthesis Bilateral (12/07/2024 8:45 AM EST) Anatomical Region Laterality Modality Breast Bilateral Mammography 12/07/2024 8:45 AM EST Narrative 12/13/2024 5:53 PM EST [address] [place] [address] Mammography Report Signed Patient: Nicol Ha MR#: [id number] : 1960 Acct:[id number] Age/Sex: 64 / F ADM Date: 12/07/24 Loc: JON Attending Dr: Katelyn Porter MD Ordering Physician: Katelyn Porter MD Results: 1Nega tive Date of Service: 12/07/24 Follow Up: 1 Year From Orig inal Mammogram Procedure(s): MM tomosynthesis screening BI Accession Number(s): [id number] cc: Katelyn Porter MD EXAMINATION: MM SCREENING [...] Elenita Fortune DO 12/13/2024 05:51 PM EST RP Dictated By: Elenita Fortune DO Signed By: <Electronically signed by Elenita Fortune DO in OV> 12/13/24 1751 DD/ 0845 TD/TT: 12/07/24 0906 Regional Business Development Manager: Procedure Note Donotuseinterpreter, Image - 12/13/2024 Jorge Luis [facility] [address] [place] [address] Mammography Report Signed Patient: Mitchell HaR#: [id number] : 1960cct:[id number] Age/Sex: 64 / FADM Date: 12/07/24 Loc: JON Attending Dr: Katelyn Porter MD Ordering Physician: Katelyn Porter MDResults: 1Nega tive Date of Service: 12/07/24Follow Up: 1 Year From Orig inal Mammogram Procedure(s): MM tomosynthesis screening BI Accession Number(s): [id number] cc: Katelyn Porter MD EXAMINATION: MM SCREENING [...] Elenita Fortune DO 12/13/2024 05:51 PM EST RP Dictated By: Elenita Fortune DO Signed By: <Electronically signed by Elenita Fortune DO in OV> 12/13/24 1751 DD/ 0845 TD/TT: 12/07/24 0906 Regional Business Development Manager: Katelyn Porter MD IMG BI PROCEDURES Edited Resu lt - Final * Hepatitis C Antibody with Reflex to HCV, RNA, Quantitative, Real-Time PCR (03/20/2023 9:20 AM EDT) Hepatitis C Antibody NON-REACT HERNAN NON-REACT HERNAN Meeps Index 0.08 <1.00 Meeps Comment: HCV antibody was non-reactive. There is no laboratory evidence of HCV infection. In most cases, no further action is required. However, if recent HCV exposure is suspected, a test for HCV RNA (test code 73639) is suggested. For additional information please refer to http://education.[employer]/faq/GBJ06i6 (This link is being provided for informational/ educational purposes only.) Blood Venous blood specimen / Unknown 03/20/2023 9:20 AM EDT 03/20/2023 9:20 AM EDT Narrative [facility] - 03/21/2023 3:01 AM EDT FASTING:YES FASTING: YES Katelyn Porter MD LAB BLOOD ORDERABLES Final Re sult [facility] [address] [place] [address] [employer] [address] [place] [address] from Last 3 Months or Most Recently Relevant to Health Maintenance Insurance [facility] STANDARD [facility] RETIREMENT OPTIONS (HMO D-SNP) [place] STAND ADULT [facility] Care Teams Pr Intern Relationship Specialty Start Date End Date Katelyn Porter MD [address] [place] [address] PCP - General Family Medicine 02/08/23 [facility] Surgeon Orthopaedic Surgery 01/15/24
--- OUTSIDE RECORDS SUMMARY | 2025-10-22 07:31 | XMS_ITS | Encounter Summary ---
Author Organization [employer] Address [address] [facility] 7t [place] [address] Care Team Providers Care Manager Utilities Name Role Phone Perlita Dill MD Primary Care Provider [phone] Katelyn Porter MD Primary Care Provider [phone] Reason for Visit * Reason Onset Date Comments returning call 12/05/2022 Encounter Details Date Type Department Care Team ([facility] st Contact Info) Description 12/05/2022 Telephone [facility] [address] [place] [address] Perlita Dill MD [address] [place] [address] returning call Social History Tobacco Use Types [...] Description 10/26/2025 11:00 AM EST Office Visit [facility] [address] [place] [address] Deb Tian CNM [address] [place] [address] 11/29/2025 11:30 AM EST Office Visit [facility] [address] [place], [place] [phone] Katelyn Porter MD [address] [place], [place] [phone] 12/08/2025 9:30 AM EST Clinical Support [facility] [address] [place], [place] [phone] Chelsey Sams, SURENDRA [address] [place], [place] [phone] documented as of this encounter Visit Diagnoses Not on filedocumented in this encounter Care Teams Manager Utilities Relationship Specialty Start Date End Date Perlita Dill MD [address] [place] [phone] PCP - General Family Medicine 04/01/13 02/07/23 Katelyn Porter MD [address] [place] [address] PCP - General Family Medicine 02/08/23 [facility] Surgeon Orthopaedic Surgery 01/15/24 documented as of this encounter
--- OUTSIDE RECORDS SUMMARY | 2025-10-22 07:31 | XMS_ITS | Encounter Summary ---
Author Organization [employer] Address [address] [facility] [address] [address] [place] [address] Care Team Providers Care Shipping And Receiving Coordinator Name Role Phone Katelyn Porter MD Primary Care Provider Encounter Details Date Type Department Care Team ([facility] st Contact Info) Description 11/09/2024 Telephone [facility] [address] [place] [address] Katelyn Porter MD [address] [place] [address] Social History Tobacco Use Types Packs/Day Years [...] Description 10/26/2025 11:00 AM EST Office Visit [facility] [address] [place] [address] Deb Tian CNM [address] [place] [address] 11/29/2025 11:30 AM EST Office Visit [facility] [address] [place] [address] Katelyn Porter MD [address] [place] [address] 12/08/2025 9:30 AM EST Clinical Support [facility] [address] [place] [address] Chelsey Sams, SURENDRA [address] [place] [address] documented as of this encounter Visit Diagnoses Not on filedocumented in this encounter Additional Health Concerns Assessment Noted Time PHQ-9 Depression Total Score: 7 10/12/20 24 3:30 PM EST documented as of this encounter Care Teams Shipping And Receiving Coordinator Relationship Specialty Start Date End Date Katelyn Porter MD [address] [place] [address] PCP - General Family Medicine 02/08/23 [facility] Surgeon Orthopaedic Surgery 01/15/24 documented as of this encounter
--- OUTSIDE RECORDS SUMMARY | 2025-10-22 07:31 | XMS_ITS | Encounter Summary ---
Author Organization [employer] Address [address] [place] [address] Care Team Providers Care Candy Catcher Name Role Phone Katelyn Porter MD Primary Care Provider [phone] Reason for Visit * Reason Onset Date Comments Nurse Triage 11/09/2024 Encounter Details Date Type Department Care Team ([facility] st Contact Info) Description 11/09/2024 Telephone [facility] MED[facility] [address] [place] [address] Katelyn Porter MD [address] [place] [address] Nurse Triage Social History Tobacco Use Types [...] a callback as she missed the call [phone] * Telephone Encounter - Lorenzo Thomas - 11/09/2024 9:59 AM EST Symptom: Colds Outcome: Schedule an appointment to be seen within 24 hours Reason: Caller denied all higher acuity questions The caller accepted this outcome. documented in this encounter Plan of Treatment Upcoming Encounters Date Type Department Care Team (Late st Contact Info) Description 10/26/2025 11:00 AM EST Office Visit [facility] MED[facility]INE [address] [place] [address] eDb Tian CNM [address] [place] [address] 11/29/2025 11:30 AM EST Office Visit [facility] [address] [place] [address] Katelyn Porter MD [address] [place] [address] 12/08/2025 9:30 AM EST Clinical Support [facility] [address] [place] [address] Chelsey Sams, SURENDRA [address] [place] [address] documented as of this encounter Visit Diagnoses Not on filedocumented in this encounter Additional Health Concerns Assessment Noted Time PHQ-9 Depression Total Score: 7 10/12/20 24 3:30 PM EST documented as of this encounter Care Teams Candy Catcher Relationship Specialty Start Date End Date Katelyn Porter MD [address] [place] [id number] PCP - General Family Medicine 02/08/23 [facility] Surgeon Orthopaedic Surgery 01/15/24 documented as of this encounter
--- OUTSIDE RECORDS SUMMARY | 2025-10-22 07:31 | XMS_ITS | Encounter Summary ---
Author Organization [employer] Address [address] 7t [place] [address] Care Team Providers Care Manager Mass Name Role Phone Katelyn Portre MD Primary Care Provider [phone] Reason for Visit * Reason Onset Date Comments Med Refill 10/20/2025 Encounter Details Date Type Department Care Team ([facility] Contact Info) Description 10/20/2025 Refill [facility] CHC MED & PEDS [address] [place] [address] Chelsey Sams, RN 505 [place] [address] Social History Tobacco Use Types Packs/Day Years [...] or on edge 1 10/20/2025 10:33 AM hCelsey Camacho RN Not being able to stop [...] JOAN-7 Total Score 13 10/20/2025 10:33 AM EST McMann, Chelsey, RN documented as of this encounter Plan of Treatment Upcoming Encounters Date Type Department Care Team (Late st Contact Info) Description 10/26/2025 11:00 AM EST Office Visit [facility] MEDICINE [address] [place] [address] Deb Tian CNM [address] [place] [address] 11/29/2025 11:30 AM EST Office Visit [facility] MED & PEDS [address] [place] [address] Katelyn Porter MD 505 [place] [address] 12/08/2025 9:30 AM EST Clinical Support [facility] MED & PEDS [address] [place] [address] Chelsey Sams RN 505 [place], [place] [phone] documented as of this encounter Visit Diagnoses Not on filedocumented in this encounter Additional Health Concerns Assessment Noted Time PHQ-9 Depression Total Score: 15 025 11:53 AM EST documented as of this encounter Care Teams Manager Mass Relationship Specialty Start Date End Date Katelyn Porter MD 230 [place] [address] PCP - General Family Medicine 02/08/23 [facility] Surgeon Orthopaedic Surgery 01/15/24 documented as of this encounter
--- OUTSIDE RECORDS SUMMARY | 2025-10-22 07:31 | XMS_ITS | Encounter Summary ---
Author Organization [employer] Address [address] 7t [place] [address] Care Team Providers Care Senior Mechanical Estimator Name Role Phone Katelyn Porter MD Primary Care Provider [phone] Reason for Visit * Reason Onset Date Comments Nurse Triage 10/15/2024 Encounter Details Date Type Department Care Team ([facility] st Contact Info) Description 10/15/2024 Telephone [facility] MEDICINE [address] [place] [address] Katelyn Porter MD 505 [place] [address] Nurse Triage Social History Tobacco Use Types [...] pt. Voice mail to please call back [facility] nurses at [phone] and also let her know that I [...] to come back to be seen at [facility] or can take OTC mucinex * Telephone [...] caller accepted this outcome. Contact pt at [phone] documented in this encounter Plan of Treatment Upcoming Encounters Date Type Department Care Team (Late st Contact Info) Description 10/26/2025 11:00 AM EST Office Visit [facility] MEDICINE [address] [place] [address] Deb Tian CNM 230 [place] [address] 11/29/2025 11:30 AM EST Office Visit [facility] MED & PEDS 505 [place] [address] Katelyn Porter MD 505 [place] [address] 12/08/2025 9:30 AM EST Clinical Support [facility] MED & PEDS [address] [place] [address] Chelsey Sams, RN 505 [place] [address] documented as of this encounter Visit Diagnoses Not on filedocumented in this encounter Additional Health Concerns Assessment Noted Time PHQ-9 Depression Total Score: 7 10/12/20 24 3:30 PM EST documented as of this encounter Care Teams Senior Mechanical Estimator Relationship Specialty Start Date End Date Katelyn Porter MD 230 [place] [address] PCP - General Family Medicine 02/08/23 [facility] Surgeon Orthopaedic Surgery 01/15/24 documented as of this encounter
--- OUTSIDE RECORDS SUMMARY | 2025-10-22 07:31 | XMS_ITS | Encounter Summary ---
Author Organization [employer] Address [address] 7t [place] [address] Care Team Providers Care Signal Constructor Name Role Phone Katelyn Porter MD Primary Care Provider [phone] Reason for Visit * Reason Onset Date Comments Medication Question 09/28/2025 Encounter Details Date Type Department Care Team ([facility] Contact Info) Description 09/28/[address] [facility] CHC MED & PEDS [address] [place] [address] Katelyn Porter MD 505 [place] [address] Medication Question Social History Tobacco Use Types Packs/Day Years [...] encounter Miscellaneous Notes * Telephone Encounter - Chelsey Sams RN - 10/11/2025 11:56 AM EST TC to pt again, ENGINEER STATION MAINLINE initial appointment scheduled for 10/20 at 10am. * Telephone Encounter - Chelsey Sams RN - 10/06/2025 3:48 PM EST Fyi TC to pt x2 to schedule initial [employer] appointment, no answer. Lvm for pt to c/b. * Telephone Encounter - Katelyn Porter MD - 09/29/2025 9:57 AM EDT Rx sent * Telephone Encounter - Katelyn Porter MD - 09/29/2025 9:04 AM EDT Rx sent, if patient requiring chronic med, will need [employer] contract. * Telephone Encounter - Chelsey Sams RN - 09/28/2025 4:12 PM EDT Pt asking for a short supply until appointment with PCP on 10/06/25. Please advise. * Telephone Encounter - Deshaun Hannon - 09/28/2025 3:56 PM EDT Tc from pt requesting Hydrocodone. Chief Warden advised pt that an apt is needed to be evaluated for the medication. Pt agreed for 10/06 at 10:30 but will like a short supply until apt. Any questions contact pt at [phone] documented in this encounter Plan of Treatment Upcoming Encounters Date Type Department Care Team (Late st Contact Info) Description 10/26/2025 11:00 AM EST Office Visit [facility] MEDICINE 230 [place] [address] Deb Tian CNM 230 [place] [address] 11/29/2025 11:30 AM EST Office Visit [facility] MED & PEDS [address] [place] [address] Katelyn Porter MD 505 [place] [address] 12/08/2025 9:30 AM EST Clinical Support [facility] MED & PEDS [address] [place] [address] Chelsey Sams, SURENDRA 505 [place] [address] documented as of this encounter Visit Diagnoses Diagnosis Acute pain of left shoulder Menopausal symptom- Primary documented in this encounter Additional Health Concerns Assessment Noted Time PHQ-9 Depression Total Score: 7 10/12/20 24 3:30 PM EST documented as of this encounter Care Teams Signal Constructor Relationship Specialty Start Date End Date Katelyn Porter MD [address] [place] [address] PCP - General Family Medicine 02/08/23 [facility] Surgeon Orthopaedic Surgery 01/15/24 documented as of this encounter
--- OUTSIDE RECORDS SUMMARY | 2025-10-22 07:31 | XMS_ITS | Encounter Summary ---
Author Organization [employer] Address [address] 7t [place] [address] Care Team Providers Care Drawbench Operator Helper Name Role Phone Perlita Dill MD Primary Care Provider [phone] Katelyn Porter MD Primary Care Provider [phone] Encounter Details Date Type Department Care Team ([facility] Contact Info) Description 12/05/2022 Orders Only [facility] CHC MED & PEDS 505 [place], [place] [phone] Katelyn Porter MD 505 [place], [place] [phone] Hyperlipidemia, unspecified hyperlipidemia type (Primary Dx) Social [...] Upcoming Encounters Date Type Department Care Team ([facility] Contact Info) Description 10/26/2025 11:00 AM EST Office Visit [facility] MEDICINE [address] [place] [address] [place] [address] Deb Tian, CNM 230 [place] [address] 11/29/2025 11:30 AM EST Office Visit [facility] MED & PEDS 505 [place] [address] Katelyn Porter MD 505 [place] [address] 12/08/2025 9:30 AM EST Clinical Support [facility] MED & PEDS [address] [place] [address] Chelsey Sams, SURENDRA 505 [place], [place] [phone] documented as of this encounter Visit Diagnoses Diagnosis Hyperlipidemia, unspecified hyperlipidemia type- Primary Menopausal symptom- Primary documented in this encounter Care Teams Drawbench Operator Helper Relationship Specialty Start Date End Date Perlita Dill MD [address] [place] [address] PCP - General Family Medicine 04/01/13 02/07/23 Katelyn Porter MD [address] [place] [address] PCP - General Family Medicine 02/08/23 [facility] Surgeon Orthopaedic Surgery 01/15/24 documented as of this encounter
--- OUTSIDE RECORDS SUMMARY | 2025-10-22 07:31 | XMS_ITS | Encounter Summary ---
Author Organization [employer] Address [address] 7t [place] [address] Care Team Providers Care Processor Inspector Name Role Phone Katelyn Porter MD Primary Care Provider [phone] Encounter Details Date Type Department Care Team ([facility] st Contact Info) Description 09/28/2025 Telephone [facility] [address] [place] [address] Zamzam Nelson RN [address] [place] [address] Social History Tobacco Use Types Packs/Day Years [...] encounter Miscellaneous Notes * Telephone Encounter - Zamzam Nelson RN - 09/28/2025 3:51 PM EDT Received a call from [facility] pharmacy, regarding refill for Hydrocodone. Ceci states pt is looking fora refill of her medication, last sent on 09/20 for 4 day supply. Advised BROOM STITCHER out of the office today and will task to her for tomorrow am. documented in this encounter Plan of Treatment Upcoming Encounters Date Type Department Care Team (Late st Contact Info) Description 10/26/2025 11:00 AM EST Office Visit [facility] MEDICINE [address] [place] [address] Deb Tian CNM [address] [place] [address] 11/29/2025 11:30 AM EST Office Visit [facility] MED & PEDS 505 [place] [address] Katelyn Porter MD 505 [place] [address] 12/08/2025 9:30 AM EST Clinical Support [facility] CHC MED & PEDS [address] [place] [address] Chelsey Sams, RN [address] [place] [address] documented as of this encounter Visit Diagnoses Not on filedocumented in this encounter Additional Health Concerns Assessment Noted Time PHQ-9 Depression Total Score: 7 10/12/20 24 3:30 PM EST documented as of this encounter Care Teams Processor Inspector Relationship Specialty Start Date End Date Katelyn Porter MD 230 [place] [address] PCP - General Family Medicine 02/08/23 [facility] Surgeon Orthopaedic Surgery 01/15/24 documented as of this encounter
--- OUTSIDE RECORDS SUMMARY | 2025-10-22 07:31 | XMS_ITS | Encounter Summary ---
Author Organization [employer] Address [address] 7t [place] [address] Care Team Providers Care Accounts Payable Associate Name Role Phone Katelyn Porter MD Primary Care Provider [phone] Encounter Details Date Type Department Care Team ([facility] Contact Info) Description 10/20/2025 Telephone [facility] CHC MED & PEDS 505 [place] [address] Chelsey Sams, RN 505 [place] [address] Social History Tobacco Use Types Packs/Day Years [...] sit still 2 10/20/2025 10:33 AM Chelsey Caamcho RN Becoming easily annoyed or irritable 2 10/20/2025 10:33 AM Chelsey Camacho RN Feeling afraid as if somethi ng awful might happen 1 10/20/2025 10:33 AM Chelsey Camacho RN JOAN-7 Total Score 13 10/20/2025 10:33 AM Chelsey Camacho RN documented as of this encounter Miscellaneous Notes * Telephone Encounter - Katelyn Porter MD - 10/20/2025 10:38 AM EST Tier 2 * Telephone Encounter - Chelsey Sams RN - 10/20/2025 10:35 AM EST .What HOSPICE RN Tier would you like this patient to be? Tier 1 = HIGH RISK, Monthly HOSPICE RN visits Tier 2 = MODerate RISK, Q3 Month visits Tier 3 = LOW RISK = Q4-6 month visits documented in this encounter Plan of Treatment Upcoming Encounters Date Type Department Care Team (Late st Contact Info) Description 10/26/2025 11:00 AM EST Office Visit [facility] MEDICINE [address] [place] [address] Deb Tian CNM [address] [place] [address] 11/29/2025 11:30 AM EST Office Visit [facility] MED & PEDS 505 [place] [address] Katelyn Porter MD 505 [place] [address] 12/08/2025 9:30 AM EST Clinical Support [facility] MED & PEDS 505 [place] [address] Chelsey Sams, SURENDRA 505 [place] [address] documented as of this encounter Visit Diagnoses Not on filedocumented in this encounter Additional Health Concerns Assessment Noted Time PHQ-9 Depression Total Score: 15 025 11:53 AM EST documented as of this encounter Care Teams Accounts Payable Associate Relationship Specialty Start Date End Date Katelyn Porter MD [address] [place] [address] PCP - General Family Medicine 02/08/23 [facility] Surgeon Orthopaedic Surgery 01/15/24 documented as of this encounter
--- OUTSIDE RECORDS SUMMARY | 2025-10-22 07:31 | XMS_ITS | Encounter Summary ---
Author Organization [employer] Address [address] 7t [place] [address] Care Team Providers Care Senior Education Specialist Name Role Phone Katelyn Porter MD Primary Care Provider [phone] Reason for Visit * Reason Comments Med Refill Encounter Details Date Type Department Care Team ([facility] Contact Info) Description 02/17/2024 Refill [facility] CHC MED & PEDS [address] [place], [place] [phone] Katelyn Porter MD 505 [place] [address] Social History Tobacco Use Types Packs/Day Years [...] Description 10/26/2025 11:00 AM EST Office Visit [facility] MEDICINE [address] [place] [address] Deb Tian CNM [address] [place] [address] 11/29/2025 11:30 AM EST Office Visit [facility] MED & PEDS [address] [place] [address] Katelyn Porter MD [address] [place] [address] 12/08/2025 9:30 AM EST Clinical Support [facility] MED & PEDS [address] [place] [address] Chelsey Sams, RN 505 [place] [address] documented as of this encounter Visit Diagnoses Not on filedocumented in this encounter Additional Health Concerns Assessment Noted Time PHQ-9 Depression Total Score: 3 05/16/20 23 11:16 AM EDT documented as of this encounter Care Teams Senior Education Specialist Relationship Specialty Start Date End Date Katelyn Porter MD [address] [place] [address] PCP - General Family Medicine 02/08/23 [facility] Surgeon Orthopaedic Surgery 01/15/24 documented as of this encounter
--- OUTSIDE RECORDS SUMMARY | 2025-10-22 07:31 | XMS_ITS | Encounter Summary ---
Author Organization [employer] Address [address] [place] [address] Care Team Providers Care Polysomnograph Tech Name Role Phone Katelyn Porter MD Primary Care Provider [phone] Reason for Visit * Reason Comments Med Refill Encounter Details Date Type Department Care Team ([facility] Contact Info) Description 03/27/[address] [facility] CHC MED & PEDS [address] [place], [place] [phone] Katelyn Porter MD 505 [place] [address] Arthritis Social History Tobacco Use Types Packs/Day [...] Description 10/26/2025 11:00 AM EST Office Visit [facility] MEDICINE [address] [place] [address] Deb Tian CNM [address] [place] [address] 11/29/2025 11:30 AM EST Office Visit [facility] MED & PEDS [address] [place] [address] Katelyn Porter MD 505 [place] [address] 12/08/2025 9:30 AM EST Clinical Support [facility] MED & PEDS [address] [place] [address] Chelsey Sams RN 505 [place] [address] documented as of this encounter Visit Diagnoses Diagnosis Arthritis Unspecified arthropathy, site unspecified Menopausal symptom- Primary documented in this encounter Additional Health Concerns Assessment Noted Time PHQ-9 Depression Total Score: 7 10/12/20 24 3:30 PM EST documented as of this encounter Care Teams Polysomnograph Tech Relationship Specialty Start Date End Date Katelyn Porter MD 230 [place] [address] PCP - General Family Medicine 02/08/23 [facility] Surgeon Orthopaedic Surgery 01/15/24 documented as of this encounter
--- OUTSIDE RECORDS SUMMARY | 2025-10-22 07:31 | XMS_ITS | Encounter Summary ---
Author Organization [employer] Address [address] [facility] [facility] 7t [place] [address] Care Team Providers Care Surgical Garment Assembly Supervisor Name Role Phone Perlita Dill MD Primary Care Provider [phone] Katelyn Porter MD Primary Care Provider [phone] Reason for Visit * Reason Onset Date Comments returning call 12/05/2022 Encounter Details Date Type Department Care Team ([facility] Contact Info) Description 12/05/2022 Telephone [facility] CHC MED & PEDS 505 [place] [address] Perlita Dill MD 505 [place] [address] returning call Social History Tobacco Use Types [...] Upcoming Encounters Date Type Department Care Team ([facility] Contact Info) Description 10/26/2025 11:00 AM EST Office Visit [facility] MEDICINE [address] [place] [address] Deb Tian, BHUMI [address] [place] [address] 11/29/2025 11:30 AM EST Office Visit [facility] MED & PEDS 505 [place] [address] Katelyn Porter MD 505 [place] [address] 12/08/2025 9:30 AM EST Clinical Support [facility] MED & PEDS [address] [place] [address] Chelsey Sams, SURENDRA [address] [place] [address] documented as of this encounter Visit Diagnoses Not on filedocumented in this encounter Care Teams Surgical Garment Assembly Supervisor Relationship Specialty Start Date End Date Perlita Dill MD [address] [place] [address] PCP - General Family Medicine 04/01/13 02/07/23 Katelyn Porter MD [address] [place] [address] PCP - General Family Medicine 02/08/23 [facility] Surgeon Orthopaedic Surgery 01/15/24 documented as of this encounter
--- OUTSIDE RECORDS SUMMARY | 2025-10-22 07:31 | XMS_ITS | Encounter Summary ---
Author Organization [employer] Address [address] 7[address] [place] [address] Care Team Providers Care Chair Car Attendant Name Role Phone Katelyn Porter MD Primary Care Provider [phone] Reason for Visit * Reason Comments Med Refill Encounter Details Date Type Department Care Team ([facility] Contact Info) Description 05/07/2025 Refill [facility] CHC MED & PEDS [address] [place], [place] [phone] Katelyn Porter MD 505 [place] [address] Arthritis Social History Tobacco Use Types Packs/Day [...] 11:00 AM EST Office Visit [facility] MEDICINE [address] [place] [address] Deb Tian CNM 230 [place] [address] 11/29/2025 11:30 AM EST Office Visit [facility] MED & PEDS 505 [place] [address] Katelyn Porter MD 505 [place] [address] 12/08/2025 9:30 AM EST Clinical Support [facility] MED & PEDS 505 [place] [address] Chelsey Sams, SURENDRA 505 [place] [address] documented as of this encounter Visit Diagnoses Diagnosis Arthritis Unspecified arthropathy, site unspecified Menopausal symptom- Primary documented in this encounter Additional Health Concerns Assessment Noted Time PHQ-9 Depression Total Score: 7 10/12/20 24 3:30 PM EST documented as of this encounter Care Teams Chair Car Attendant Relationship Specialty Start Date End Date Katelyn Porter MD [address] [place] [address] PCP - General Family Medicine 02/08/23 [facility] Surgeon Orthopaedic Surgery 01/15/24 documented as of this encounter
--- OUTSIDE RECORDS SUMMARY | 2025-10-22 07:31 | XMS_ITS | Encounter Summary ---
Author Organization [employer] Address [address] [place] [address] Care Team Providers Care Visual Basic Developer Name Role Phone Katelyn Porter MD Primary Care Provider [phone] Reason for Visit * Reason Onset Date Comments Med Refill 12/10/2024 Encounter Details Date Type Department Care Team ([facility] Contact Info) Description 12/10/2024 Telephone [facility] MEDICINE [address] [place] [address] Katelyn Porter MD [address] [place] [address] Med Refill Social History Tobacco Use Types [...] hydroCHLOROthiazide 12.5 MG [facility] documented in this encounter Plan of Treatment Upcoming Encounters Date Type Department Care Team ([facility] st Contact Info) Description 10/26/2025 11:00 AM EST Office Visit [facility] MEDICINE [address] [place] [address] Deb Tian CNM [address] [place] [address] 11/29/2025 11:30 AM EST Office Visit [facility] CHC MED & PEDS [address] [place] [address] Katelyn Porter MD [address] [place] [address] 12/08/2025 9:30 AM EST Clinical Support [facility] CHC MED & PEDS [address] [place] [address] Chelsey Sams, RN 505 [place] [address] documented as of this encounter Visit Diagnoses Not on filedocumented in this encounter Additional Health Concerns Assessment Noted Time PHQ-9 Depression Total Score: 7 10/12/20 24 3:30 PM EST documented as of this encounter Care Teams Visual Basic Developer Relationship Specialty Start Date End Date Katelyn Porter MD 230 [place] [address] PCP - General Family Medicine 02/08/23 [facility] Surgeon Orthopaedic Surgery 01/15/24 documented as of this encounter
--- OUTSIDE RECORDS SUMMARY | 2025-10-22 07:31 | XMS_ITS | Clinical Summary ---
Author Organization [facility] Address [address] [place] [address] Phone Care Team Providers Care Supervisor Mold Shop Name Role Phone Katelyn Porter MD Primary Care Provider [phone] Surgical History Surgery Date Site/Laterality Comments COLONOSCOPY 08/07 PROCEDURE: TX COLONOSCOPY STOMA DX INCLUDING COLLJ SPEC SPX; COMMENT: [employer] OVARIAN CYST REMOVAL PROCEDURE: [place] OVARIAN CYSTECTOMY UNI/BI TUBAL LIGATION PROCEDURE: HISTORICAL [...] Years Used Date Smoking Tobacco: Former Cigarettes 0 Q uit: 03/02/1992 Alcohol Use Standard Drinks/Week [...] Health Screening 12/22/2024 COVID-19 Vaccine (1 - 2024-2 6 season) 2025 Influenza Vaccine (#1) 2025 RSV [...] to complete this topic Insurance MEDICAID - [place] [facility] Member Subscriber Plan / Payer (Ef fective 2024-Present) Name:NICOL HA Relation to Subscriber:Self Name:Nicol Ha Payer ID:[id number] Group ID:[id number] Type:Not on file Address: [address] [place] [id number] Care Teams Supervisor Mold Shop Relationship Specialty Start Date End Date Katelyn Porter MD 230 [place] [address] PCP - General Family Medicine 06/08/25
--- OUTSIDE RECORDS SUMMARY | 2025-10-22 07:31 | XMS_ITS | Encounter Summary ---
Author Organization [employer] Address [address] [place] [address] Care Team Providers Care Lubrication Supervisor Name Role Phone Katelyn Porter MD Primary Care Provider [phone] Reason for Visit * Reason Onset Date Comments rs/double ins [facility] and [facility] 06/25/2024 Encounter Details Date Type Department Care Team (Late st Contact Info) Description 06/25/2024 Telephone C [facility] [address] [place] [address] Rica Hernandez BDS rs/double ins [facility] and [...] was not documented. Email also sent to [facility] concerning appt DR documented in this encounter Plan of Treatment Upcoming Encounters Date Type Department Care Team ([facility] st Contact Info) Description 10/26/2025 11:00 AM EST Office Visit [facility] MED[facility] [address] [place] [address] Deb Tian CNM [address] [place] [address] 11/29/2025 11:30 AM EST Office Visit [facility] MED & PEDS [address] [place] [address] Katelyn Porter MD [address] [place] [address] 12/08/2025 9:30 AM EST Clinical Support [facility] MED & PEDS [address] [place] [address] Chelsey Sams, RN [address] [place] [address] documented as of this encounter Visit Diagnoses Not on filedocumented in this encounter Additional Health Concerns Assessment Noted Time PHQ-9 Depression Total Score: 3 05/16/20 23 11:16 AM EDT documented as of this encounter Care Teams Lubrication Supervisor Relationship Specialty Start Date End Date Katelyn Porter MD [address] [place] [id number] PCP - General Family Medicine 02/08/23 [facility] Surgeon Orthopaedic Surgery 01/15/24 documented as of this encounter
--- OUTSIDE RECORDS SUMMARY | 2025-10-22 07:31 | XMS_ITS | Encounter Summary ---
Author Organization [employer] Address [address] [facility] [address] [place] [address] Care Team Providers Care Circulation Supervisor Name Role Phone Perlita Dill MD Primary Care Provider [phone] Katelyn Porter MD Primary Care Provider [phone] Reason for Visit * Reason Onset Date Comments returning call 12/05/2022 Encounter Details Date Type Department Care Team ([facility] st Contact Info) Description 12/05/2022 Telephone [facility] MED & PEDS [address] [place] [address] Perlita Dill MD [address] [place] [address] returning call Social History Tobacco Use Types [...] Description 10/26/2025 11:00 AM EST Office Visit [facility] MEDICINE [address] [place] [address] Deb Tian CNM [address] [place] [address] 11/29/2025 11:30 AM EST Office Visit [facility] MED & PEDS [address] [place], [place] [phone] Katelyn Porter MD [address] [place], [place] [phone] 12/08/2025 9:30 AM EST Clinical Support [facility] MED & PEDS [address] [place], [place] [phone] Chelsey Sams, SURENDRA [address] [place], [place] [phone] documented as of this encounter Visit Diagnoses Not on filedocumented in this encounter Care Teams Circulation Supervisor Relationship Specialty Start Date End Date Perlita Dill MD [address] [place] [address] PCP - General Family Medicine 04/01/13 02/07/23 Katelyn Porter MD [address] [place] [id number] PCP - General Family Medicine 02/08/23 [facility] Surgeon Orthopaedic Surgery 01/15/24 documented as of this encounter
--- OUTSIDE RECORDS SUMMARY | 2025-10-22 07:31 | XMS_ITS | Clinical Summary ---
Author Organization [facility] Address [address] [place] [address] Care Team Providers Care Dye Boarding Machine Operator Name Role Phone Perlita Dill MD Primary Care Provider [phone] Medications Medication Sig Dispensed Refills Start Date [...] age to complete this topic Care Teams Dye Boarding Machine Operator Relationship Specialty Start Date End Date Perlita Dill MD [address] [facility] [address] PCP - General Adult Medicine 03/06/21
== END 2025-10-22 07:23 | disposition home or self-care (01) ==
LOC: HO.MRI 07:22
PROVIDERS: PCP Family Medicine; Visit Provider Family Medicine
DX: M25.512 Pain in left shoulder (principal)
CPT/HCPCS: 73221

== ENCOUNTER 2025-11-04 11:15 | Outpatient (AMB) | payer OTHER, SELFPAY ==
--- NOTE | 2025-11-04 11:19 | MHC.OFFVIS ---
Vital Signs 11/04/25 11:21 Height 5 ft 2 in Weight 134 lb BMI 24.5 Intake Visit Reasons: New Prob - left shoulder MRI review Intake Note: Nicol is a 65 year old female who presents today for a MRI review of her left shoulder. Patient reports that she is having pain on the posterior aspect of the shoulder. She is also having a burning sensation down the arm. Patient mentions when her arm is elevated it relieves the pain a little. Allergies codeine (CODEINE) Allergy (Intermediate, Verified 11/04/25 11:22) VOMITTING milnacipran (From [place]) Allergy (Intermediate, Verified 11/04/25 11:22) Gastrointestinal Upset HPI HPI New Prob - left shoulder MRI review: Details: Ms. Ha is a right-hand dominant 65-year-old female who presents to the office today for evaluation of left shoulder pain. She reports the pain has been present for quite some time. When asking her the location of the pain she points to the posterior lateral aspect of the shoulder that travels down the arm into her hand. She also reports a burning sensation as well as numbness and tingling in the left hand. The only thing that has been able to alleviate some of her pain is by extending her arm up and resting it over her head. REPLACED BY [facility] Medical History (Updated 11/04/25 @ 14:10 by Jackelyn Dobbins PA-C) History of colitis Bowel habit changes GERD (gastroesophageal reflux disease) Thyroid disease Fibromyalgia Joint pain Irritable bowel syndrome Stress incontinence HTN (hypertension) Surgical History Hx of ovarian cystectomy Hx of repair of left rotator cuff Hx of tubal ligation Hx of hysterectomy History of bladder surgery History of esophagogastroduodenoscopy (EGD) H/O colonoscopy Social History Household Members Other:: lives with BF Alcohol intake: never Patient Tobacco Use Status: Never used Tobacco Substance Use Type: Marijuana Current occupational status: employed Current occupation: [employer] Review of Systems Const All systems reviewed & are unremarkable except as noted in HPI and below Physical Exam Vital Signs: BMI result Body Mass Index 24.5 Const General: cooperative, healthy appearing and no acute distress Resp Effort & Inspection: normal respiratory effort and able to speak in complete sentences Extrem Other: Left shoulder: Full shoulder ROM in all planes. Negative cross-body reach. Negative empty can. Negative drop arm. Reports occasional numbness and tingling in all digits. Psych Appearance: grossly normal Mental Status: mental status grossly normal Attitude: cooperative Assessment & Plan Assessment & Plan (1) Cervical radiculopathy: Code(s): M54.12 - Radiculopathy, cervical region Category: Medical Plan Ms. Ha is a right-hand dominant 65-year-old female who presents to the office today for evaluation of left shoulder pain. She reports the pain has been present for quite some time. When asking her the location of the pain she points to the posterior lateral aspect of the shoulder that travels down the arm into her hand. She also reports a burning sensation as well as numbness and tingling in the left hand. The only thing that has been able to alleviate some of her pain is by extending her arm up and resting it over her head. Additionally, patient does endorse having neck issues around the C5 level but is unsure what her actual diagnosis is. While in the office today, I discussed with the patient that her symptoms are likely due to cervical radiculopathy as it is affecting her entire left upper extremity with pain, numbness and tingling in his alleviated with extending her arm up above shoulder level. I have recommended physical therapy however, the patient reports that she does not wish to attend this at this time inferior that this will exacerbate her symptoms. I have recommended evaluation by physiatry for further evaluation and treatment in which the patient is agreeable. Left shoulder MRI obtained on 10/22/2025: * Thinning of the anterior fibers of the supraspinatus. This could reflect postsurgical result. No full-thickness tendon defect or retraction is seen. Mild supraspinatus and infraspinatus tendinosis. * Mild-moderate distal subscapularis tendinosis. * Mild acromioclavicular arthritis. C-spine x-rays obtained on 01/06/2024: IMPRESSION: 1. Interval progression of Cervical spondylosis C5-C7. 2. Unchanged Grade 1 retrolisthesis C5-C6. 3. No acute fracture or dislocation. No neural foraminal narrowing. 4. Interval development of Mild C4-C5 kyphosis. Coding Level of Care Code Est Pt Level 3 (83104) Diagnoses Cervical radiculopathy M54.12
[2025-11-04 11:21] VITALS: BMI 24.5
== END 2025-11-04 13:06 | disposition home or self-care (01) ==
PROVIDERS: PCP Family Medicine; Visit Provider Physician Assistant
DX: M54.12 Radiculopathy, cervical region (principal)
CPT/HCPCS: 99213

== ENCOUNTER → 2025-11-04 11:15 | Outpatient (BNVA) | payer OTHER, SELFPAY | PROVIDERS: PCP Family Medicine; Visit Provider Physician Assistant | DX: M25.512 Pain in left shoulder (principal); R20.0 Anesthesia of skin; R20.2 Paresthesia of skin | CPT/HCPCS: 99212 ==